=== PATIENT | female | born 1935 | race African-American/Black ===

== ENCOUNTER 2020-12-08 12:37 | Emergency (ER) | payer MEDICARE, SELFPAY ==
[2020-12-08] VITALS (9 sets, daily range): BP systolic 100–159; BP diastolic 46–82; PULSE 54–82; RESP 14–19; TEMP 36.4–37; O2SAT 99–100
--- NOTE | ~2020-12-08 | CT_ITS ---
EXAMINATION: CTA chest PE protocol EXAM DATE: 12/08/2020 17:03 INDICATION: Right-sided pain. TECHNIQUE: Spiral CTA of the chest (pulmonary arteries) was performed with 100 cc Omnipaque 350 intr avenous contrast injection. Images were acquired during the pulmonary arterial phase. Coronal maxi mum intensity projection 3D-reconstructions were created by the technologist on dedicated workstation . Axial, coronal and sagittal reformatted images were reviewed. The dose-length product (DLP) for t his examination was 206.35 mGy-cm. The exposure was tailored according to patient size (auto mA exp osure control), and iterative reconstruction (ASIR) was used as additional dose reduction technique. There is no prior study for comparison. FINDINGS: Pulmonary arteries are well opacified and without intraluminal filling defects. No thora cic aortic dissection. The lungs are clear. There are no pleural or pericardial effusions. Trach eobronchial tree is patent. There is no mediastinal, hilar or axillary lymphadenopathy. There is no pneumothorax. Heart normal in size. There is mild coronary arterial calcification, arterial sc lerosis. There are dense mitral annular calcifications. Upper abdomen is unremarkable. Patient has diffuse idiopathic skeletal hyperostosis (DISH). IMPRESSION: 1. No pulmonary emboli or acute cardiopulmonary findings. 2. Mild to moderate emphysema. Reviewed, dictated and finalized at location A.
--- NOTE | ~2020-12-08 | XR_ITS ---
EXAMINATION: XR chest 2V EXAM DATE: 12/08/2020 13:58 INDICATION: Epigastric chest pressure. TECHNIQUE: Frontal and lateral projections of the chest obtained and reviewed. There is no prior kevin dy for comparison. FINDINGS: There are dense mitral annular calcifications. Some chronic hyperinflation. There is aorti c arteriosclerosis. There are bony degenerative changes. Mild cardiomegaly. No confluent consolidatio n, pneumothorax or pleural effusion suspected. IMPRESSION: 1. Mild cardiomegaly. Reviewed, dictated and finalized at location A. IMPRESSION: 1. Mild cardiomegaly.
--- NOTE | 2020-12-08 12:40 | ECG_ITS ---
Measurements Intervals Palmer Rate: 63 P: 74 MA: 166 QRS: 8 QRSD: 105 T: 46 QT: 349 QTc: 357 Interpretive Statements SINUS RHYTHM NONSPECIFIC T-WAVE ABNORMALITY- INF/HIGH LAT LEADS BORDERLINE ECG Electronically Signed On 12-08-2020 15:22:59 CDT by Avery Valencia D.O.
[2020-12-08 12:59] LABS: Basophils Absolute Auto 0.1 K/mm3 (0.0-0.1); Basophils Percent Auto 0.6 % (0.2-1.2); Eosinophils Absolute Auto 0.4 K/mm3 (0-0.3); Eosinophils Percent Auto 4.6 % (0-4.4); Hemoglobin 12.2 g/dL (12.0-15.0); Immature Granulocyte Absolute 0.01 K/mm3 (0.00-0.031); Immature Granulocyte Percent A 0.1 % (0-0.5); Lymphocytes Absolute Auto 2.69 K/mm3 (0.9-3.2); Mean Corpuscular HGB Conc 31.3 g/dl (32-36); Mean Corpuscular Hemoglobin 27.3 pg (26-34); Mean Corpuscular Volume 87.2 fl (80-100); Mean Platelet Volume 11.1 fl (7.4-10.4); Monocytes Absolute Auto 0.7 K/mm3 (0.1-0.6); Monocytes Percent Auto 7.8 % (2.6-8.5); Neutrophils Absolute Auto 4.9 K/mm3 (1.3-6.7); Neutrophils Percent Auto 55.9 % (45.5-73.1); Platelet Count Result 220 k/mm3 (150-375); Red Blood Count 4.47 M/mm3 (4.2-5.4); Red Cell Distribution Width 14.9 % (11.5-14.5); White Blood Count 8.7 K/mm3 (4.5-10.0)
[2020-12-08 13:10] LABS: INR 1.1; Partial Thromboplastin Time 24.7 SECONDS (22.3-36.8); Prothrombin Time 13.7 Seconds (11.1-14.7)
[2020-12-08 13:11] LABS: Anion Gap 8 mmol/L (8-16); Blood Urea Nitrogen 23 mg/dL (7-17); Calcium 9.4 mg/dL (8.4-10.2); Carbon Dioxide 23 mmol/L (22-30); Chloride 110 mmol/L (98-107); Estimated Glomerular Filt Rate 60; Glucose 171 mg/dL (65-105); Potassium 3.2 mmol/L (3.4-5.0); Sodium 141 mmol/L (137-145)
[2020-12-08 13:43] LABS: Troponin I < 0.012 ng/mL (0.000-0.034)
--- NOTE | 2020-12-08 15:43 | ED.GENADULT ---
HPI - General Adult General Chief complaint: Chest Pain Stated complaint: Epigastric Pain Time Seen by Provider: 12/08/20 14:10 Source: patient History of Present Illness HPI narrative: Patient is a 85 y/o female complaining chest pain starting approximately 2 hours ago. She states that her pain is located under both her of breast and feels like a pressure. She rates her pain as 10/10 initially, but almost completely gone at this time. She was given Aspirin and Nitro by EMS. She had some sweating. She has no SOB or vomiting. Related Data Home Medications Medication Instructions Recorded Confirmed atorvastatin 12/08/20 clonidine HCl 12/08/20 losartan 50 mg PO DAILY 12/08/20 12/08/20 triamterene 12/08/20 verapamil 12/08/20 Allergies Allergy/AdvReac Type Severity Reaction Status Date / Time No Known Allergies Allergy Verified 12/08/20 14:12 Review of Systems Review of Systems: All systems reviewed & are unremarkable except as noted in HPI and below Constitutional: Constitutional: Reports as per HPI, Denies chills, Reports excessive sweating, Denies fever(s), Denies headache(s) and Denies weakness Eyes: Eyes: Denies blurry vision ENT: Denies headache(s) and Denies neck pain Cardiovascular: Cardiovascular: Reports chest pain and Denies dyspnea Respiratory: Respiratory: Denies cough and Denies dyspnea Gastrointestinal: Gastrointestinal: Denies abdominal pain, Denies diarrhea, Denies nausea and Denies vomiting Genitourinary: Genitourinary: Denies hematuria and Denies dysuria Musculoskeletal: Musculoskeletal: Denies back pain and Denies neck pain Neurologic: Denies headache(s) and Denies weakness Exam Const: General: no acute distress and well developed Orientation/consciousness: oriented to person, oriented to place, oriented to time and patient oriented x3 HENMT: Head: normocephalic Ears: external ears normal General nose exam: Normal external nose present Eyes: General: appearance normal, both eyes and all related structures Conjunctivae: conjunctivae normal Neck: Neck: normal visual inspection and full ROM Chest: Chest palpation & inspection: normal inspection of the chest and no tenderness Resp: Effort & Inspection: normal respiratory effort Auscultation: clear to auscultation bilaterally Cardio: Rate: regular rate Rhythm: regular rhythm GI: GI Palp: No abdominal tenderness and Yes Soft to palpation Skin: General skin exam: normal color and turgor normal Neuro: General: oriented to person, oriented to place, oriented to time and patient oriented x3 Cognition (Neuro): normal cognition Extrem: General: normal to inspection, full ROM and no pedal edema Psych: Appearance: grossly normal Mental Status: mental status grossly normal Affect: normal affect Course Reevaluation(s) Reevaluation #1: Rechecked. Patient feels well. She has no chest pain at this time. Date: 12/08/20 Time: 19:25 Vital Signs Vital signs: Vital Signs Temperature 36.4 C L 12/08/20 13:30 Pulse Rate 56 L 12/08/20 13:30 Respiratory Rate 18 12/08/20 13:30 Blood Pressure 117/58 L 12/08/20 13:30 Pulse Oximetry 100 12/08/20 13:30 Temperature 36.4 C L 12/08/20 13:30 Pulse Rate 59 L 12/08/20 17:15 Respiratory Rate 19 12/08/20 17:15 Blood Pressure 146/78 H 12/08/20 17:15 Pulse Oximetry 100 12/08/20 17:15 Medical Decision Making Vital Signs Vital Signs: Vital Signs Temperature 36.4 C L 12/08/20 13:30 Pulse Rate 56 L 12/08/20 13:30 Respiratory Rate 18 12/08/20 13:30 Blood Pressure 117/58 L 12/08/20 13:30 Pulse Oximetry 100 12/08/20 13:30 Temperature 36.4 C L 12/08/20 13:30 Pulse Rate 59 L 12/08/20 17:15 Respiratory Rate 19 12/08/20 17:15 Blood Pressure 146/78 H 12/08/20 17:15 Pulse Oximetry 100 12/08/20 17:15 Lab Data Result diagrams: 12/08/20 12:51 12/08/20 12:51 Labs: Lab Results 12/08/20 12/08/20 12/08/20
[2020-12-08 16:16] LABS: Troponin I < 0.012 ng/mL (0.000-0.034)
[2020-12-08 16:36] LABS: D Dimer 0.88 ug/mL (<0.48)
[2020-12-08] MEDS: POTASSIUM CHLORIDE 20 MEQ TABLET PO (18:03)
[2020-12-08 19:13] LABS: Troponin I < 0.012 ng/mL (0.000-0.034)
== END 2020-12-08 19:55 | disposition home or self-care (01) ==
PROVIDERS: Emergency Provider Emergency Medicine
DX: E87.6 Hypokalemia (principal); R07.9 Chest pain, unspecified
CPT/HCPCS: 36415; 71046; 71275; 80048; 84484; 85025; 85380; 85610; 85730; 93005; 99284; A9270; Q9967

== ENCOUNTER 2023-11-28 15:53 | Emergency (ER) | payer MEDICARE, SELFPAY ==
[2023-11-28 16:03] VITALS: BP 154/66; PULSE 74; RESP 16; TEMP 37.1; O2SAT 98
--- NOTE | 2023-11-28 19:02 | ED.GENADULT ---
HPI - General Adult General Chief complaint: Skin/Abscess/Foreign Body Stated complaint: Throat Irritation Time Seen by Provider: 11/28/23 16:43 Source: patient and RN notes reviewed Mode of arrival: ambulatory Limitations: no limitations History of Present Illness HPI narrative: Patient presents today complaining of irritated throat with the foreign body sensation. States she woke up yesterday with the symptoms. She is still able to eat and drink appropriately without problems. She has tried no [id number] treatment prior to arrival. Denies any additional symptoms to include congestion, rhinorrhea, fever, cough, vomiting. Related Data Allergies Allergy/AdvReac Type Severity Reaction Status Date / Time No Known Allergies Allergy Verified 11/28/23 16:28 Review of Systems Review of Systems: CONSTITUTIONAL: Denies body aches, fever, chills, or sweats. EYES: Denies visual changes, redness, or discharge. ENT: Denies rhinorrhea, congestion, or otalgia.+ sore throat, foreign body sensation CARDIOVASCULAR: Denies chest pain, palpitations, or edema. RESPIRATORY: Denies cough or dyspnea. GASTROINTESTINAL: Denies abdominal pain, nausea, vomiting, or diarrhea. GENITOURINARY: Denies dysuria or hematuria. SKIN: Denies rash, itching, or wounds. MUSCULOSKELETAL: Denies back pain, joint pain, or myalgia. NEUROLOGIC: Denies headache, numbness, tingling, or weakness. PSYCH: Denies depression or anxiety. [facility] Past Medical History Medical History HLD (hyperlipidemia) HTN (hypertension) Postmenopausal Surgical History Surgical History History of cholecystectomy History of mastectomy Family History Family History Mother Breast cancer Social History Social History Smoking status: Former smoker Alcohol intake: current Drinks per week: 1 Alcohol use details: wine Substance use: never Current Housing: Decline to Answer Concerned About Future Housing: Decline to Answer Difficulty Paying Gas/Electric Bills: Decline to Answer Difficulty Paying for Meds: Decline to Answer Currently Unemployed: Decline to Answer Education: Decline to Answer Difficulty w/ Childcare or Family Care: Decline to Answer Living arrangements: alone Occupation/Education: retired Gender identity (if verbalized by the patient): Female Comments At time of signature, I have reviewed and agree with nursing past medical, surgical, social and family history unless otherwise noted. Please see nursing chart for further information. There is no relevant family history pertinent to the presenting complaint Exam Narrative: GENERAL: Well-appearing, well-nourished, and in no acute distress. HEAD: Normocephalic, atraumatic. EYES: EOMI. No redness or drainage. Conjunctivae normal. ENT: Mucous membranes pink and moist. Nares clear. No rhinorrhea. Throat mildly erythematous and edematous without exudate. Uvula midline. NECK: Normal AROM. Supple. No lymphadenopathy. Thyroid normal and nontender. CHEST: No respiratory distress. Clear to auscultation. HEART: Regular rate and rhythm. No murmur appreciated. EXTREMITIES: Normal range of motion. No edema. SKIN: Warm, dry, no rash. Capillary refill normal. Normal skin turgor. NEURO: No focal deficits. Alert and oriented x3. Gait steady. PSYCH: Normal affect. No signs of depression or anxiety. Course Course Level of Care: Express Care Visit Vital Signs Vital signs: Vital Signs Temperature 98.7 F 11/28/23 16:03 Pulse Rate 74 11/28/23 16:03 Respiratory Rate 16 11/28/23 16:03 Blood Pressure 154/66 H 11/28/23 16:03 Pulse Oximetry 98 11/28/23 16:03 Oxygen Delivery Room Air 11/28/23 16:03 Temperature 98.7 F 11/28/23 16:03 P
== END 2023-11-28 17:06 | disposition home or self-care (01) ==
PROVIDERS: Emergency Provider Nurse Practitioner; PCP Emergency Medicine
DX: R07.0 Pain in throat (principal); E78.5 Hyperlipidemia, unspecified; I10 Essential (primary) hypertension; Z87.891 Personal history of nicotine dependence
CPT/HCPCS: 87081; 87880; 99213; G0463

== ENCOUNTER 2023-12-15 10:12 | Emergency (ER) | payer MEDICARE, SELFPAY ==
--- NOTE | 2023-12-15 10:20 | ED.GENADULT ---
HPI - General Adult General Chief complaint: Unspecified Stated complaint: High B/P/ Unable To Swallow Time Seen by Provider: 12/15/23 10:41 Source: patient and family Mode of arrival: ambulatory History of Present Illness HPI narrative: patient arrives accompanied by her granddaughter. Patient states that she has a foreign body sensation in her throat. She was seen for this approximately 1 month ago. She has not followed up for her condition. She reports that she is able to swallow, but gets a sensation that pills get stuck. She reports that she did not take her blood pressure medication today because she did not want to feel this sensation. She denies any injury or trauma. She denies any choking. She is able to eat and drink, states biggest difficulty is swallowing pills Related Data Allergies Allergy/AdvReac Type Severity Reaction Status Date / Time No Known Allergies Allergy Verified 12/15/23 10:14 Review of Systems Constitutional: Constitutional: Reports as per HPI Eyes: Eyes: Reports as per HPI and Reports no additional eye complaints ENT: Reports as per HPI, Denies hoarseness, Denies neck pain and Denies tongue swelling Cardiovascular: Cardiovascular: Reports as per HPI and Reports no additional cardiovascular complaints Respiratory: Respiratory: Reports as per HPI and Reports no additional respiratory complaints Gastrointestinal: Gastrointestinal: Reports as per HPI and Denies abdominal pain PMFSH Past Medical History Medical History HLD (hyperlipidemia) HTN (hypertension) Postmenopausal Surgical History Surgical History History of cholecystectomy History of mastectomy Family History Family History Mother Breast cancer Social History Social History Smoking status: Former smoker Alcohol intake: current Drinks per week: 1 Alcohol use details: wine Substance use: never Current Housing: Decline to Answer Concerned About Future Housing: Decline to Answer Difficulty Paying Gas/Electric Bills: Decline to Answer Difficulty Paying for Meds: Decline to Answer Currently Unemployed: Decline to Answer Education: Decline to Answer Difficulty w/ Childcare or Family Care: Decline to Answer Living arrangements: alone Occupation/Education: retired Gender identity (if verbalized by the patient): Female Exam Const: General: cooperative, comfortable and no acute distress HENMT: Mouth: Yes Normal oral and palatal mucosa present, No drooling and No restricted motion Throat: posterior oropharynx normal Eyes: General: appearance normal, both eyes and all related structures Neck: Neck: normal visual inspection, full ROM, no lymphadenopathy, trachea midline, no anterior neck swelling, no lymphadenopathy noted, no midline deformity and nontender Resp: Effort & Inspection: normal respiratory effort and able to speak in complete sentences Cardio: Palpation: normal PMI Rate: regular rate Rhythm: regular rhythm Neuro: Cranial nerves: Yes CN's II-XII intact bilaterally Psych: Appearance: grossly normal Course Course Level of Care: Express Care Visit Vital Signs Vital signs: Vital Signs Temperature 98.4 F 12/15/23 10:34 Pulse Rate 90 12/15/23 10:34 Respiratory Rate 14 12/15/23 10:34 Blood Pressure 160/65 H 12/15/23 10:34 Pulse Oximetry 100 12/15/23 10:34 Oxygen Delivery Room Air 12/15/23 10:34 Temperature 98.4 F 12/15/23 10:34 Pulse Rate 90 12/15/23 10:34 Respiratory Rate 14 12/15/23 10:34 Blood Pressure 160/65 H 12/15/23 10:34 Pulse Oximetry 100 12/15/23 10:34 Oxygen Delivery Room Air 12/15/23 10:34 Medical Decision Making MDM Narrative Medical decision making narrative: patient with elevated blood
[2023-12-15 10:34] VITALS: BP 160/65; PULSE 90; RESP 14; TEMP 36.9; O2SAT 100
== END 2023-12-15 11:00 | disposition home or self-care (01) ==
PROVIDERS: Emergency Provider Nurse Practitioner Family; PCP Emergency Medicine
DX: K22.2 Esophageal obstruction (principal); I10 Essential (primary) hypertension; Z87.891 Personal history of nicotine dependence; E78.5 Hyperlipidemia, unspecified
CPT/HCPCS: 99211; G0463

== ENCOUNTER 2023-12-23 20:15 | Emergency (ER) | payer MEDICARE, SELFPAY ==
[2023-12-23 20:36] VITALS: BP 211/72; PULSE 86; RESP 18; TEMP 36.8; O2SAT 98
[2023-12-24 00:16] VITALS: BP 208/76; PULSE 76; RESP 18; O2SAT 100
--- NOTE | 2023-12-24 03:11 | PC.NURSE ---
no answer at triage
== END 2023-12-24 03:43 | disposition left against medical advice (07) ==
PROVIDERS: PCP Emergency Medicine
DX: R13.10 Dysphagia, unspecified (principal)
CPT/HCPCS: 99199

== ENCOUNTER 2024-01-20 00:07 | Day surgery (SDC) | payer MEDICARE, SELFPAY ==
[2024-01-09 13:27] VITALS: BMI 27.5
[2024-01-20 09:32] VITALS: BP 178/72; PULSE 78; RESP 20; TEMP 36; O2SAT 98; BMI 26.2
--- NOTE | 2024-01-20 09:42 | WPDANESEPPF ---
Anes - Initial Pre Proc Eval Procedure: Operation Date: 01/20/24 11:00 Proposed Procedures p Esophagogastroduodenoscopy - Darion Denny MD Date/Time: 01/20/24 09:42 Surgeon: Darion Denny MD Pre Op Diagnosis: Dysphagia, foreign body sensation, throat Patient Data Age: 88 Gender: F Height: 1.52 m Weight: 61 kg Last Vital Signs Temp 36.0 C L 01/20/24 09:32 Pulse 78 01/20/24 09:32 Resp 20 01/20/24 09:32 BP 178/72 H 01/20/24 09:32 Pulse Ox 98 01/20/24 09:32 O2 Del Method Room Air 01/20/24 09:32 Allergies Allergy/AdvReac Type Severity Reaction Status Date / Time No Known Allergies Allergy Verified 01/20/24 09:31 Home Medications Medication Instructions Recorded Confirmed Type cholecalciferol (vitamin D3) 50 50 mcg PO DAILY #90 caps 06/22/23 01/20/24 Rx mcg (2,000 unit) capsule triamcinolone acetonide 55 mcg 1 spray intranasal DAILY #16.9 mL 06/22/23 01/20/24 Rx nasal spray aerosol (Nasacort) atorvastatin 40 mg tablet 40 mg PO DAILY #100 tabs 06/29/23 01/20/24 Rx magnesium oxide 400 mg (241.3 mg 400 mg PO DAILY #100 tabs 06/29/23 01/20/24 Rx magnesium) tablet potassium chloride 10 mEq 10 meq PO DAILY #100 tabs 06/29/23 01/20/24 Rx tablet,extended release clonidine HCl 0.2 mg tablet 0.2 mg PO DAILY #90 tabs 07/01/23 01/20/24 Rx fluticasone propionate 50 1 spray intranasal BID #16 grams 07/27/23 01/20/24 Rx mcg/actuation nasal spray,suspension (Flonase Allergy Relief) alprazolam 0.5 mg tablet 0.5 mg PO BID PRN anxiety #30 tabs 11/10/23 01/20/24 Rx omeprazole 40 mg capsule,delayed 40 mg PO DAILY #90 caps 01/05/24 01/20/24 Rx release hydralazine 50 mg tablet 50 mg PO BID 01/09/24 01/20/24 History hydrochlorothiazide 25 mg tablet 25 mg PO DAILY #90 tabs 01/11/24 01/20/24 Rx Patient hx anesthesia problems: none Family hx anesthesia problems: none Results Review: All pre-operative results and documents have been reviewed as part of the pre-operative evaluation. [facility] Past Medical History Medical History HLD (hyperlipidemia) HTN (hypertension) Postmenopausal Surgical History Surgical History History of cholecystectomy Family History Family History Mother Breast cancer Social History Social History Smoking status: Former smoker Tobacco type: cigarettes Alcohol intake: current Drinks per week: 1 Alcohol use details: social Substance use: never Last use: 1993 Current Housing: Decline to Answer Concerned About Future Housing: Decline to Answer Difficulty Paying Gas/Electric Bills: Decline to Answer Difficulty Paying for Meds: Decline to Answer Currently Unemployed: Decline to Answer Education: Decline to Answer Difficulty w/ Childcare or Family Care: Decline to Answer Living arrangements: alone Occupation/Education: retired Gender identity (if verbalized by the patient): Female Spiritual care concerns: No Anes - Eval Final PreProcedure Day of Procedure 01/20/24 09:42 Patient weight: overweight Heart: regular rate and rhythm Lungs: clear to auscultation Airway: Mallampati scale class II Neurological: alert and oriented Last oral intake: >/= 8 hours ASA classification: III Emergent: no Anesthetic plan: proceed Anesthesia type and monitoring: general GIVS and standard monitoring Results Review: All pre-operative results and documents have been reviewed as part of the pre-operative evaluation. Informed Consent: The patient's anesthetic plan and its attendant risks and benefits were discussed with the patient/family/POA. Questions were solicited and answers provided to the satisfaction of the patient/family/POA.
--- NOTE | 2024-01-20 09:43 | PM.HPGS ---
History of Present Illness History of Present Illness Consent: Risks, benefits, and alternatives have been discussed and questions answered. Patient agrees to proceed with procedure. Chief complaint: Dysphagia, foreign body sensation, throat Narrative: Milena Mederos is a 88 year old female with sore throat, here for egd Review of Systems Review of Systems: All systems reviewed & are unremarkable except as noted in HPI and below PMFSH Past Medical History Medical History HLD (hyperlipidemia) HTN (hypertension) Postmenopausal Surgical History Surgical History History of cholecystectomy Family History Family History Mother Breast cancer Social History Social History Smoking status: Former smoker Tobacco type: cigarettes Alcohol intake: current Drinks per week: 1 Alcohol use details: social Substance use: never Last use: 1993 Current Housing: Decline to Answer Concerned About Future Housing: Decline to Answer Difficulty Paying Gas/Electric Bills: Decline to Answer Difficulty Paying for Meds: Decline to Answer Currently Unemployed: Decline to Answer Education: Decline to Answer Difficulty w/ Childcare or Family Care: Decline to Answer Living arrangements: alone Occupation/Education: retired Gender identity (if verbalized by the patient): Female Spiritual care concerns: No Meds Home Medications and Allergies Home Medications Medication Instructions Recorded Confirmed Type cholecalciferol (vitamin D3) 50 50 mcg PO DAILY #90 caps 06/22/23 01/20/24 Rx mcg (2,000 unit) capsule triamcinolone acetonide 55 mcg 1 spray intranasal DAILY #16.9 mL 06/22/23 01/20/24 Rx nasal spray aerosol (Nasacort) atorvastatin 40 mg tablet 40 mg PO DAILY #100 tabs 06/29/23 01/20/24 Rx magnesium oxide 400 mg (241.3 mg 400 mg PO DAILY #100 tabs 06/29/23 01/20/24 Rx magnesium) tablet potassium chloride 10 mEq 10 meq PO DAILY #100 tabs 06/29/23 01/20/24 Rx tablet,extended release clonidine HCl 0.2 mg tablet 0.2 mg PO DAILY #90 tabs 07/01/23 01/20/24 Rx fluticasone propionate 50 1 spray intranasal BID #16 grams 07/27/23 01/20/24 Rx mcg/actuation nasal spray,suspension (Flonase Allergy Relief) alprazolam 0.5 mg tablet 0.5 mg PO BID PRN anxiety #30 tabs 11/10/23 01/20/24 Rx omeprazole 40 mg capsule,delayed 40 mg PO DAILY #90 caps 01/05/24 01/20/24 Rx release hydralazine 50 mg tablet 50 mg PO BID 01/09/24 01/20/24 History hydrochlorothiazide 25 mg tablet 25 mg PO DAILY #90 tabs 01/11/24 01/20/24 Rx Allergies Allergy/AdvReac Type Severity Reaction Status Date / Time No Known Allergies Allergy Verified 01/20/24 09:31 Vital Signs Vital Signs - 24 hr 01/20/24 09:32 Temperature 96.8 F L Pulse Rate 78 Respiratory Rate 20 Blood Pressure 178/72 H Pulse Oximetry 98 Oxygen Delivery Room Air Exam Const: General: comfortable and no acute distress HENMT: Face/Nose/Sinus: Normal nares present Eyes: General: appearance normal, both eyes and all related structures Neck: Neck: no JVD Resp: Auscultation: clear to auscultation bilaterally Cardio: Rate: regular rate Rhythm: regular rhythm GI: Inspection: non-distended GI Palp: Yes Soft to palpation Skin: General skin exam: normal color Neuro: General: gait normal Speech: normal speech Extrem: General: normal to inspection Psych: Mental Status: mental status grossly normal Assessment and Plan Assessment and plan (1) Globus sensation: Code(s): R09.A2 - Foreign body sensation, throat Status: Acute Assessment and Plan: egd to assess if negative then may benefit to see ent
[2024-01-20] MEDS: LACTATED RINGERS 1,000 ML 150 ML IV CONT (09:49)
[2024-01-20 09:59] VITALS: BP 176/78; PULSE 75; RESP 21; O2SAT 95
[2024-01-20 10:09] VITALS: BP 181/83; PULSE 75; RESP 28; O2SAT 96
[2024-01-20 10:19] VITALS: BP 182/70; PULSE 67; RESP 20; O2SAT 96
== END 2024-01-20 10:41 | disposition home or self-care (01) ==
PROVIDERS: PCP Emergency Medicine; Referring Provider Nurse Practitioner; Visit Provider Internal Medicine Gastroenterology
PROC: 0DJ08ZZ Inspection of Upper Intestinal Tract, Via Natural or Artificial Opening Endoscopic (ICD-10-PCS; CPT 43235; principal; 2024-01-20 11:00)
DX: K29.50 Unspecified chronic gastritis without bleeding (principal); I10 Essential (primary) hypertension; E78.5 Hyperlipidemia, unspecified; N95.0 Postmenopausal bleeding; Z98.890 Other specified postprocedural states; Z90.49 Acquired absence of other specified parts of digestive tract; Z87.891 Personal history of nicotine dependence; Z80.3 Family history of malignant neoplasm of breast
CPT/HCPCS: 43239; 88305; J2704; J7120

== ENCOUNTER 2024-06-08 14:30 | Outpatient (CLI) | payer MEDICARE, SELFPAY ==
[2024-06-12 07:57] LABS: H pylori Ag Stool Detected
== END 2024-06-08 14:31 | disposition home or self-care (01) ==
LOC: ANHLAB 14:32
PROVIDERS: Visit Provider Internal Medicine Gastroenterology
DX: K29.70 Gastritis, unspecified, without bleeding (principal); B96.81 Helicobacter pylori [H. pylori] as the cause of diseases classified elsewhere
CPT/HCPCS: 87338

== ENCOUNTER 2024-09-27 16:38 | Outpatient (CLI) | payer MEDICARE, SELFPAY ==
--- OUTSIDE RECORDS SUMMARY | 2024-09-27 17:25 | XMS_ITS | Clinical Summary ---
Author Organization [facility] Address [address] [place] [id number] Care Team Providers Care Trader Fixed Income Name Role Phone Herlinda Peña GROUND HAND Primary Care Provider [phone] Social History Tobacco Use Types Packs/Day Years Used Date Smoking Tobacco: Never Assessed Comments Unknown Sex and Gender Information Value Date Recorded Sex Assigned at Not on file Legal Sex Female 9:56 AM CDT Gender Identity Not on file Sexual Orientation Not on file Plan of Treatment Health Maintenance Due Date Last Done Comments DTaP, Tdap and Td Vaccines (1 - Tdap) 12/05/1954 Zoster Vaccines (1 of 2) 12/05/1985 Annual Medicare Wellness Visit 12/05/2000 RSV Immunization or 60+ Years (1 - 1-dose 75+ series) 12/05/2010 COVID-19 Vaccine ( season) 2024 03/03/2022, 07/03/2021, 06/12/2021, Additional history exists PHQ-2 (Physician [facility]) 06/06/2024 Pneumococcal Vaccine: 50+ Years Completed 12/22/2021, 02/10/2017 Meningococcal B Vaccine Aged Out No l onger eligible based on patient's age to complete this topic Meningococcal Vaccine Aged Out No jefferson zafar eligible based on patient's age to complete this topic RSV Immunizations Under 20 Months Aged Out No longer eligible based on patient's age to complete this topic Insurance [employer] Member Subscriber Plan / Payer (Ef fective 2023-Present) Name:Milena Mederos Relation to Subscriber:Self Name:Milena Mederos Payer ID:[id number] (NAIC) Type:Not on file Address: [address] [address] Care Teams Trader Fixed Income Relationship Specialty Start Date End Date Herlinda Peña NP [address] [place] [address] PCP - General Nurse Practitioner Family 01/09/24
--- OUTSIDE RECORDS SUMMARY | 2024-09-27 17:25 | XMS_ITS | Clinical Summary ---
Author Organization [facility] Address [address] [place] [phone] Phone Care Team Providers Care Oncology Technician Name Role Phone Provider, None Primary Care Provider Unavailabl e Allergies No known active allergies Social History Tobacco Use Types Packs/Day Years Used Date Smoking Tobacco: Never Assessed Comments Unknown Sex and Gender Information Value Date Recorded Sex Assigned at Not on file Legal Sex Female 8:08 AM CDT Gender Identity Not on file Sexual Orientation Not on file Plan of Treatment Health Maintenance Due Date Last Done Comments DEXA Bone Density 1935 Hepatitis C Virus (HCV) Screening 1935 TdaP Immunization 1935 Zoster Immunization (1 of 2) 12/05/1985 Respiratory Syncytial Virus (RSV) Immunization (Adult) (1 - 1-dose 75+ series) 12/05/2010 Influenza Immunization (#1) 02/05/202404/06, 04/21/2021, 03/27/2020, Additional history exists SARS-COV-2 Immunization (2023- season) 2024 03/03/2022, 07/03/2021, 06/12/2021, Additional history exists Pneumococcal Immunization (50+ years) Completed 12/22/2021, 02/10/2017 Hepatitis B Immunization Aged Out No longer eligible based on patient's age to complete this topic Meningococcal Immunization (ACWY) Aged Out No longer eligible based on patient's age to complete this topic Rotavirus Immunization Aged Out No lo nger eligible based on patient's age to complete this topic [place] [address] Care Teams Oncology Technician Relationship Specialty Start Date End Date Provider, None [place] PCP - General 09/07/22
== END 2024-09-27 16:39 | disposition home or self-care (01) ==
LOC: ANHLAB 16:44
PROVIDERS: Visit Provider Internal Medicine Gastroenterology
DX: A04.8 Other specified bacterial intestinal infections (principal)
CPT/HCPCS: 87338

== ENCOUNTER 2024-10-21 06:13 | Inpatient (IN) | payer MEDICARE, SELFPAY ==
[2024-10-21] VITALS (28 sets, daily range): BP systolic 121–182; BP diastolic 52–99; PULSE 52–117; RESP 12–27; TEMP 36.4–37; O2SAT 70–100; BMI 26.4
--- NOTE | ~2024-10-21 | XR_ITS ---
EXAMINATION: XR sm bowel follow through DATE: 10/23/2024 12:25 INDICATION: Small bowel obstruction. Abdominal pain. TECHNIQUE: Sliver Lap Machine Tender radiograph(s) of the abdomen was/were obtained. Oral contrast was administered, and sequential radiographs of the abdomen were obtained until oral contrast was noted to be in the proxi mal colon. COMPARISON: CT dated 10/21/2024 FINDINGS: Sliver Lap Machine Tender radiograph demonstrates nasogastric tube tip in proximal side port in the body of the stomach. Cholecystectomy clips in right upper quadrant. Persistent mildly dilated gas-filled loops of small charlie wel in the left lower quadrant. Transit time from the stomach to proximal colon was approximately 3 h ours. Persistent mild dilation of a few loops of small bowel in the central to left lower quadrant of the abdomen. There is a normal mucosal fold pattern throughout the small bowel. IMPRESSION: 1. Persistent mild dilation of a few loops of small bowel in the mid to left lower quadrant of the ab domen with mildly delayed small bowel transit time of 3 hours consistent with persistent partial smal l bowel obstruction. Reviewed, dictated and finalized at location A. IMPRESSION: 1. Persistent mild dilation of a few loops of small bowel in the mid to left lo wer quadrant of the abdomen with mildly delayed small bowel transit time of 3 h ours consistent with persistent partial small bowel obstruction.
--- NOTE | ~2024-10-21 | XR_ITS ---
EXAMINATION: XR abdomen/kub 1V DATE: 10/23/2024 06:06 INDICATION: Small bowel obstruction TECHNIQUE: A supine view of the abdomen on 2 radiographs was obtained. COMPARISON: 10/22/2024 FINDINGS: Nasogastric tube tip in proximal side port in the body of the stomach. Cholecystectomy clips in right upper quadrant. Again seen are few mildly dilated gas-filled loops of small bowel in the central abd omen consistent with small bowel obstruction. Mild streaky bibasilar opacities represent atelectasis or pneumonia. Severe lumbar spondylosis. IMPRESSION: 1. Persistent small bowel obstruction. 2. Mild streaky bibasilar atelectasis versus pneumonia. Reviewed, dictated and finalized at location A.
--- NOTE | ~2024-10-21 | XR_ITS ---
Exam: Abdomen 1V HISTORY: sbo COMPARISON: 10/21/2024 TECHNIQUE: Supine images of the abdomen FINDINGS: Redemonstration of a nasogastric tube, projecting over the left upper quadrant, presumably within the stomach. The tube is curved upon itself, for which withdrawal of approximately 4 cm is suggested for optimal r adiographic placement. Redemonstration of multiple loops of prominent small bowel, to the left of midline within the mid to lower abdomen, without nicho dilatation. These loops measure 2.7 cm in greatest caliber. Moderate mural thickening is, however, noted. A paucity of bowel gas within the colon. Redemonstration of a focus of air within the distal colon, without air in the rectum. IMPRESSION: Findings consistent with patient's known small bowel obstruction. Small bowel follow-through with water soluble contrast may provide additional information (and may we ll be therapeutic), if the patient is clinically able. Reviewed, dictated and finalized at location A. IMPRESSION: Findings consistent with patient's known small bowel obstruction. Small bowel follow-through with water soluble contrast may provide additional i nformation (and may well be therapeutic), if the patient is clinically able.
--- NOTE | ~2024-10-21 | XR_ITS ---
Upright portable view of the abdomen Clinical history: NG tube placement Findings: NG tube placed in satisfactory position. Bowel gas pattern is nonspecific. No evidence for obstruction or free air. No abnormal mass lesion or calcification is seen. Osseous structures are int act. Impression: NG tube in satisfactory position. Nonspecific bowel gas pattern as imaged. Reviewed, dictated and finalized at [facility]. Impression: NG tube in satisfactory position. Nonspecific bowel gas pattern as imaged.
--- NOTE | ~2024-10-21 | CT_ITS ---
CT of the Abdomen and Pelvis: Indication: Abdominal pain Technique: 2.5 mm axial scans were obtained through the abdomen and pelvis following intravenous adm inistration of 100 cc of Omnipaque 350. Dose reduction technique was used on this scan by utilizing a utomated exposure control and iterative reconstruction technique. The dose-length product (DLP) was 3 25.89 mGy-cm. Findings: Scans through the lung bases are unremarkable. The liver, spleen, pancreas, and adrenal glands are within normal limits. Cholecystectomy clips are p resent. Bilateral renal cysts are present. There are severe, extensive atherosclerotic calcifications of the aorta and iliac vessels. No lymphadenopathy. There are multiple mildly distended small bowel loops at the proximal to mid small bowel with decompr essed distal small bowel and large bowel. There is small amount of ascites with diffuse mesenteric ed peter and engorgement of the vasa recta, especially in the lower abdomen/pelvis. Findings are compatibl e with small bowel obstruction. Images through the pelvis were performed. Urinary bladder unremarkable. Status post hysterectomy. No adnexal mass seen. Impression: Small bowel obstruction, as detailed above. Associated small amount of ascites and mesenteric edema. Reviewed, dictated and finalized at location . Impression: Small bowel obstruction, as detailed above. Associated small amount of ascites and mesenteric edema.
--- NOTE | ~2024-10-21 | XR_ITS ---
Supine and upright views of the abdomen Clinical history: Small bowel obstruction COMPARISON: 10/23/2024 Findings: NG tube in place. No free air seen. Oral contrast present in large bowel. A few minimally d istended small bowel loops are present, decreased in caliber from prior exam. No abnormal mass lesion or calcification is seen. Osseous structures are intact. Impression: Nonspecific bowel gas pattern overall. NG tube in place. Reviewed, dictated and finalized at location . Impression: Nonspecific bowel gas pattern overall. NG tube in place.
--- NOTE | ~2024-10-21 | XR_ITS ---
Portable chest x-ray Comparison: 12/08/2020 Clinical History: Leukocytosis Findings: NG tube in satisfactory position. Lungs are clear, without focal consolidation or pleural effusion. Possible COPD. Prominent mitral annular calcification present. Cardiomediastinal silhouett e is stable. Bones and soft tissues are unremarkable. Impression: Clear lungs. Possible COPD. NG tube in place. Reviewed, dictated and finalized at location M. Impression: Clear lungs. Possible COPD. NG tube in place.
--- NOTE | 2024-10-21 06:14 | ECG_ITS ---
Test Date: 2024-10-21 06:18:58 Measurements Intervals [place] Rate: 94 P: 0 OK: 0 QRS: 19 QRSD: 104 T: 256 QT: 407 QTc: 510 Interpretive Statements ATRIAL FIBRILLATION NONSPECIFIC ST AND T-WAVE ABNORMALITY ABNORMAL ECG No previous ECG available for comparison Electronically Signed On 10-21-2024 08:11:13 CDT by Travis Ac M.D.
[2024-10-21 06:27] LABS: Basophils Absolute Auto 0.1 K/mm3 (0.0-0.1); Basophils Percent Auto 0.4 % (0.2-1.2); Hematocrit 41.3 % (37.0-47.0); Immature Granulocyte Absolute 0.05 K/mm3 (0.00-0.031); Immature Granulocyte Percent A 0.3 % (0-0.5); Lymphocytes Percent Auto 5.5 % (18.3-44.2); Mean Corpuscular HGB Conc 31.5 g/dl (32-36); Mean Corpuscular Hemoglobin 28.8 pg (26-34); Mean Corpuscular Volume 91.6 fl (80-100); Mean Platelet Volume 11.4 fl (7.4-10.4); Monocytes Absolute Auto 0.8 K/mm3 (0.1-0.6); Monocytes Percent Auto 5.2 % (2.6-8.5); Neutrophils Absolute Auto 14.4 K/mm3 (1.3-6.7); Neutrophils Percent Auto 88.6 % (45.5-73.1); Platelet Count Result 257 k/mm3 (150-375); Red Blood Count 4.51 M/mm3 (4.2-5.4); Red Cell Distribution Width 14.5 % (11.5-14.5); White Blood Count 16.2 K/mm3 (4.5-10.0)
[2024-10-21 06:41] LABS: Alanine Aminotransferase 43 U/L (6-35); Albumin Level 4.3 g/dL (3.5-5.1); Alkaline Phosphatase 99 U/L (38-126); Anion Gap 9 mmol/L (4-12); Aspartate Amino Transferase 40 U/L (14-36); Bilirubin,Total 1.3 mg/dL (0.2-1.3); Blood Urea Nitrogen 21 mg/dL (7-17); Calcium 10.1 mg/dL (8.4-10.2); Carbon Dioxide 29 mmol/L (22-30); Chloride 103 mmol/L (98-107); Estimated CRCL calculation 41 ml/min; Estimated Glomerular Filt Rate > 60; Glucose 265 mg/dL (65-110); Lipase 96 U/L (23-300); Potassium 2.7 mmol/L (3.4-5.0); Sodium 141 mmol/L (137-145)
[2024-10-21] MEDS: MORPHINE SULFATE (*CRX) 4 MG/ML INJ IV PUSH (06:41)
[2024-10-21] MEDS: PANTOPRAZOLE SODIUM IV 40 MG VIAL IV PUSH (06:41)
[2024-10-21] MEDS: ONDANSETRON INJ 4 MG/2 ML VIAL IV PUSH (06:41)
--- OUTSIDE RECORDS SUMMARY | 2024-10-21 06:43 | XMS_ITS | Clinical Summary ---
Author Organization [facility] Address [address] [place] [address] Care Team Providers Care Battery Starter Name Role Phone Herlinda Peña BRIM BUSTER Primary Care Provider [phone] Social History Tobacco Use Types Packs/Day Years [...] 07/03/2021, 06/12/2021, Additional history exists PHQ-2 (Physician [place]) 06/06/2024 Pneumococcal Vaccine: 50+ Years Completed 12/22/2021, 02/10/2017 Meningococcal B Vaccine Aged Out No l onger eligible based on patient's age to complete this topic Meningococcal Vaccine Aged Out No jefferson zafar eligible based on patient's age to complete this topic RSV Immunizations Under 20 Months Aged Out No longer eligible based on patient's age to complete this topic Insurance HUMANA Care Teams Battery Starter Relationship Specialty Start Date End Date Herlinda Peña NP [address] [place] [address] PCP - General Nurse Practitioner Family 01/09/24
--- OUTSIDE RECORDS SUMMARY | 2024-10-21 06:44 | XMS_ITS | Data Portability ---
Author Organization [facility], [facility]) Address [address] [place] [address] Care Team Providers Care Websphere Commerce Developer Name Role Phone ANNA NELSON Primary Care Provider [phone] [employer] PAUL RUBI (RADI OLOGY - RECORD REQUEST FAX) OTHER Assessment Encounter Date Assessment Date Assessment LastModified by Organization Details LastModified Time 04/01/2023 04/01/2023 87 y/o female wi th history of prior nicotine use, hyperlipidemiaand hypertension. She is presenting with lower extremity edema and heaviness. She states her legs feel like heavy logs. She is able to ambulate long distances without pain to the lower extremities and denies pain at rest. Milena reports she was previously instructed she had 70% blockage in the right lower extremity and advised to have a procedure if it gets to be 80% blocked. This most likely represents arterial claudication which puts her at a high risk for skin breakdown and/or loss of limb. In addition, she also displays symptoms of chronic venous insufficiency with worsening unilateral edema to the right lower extremity. She has been wearing compression therapy which mildly improves her symptoms. My recommendation is lower extremity arterial and venous ultrasound for further evaluation. I will discuss with her the results of her lower extremity ultrasound with her at her follow-up visit. I spent a total of 45 minutes with the patient. The time was spent reviewing the chart ,discussing with patient and/or family and forming a treatment plan. Not available 04/01/2023 15:14:17 05/13/2023 05/13/2023 87 y/o female wi th history of prior nicotine use, hyperlipidemia and hypertension presenting for lower extremity arterial and venous ultrasound. She continues to complain of lower extremity edema and heaviness (legs feel like logs) after lying down for a couple of hours. She states after she ambulates a few steps the heaviness resolves. She denies pain at rest and with ambulation. I have reviewed with her the lower extremity arterial and venous ultrasounds with her today. The lower extremity arterial ultrasound demonstrated an elevated velocity to the right common femoral (211 cm/s). Monophasic waveforms were seen to the left profunda and dorsalis pedis arteries. The bilateral ANTOINE's are within normal limits (right 1.3 and left 1.02). The bilateral TBI's are abnormally low (right 0.7 and left 0.49). A severe amount of plaque was seen to the bilateral common femoral arteries. Her lower extremity venous ultrasound was negative for DVT bilaterally. Reflux was seen to the left GSV; although her edema is worse on the right. Significant reflux was seen to the deep venous system. My recommendation since she denies pain at rest and with ambulation is to wear light grade compression and elevation. She would like to forego any procedure at this time. We will follow up with her in 6 months. Not available 05/13/2023 14:27:46 12/02/2023 12/02/2023 87 year old fema le with history of asymptomatic peripheral arterial disease and chronic venous insufficiency presenting for follow up. She denies pain at rest and with ambulation to the lower extremities. She complains of lower extremity edema and heaviness. She states she has a high salt diet likely contributing to her lower extremity edema. I discussed with her vein closure procedures given her lower extremity edema. She again does not desire to undergo any procedures at this time. We discussed conservative measures including limiting salt intake, elevation, and compression for her lower extremity edema. I recommended following up in 6 months or sooner should symptoms worsen or develop a decline in skin integrity. Not available 12/02/2023 23:12:59 Plan of Treatment Reminders Order Date Submit Date Provider Last Modified By Organization Details Last Modified Time Details Appointments None record ed. Lab None record ed. Referral None record ed. Procedures None record ed. Surgeries None record ed. Imaging None record ed. Medication Orders None record ed. Patient TargetsNo targets recorded. Patient InstructionsNo instructions recorded. Reason for Referral None Reported. Results Created Date Observation Date Name Description Value Unit Range Abnormal Flag Note LastModifiedBy Organization Detail LastModifiedTime 05/17/2005/13/2023 US, doppl er, venou s No observ ation record ed. [email or web address] Not Available 2022 08:50:03 05/27/20 23 05/13/2023 US, doppl er, arter ial No observ ation record ed. [email or web address] Not Available 05/07 14:22:06 Result Notes None recorded. Problems Name Problem SNOMED Code Status Onset Date Resolution Date Notes Provider Name and Address Organization Details Recorded Time Hypertensiv e disorder 59895825 Active 2022 amari Amanda [place], [place] - [facility] 13:37:55 Intermitten t claudicatio n of bilateral lower limbs co-occurren t and due to atheroscler osis 6557875616661 9108 Active 2022 Va [place], [place] - [facility] 14:03:31 Edema of lower extremity 166400105 Active 2022 Va [place], [place] - [facility] 14:03:37 Problem Notes None recorded. Procedures Surgical History Date Name Laterality Status Provider Name and Address Organization Details Recorded Time 05/13/20 23 OALEArterialUS1 completed Va FITCH - [facility] and 05/16/2023 14:03:21 05/13/20 23 OALEVenousUSreflux completed Va FITCH - [facility] 05/16/2023 14:03:22 Imaging Results Imaging Date Name Status LastModified by Organiz ation Details LastModified Time 05/13/2023 US, doppler, venous completed [email or web address] Information not available 05/17/2023 08:50:03 05/13/2023 US, doppler, arterial completed [email or web address] Information not available 05/29/2023 14:22:06 Procedure Notes None recorded. Medical Equipment None Reported. Allergies No known drug allergies Medications Name Sig Start Date Stop Date Status Note LastModified by Organization Details LastModified Time atorvastatin 40 mg tablet Take 1 tablet every day by oral route. active Not Available Not Available No t Available azithromycin 250 mg tablet TAKE 2 TABLETS BY MOUTH ON DAY 1, AND THEN TAKE 1 TABLET BY MOUTH ONCE A DAY ON DAY 2 THROUGH DAY 5 active Not Available Not Available No t Available amlodipine 5 mg tablet active Not Available Not Available No t Available ciclopirox 8 % topical solution APPLY SOLUTION TOPICALLY ONCE DAILY active Not Available Not Available N ot Available alprazolam 0.5 mg tablet TAKE 1 TABLET BY MOUTH TWICE DAILY NEEDED FOR ANXIETY active Not Available Not Available No t Available clonidine HCl 0.2 mg tablet active Not Available Not Available Not Available amlodipine 10 mg tablet active Not Available Not Available Not Available hydrochlorot hiazide 12.5 mg capsule Take 1 capsule every day by oral route. active Not Available Not Available No t Available amoxicillin 250 mg capsule TAKE 1 CAPSULE BY MOUTH TWICE DAILY FOR 10 DAYS active Not Available Not Available No t Available hydralazine 50 mg tablet active Not Available Not Available Not Available fluticasone propionate 50 mcg/actuatio n nasal spray,suspen omar USE 1 SPRAY(S) IN EACH NOSTRIL TWICE DAILY active Not Available Not Available Not Available potassium chloride ER 10 mEq tablet,exten ded release(part /cryst) active Not Available Not Available Not Available hydrochlorot hiazide 12.5 mg tablet active Not Available Not Available No t Available Paxlovid 300 mg (150 mg x 2)-100 mg tablets in a dose pack TAKE 3 TABLETS TOGETHER (TWO 150 MG NIRMATRELVI R TABLETS AND ONE 100 MG RITONAVIR TABLET) BY MOUTH TWICE DAILY FOR 5 DAYS. active Not Available Not Available No t Available Vitals Date Recorded Body height Body mass index (BMI) Body weight Heart rate Systolic blood pressure Diastolic blood pressure Provider Name and Address Organization Details Last Updated DateTime 3 152.4 cm 26.2 kg/m2 98499.3 8 g 73 /min 127 mm[Hg] 60 mm[Hg] [employer] [facility] 3 13:49:09 Date Recorded Body height Heart rate Systolic blood pressure Diastolic blood pressure Provider Name and Address Organization Details Last Updated DateTime 05/13/2023 152.4 cm 67 /min 122 mm[Hg] 64 mm[Hg] [employer] [facility] 05/13/2023 12:12:04 Date Recorded Body height Provider Name an d Address Organization Details Last Updated DateTime 12/02/2023 152.4 cm Michelle Calabrese [facility] 12/02/2023 12:33:18 Social History Question Answer Notes LastModified by Organizat ion Details LastModified Time Tobacco Smoking Status Former Smoker amari Patel brendan, [facility] 04/01/2023 13:38:12 What Was The Date Of Your Most Recent Tobacco Screening? 12/02/2023 [email or web address] Information not available 12/02/2023 How Many Years Have You Smoked Tobacco? 15 [email or web address] Information not available 04/01/2023 Sex: Unknown Functional Status None recorded. Mental Status None recorded. Family History Nothing Reported. Medical History Condition Response Diabetes N Varicose Veins N Anxiety Disorder N Anticoagulation therapy N Coronary Artery Disease N Bleeding Disorder N Hyperlipidemia N Cancer N Stroke N COPD N Asthma N Pacemaker N Clotting Disorder N Anemia N Neurologic Disorder N Hepatitis N Genitourinary Disease N Gastrointestinal Disease N Ulcers N Heart Disease N Pulmonary Embolism N Deep Vein Thrombosis N Hypertension Y Kidney Disease N Gynecological HistoryNo gynecological history recorded. Obstetrics History GPAL:G 0 P 0 0 0 0 Past Encounters Encounter ID Performer Location Encounter Start Date Encounter Closed Date Diagnosis/Indication Diagnosis SNOMED-CT Code Diagnosis ICD10 Code Diagnosis Note [id number] Mamadou Albert MD [facility] [place] [facility] [address] [facility] [place] [address] [place] [address] 04/01/2023 13:12:24 04/01/2023 15:31:19 Intermittent claudication of bilateral lower limbs co-occurrent and due to atherosclerosis 8127949112 4638442 I70.213 Ex-smoker 3249199 Z87.89 1 Edema of l ower extremity 746869903 R60.0 [id number] Mamadou Albert MD [facility] [place] [facility] [address] [facility] [address] [place] [address] 05/13/2023 11:52:31 05/13/2023 14:39:48 Intermittent claudication of bilateral lower limbs co-occurrent and due to atherosclerosis 5162417188 3835559 I70.213 Edema of l ower extremity 359010896 R60.0 Ex-smoker 5437866 Z87.89 1 [id number] Mamaduo Albert MD [facility] [address] [place] [address] 05/13/2023 11:56:53 05/16/2023 14:58:59 Intermittent claudication of bilateral lower limbs co-occurrent and due to atherosclerosis 2670948796 5385475 I70.213 Edema of l ower extremity 221276487 R60.0 [id number] Mamadou Albert MD [facility] [place] [facility] [address] [facility] [place] [address] 12/02/2023 12:03:21 12/03/2023 12:36:00 Intermittent claudication of bilateral lower limbs co-occurrent and due to atherosclerosis 7291208579 7433202 I70.213 Edema of l ower extremity 237617472 R60.0 Health Concerns Section Related Observation LastModified by Organization Detai ls LastModified Time None Recorded Concern Status LastModified by Organization Details LastModified Time None Recorded Advance Directives Directive None Recorded Payers Encounter Date Sequence Insurance Name Policy Number Policy Gillis Covered Member ID Gillis Member ID Guarantor Name 04/01/2023 1 [employer] (MEDICARE REPLACEMENT/ ADVANTAGE - PPO) Milena Mederos [id number] Milena Mederos 05/13/2023 1 [employer] (MEDICARE REPLACEMENT/ ADVANTAGE - PPO) Milena Mederos [id number] Mliena Mederos 05/13/2023 1 [employer] (MEDICARE REPLACEMENT/ ADVANTAGE - PPO) Milena Mederos [id number] Milena Mederos 12/02/2023 1 [employer] (MEDICARE REPLACEMENT/ ADVANTAGE - PPO) Milena Mederos [id number] Milena Mederos Notes Date Note Type Note Provider Name and Address Organization Details Recorded Time 3 text/html OA Arterial Occlusive Disease: Lower ExtremityReported bypatient.Location:[facility]; The right lower extremity is worse. Quality:no pain Severity:moderate Duration:has noted for years Alleviating Factors:elevation Aggravating Factors:walking; standingNotes:She reports having lower extremity ultrasounds performed last year. She states she had 70% narrowing to her right lower extremity and a previous concrete finishing machine operator recommended a procedure once it gets 80% occluded.Varicose Vein or Venous insufficiencyReported bypatient.Location:[facility]; right is worse Quality:legs do not swell equally Associated Symptoms:swelling;heavines s; She reports her legs feel like heavy logs. Severity:no pain Onset:years Context:compression stockings (for how long?) 6 months Alleviating Factors:elevation Aggravating Factors:cannot identify functional status(normal) activities of daily living; (normal) physical disability: affecting ability to work; (normal) exercise habits: exercise inhibited by condition sleep(normal) sleep disturbances: insomnia: difficulty falling asleep: [place] [address] [employer], [address], [address], [employer] [facility] 04/01/2023 15:14:21 3 text/html 87 year old female presenting for lower extremity arterial and venous ultrasound. She complains of having heaviness to the bilateral lower extremities after laying in bed for a couple of hours. After she ambulates a few steps the heaviness resolves. Her primary concern is the lower extremity edema. She denies pain to the bilateral lower extremities at rest and [place] [address] [address] [facility], [address] [address], [place], [address], [employer] [facility] and 05/13/2023 14:28:21 4 text/html 87 year old female with history of peripheral arterial disease and chronic venous insufficiency presenting for follow up. She denies pain to the lower extremities but complains of lower extremity edema [place] [address] [address], [address] [address], [place], [address], [employer] [employer] [facility] and 12/02/2023 23:13:06 OBGyn Episode No OBEpisode recorded.
--- OUTSIDE RECORDS SUMMARY | 2024-10-21 06:44 | XMS_ITS | Data Portability ---
Author Organization [facility], Main Office Address [address] [place] [address] Assessment Encounter Date Assessment Date Assessment LastModified by Organization Details LastModified Time 09/15/2023 09/15/2023 pt to soak toe and RTC for total nail as needed. to apply antibiotic cream to the border, tib. Lt hallux. [email or web address] Not available 09/16/2023 10:52:33 Plan of Treatment Reminders Order Date Submit Date Provider Last Modified By Organization Details Last Modified Time Details Appointments None record ed. Lab None record ed. Referral None record ed. Procedures None record ed. Surgeries None record ed. Imaging None record ed. Medication Orders None record ed. Patient TargetsNo targets recorded. Patient InstructionsNo instructions recorded. Reason for Referral None Reported. Procedures Surgical History Date Name Laterality Status Provider Name and Address Organization Details Recorded Time 4 Incision & Drainage Procedure completed Prabhu Herrera DPM [address], [address], [facility] 09/16/2023 10:52:01 Imaging Results None recorded. Procedure Notes None recorded. Medical Equipment None Reported. Allergies No known drug allergies Vitals Date Recorded Body height Body mass index (BMI) Body weight Oxygen saturation Oxygen saturation in Arterial blood by Pulse oximetry Body temperature Heart rate Systolic blood pressure Diastolic blood pressure Provider Name and Address Organization Details Last Updated DateTime 4 152.4 cm 27.3 kg/m2 03774.9 3 g 98 % 98 % 97.9 [degF] 74 /min 157 mm[Hg] 84 mm[Hg] AMBER Pandey [facility] 4 16:39:58 Social History Question Answer Notes LastModified by Organizat ion Details LastModified Time Tobacco Smoking Status Former Smoker Amandeep Badillo, AMBER null, [place] - [employer] 09/15/2023 16:42:03 What Is Your Level Of Caffeine Consumption? Moderate [email or web address] Information not available 09/15/2023 What Was The Date Of Your Most Recent Tobacco Screening? 09/15/2023 [email or web address] Information not available 09/15/2023 Sex: Unknown Functional Status Question Answer Note LastModified by Organizat ion Details LastModified Time Do you use any illicit or recreational drugs? No [email or web address] Information not available 09/15/2023 What is your level of alcohol consumption? Occasional [email or web address] Information not available 09/15/2023 Mental Status None recorded. Family History Nothing Reported. Medical History No medical history recorded. Gynecological HistoryNo gynecological history recorded. Obstetrics History GPAL:G 0 P 0 0 0 0 Past Encounters Encounter ID Performer Location Encounter Start Date Encounter Closed Date Diagnosis/Indication Diagnosis SNOMED-CT Code Diagnosis ICD10 Code Diagnosis Note [id number] Prabhu Herrera DPM [facility] [place] [address] [facility], [address] [place] [address] 09/15/2023 15:56:32 01/11/2024 16:41:08 Health Concerns Section Related Observation LastModified by Organization Detai ls LastModified Time None Recorded Concern Status LastModified by Organization Details LastModified Time None Recorded Advance Directives Directive None Recorded Payers Encounter Date Sequence Insurance Name Policy Number Policy Gillis Covered Member ID Gillis Member ID Guarantor Name 09/15/2023 1 [employer] (MEDICARE REPLACEMENT/ ADVANTAGE - PPO) [id number] Milena Mederos [id number] Milena Mederos Notes Date Note Type Note Provider Name and Address Organization Details Recorded Time 09/15/2023 text/html Ingrown, thick, discolored nails. Worst is the Lt great toe which is red and swollen on the outside border. Prabhu Herrera DPM [address] [facility], [address], [place], [address], [employer] 09/16/2023 10:52:40 OBGyn Episode No OBEpisode recorded.
--- OUTSIDE RECORDS SUMMARY | 2024-10-21 06:44 | XMS_ITS | Clinical Summary ---
Author Organization [facility] Address [address] [place] [address] Phone Care Team Providers Care Fruit Or Nut Picker Name Role Phone Provider, None Primary Care [...] complete this topic Insurance MEDICARE C [employer] Care Teams Fruit Or Nut Picker Relationship Specialty Start Date End Date Provider, None [place] PCP - General 09/07/22
--- NOTE | 2024-10-21 06:54 | ED.ABDPAIN ---
HPI - Abdominal Pain General Chief Complaint: Abdominal Pain <Karen Lucio MD - Last Filed: 10/21/24 07:03> Stated Complaint: n/v abd pain <Karen Lucio MD - Last Filed: 10/21/24 07:03> Time Seen by Provider: 10/21/24 06:22 <Karen Lucio MD - Last Filed: 10/21/24 07:03> History of Present Illness HPI narrative: Patient presenting here with nausea, vomiting, epigastric abdominal pain, has ongoing for 3 days, is followed by GI, and was diagnosed with stomach ulcer/gastritis, H pylori, had taken 1 round of antibiotics without effect and had just been started on a 2nd round of antibiotics. <Karen Lucio MD - Last Filed: 10/21/24 07:03> Related Data Allergies/Adverse Reactions: Allergies Allergy/AdvReac Type Severity Reaction Status Date / Time No Known Allergies Allergy Verified 10/21/24 06:15 <Karen Lucio MD - Last Filed: 10/21/24 07:03> Review of Systems Review of Systems: All systems reviewed & are unremarkable except as noted in HPI and below <Karen Lucio MD - Last Filed: 10/21/24 07:03> PMFSH Past Medical History Medical History: Medical History (Updated 10/21/24 @ 07:33 by Annette Heller MD) Helicobacter positive gastritis Postmenopausal HTN (hypertension) HLD (hyperlipidemia) <Karen Lucio MD - Last Filed: 10/21/24 07:03> Surgical History Surgical History: Surgical History History of cholecystectomy <Karen Lucio MD - Last Filed: 10/21/24 07:03> Family History Family History: Family History Mother Breast cancer <Karen Lucio MD - Last Filed: 10/21/24 07:03> Social History Social History: Social History Smoking status: Former smoker Tobacco type: cigarettes Alcohol intake: current Drinks per week: 1 Alcohol use details: social Substance use: never Last use: 1993 Current Housing: Decline to Answer Concerned About Future Housing: Decline to Answer Difficulty Paying Gas/Electric Bills: Decline to Answer Difficulty Paying for Meds: Decline to Answer Currently Unemployed: Decline to Answer Education: Decline to Answer Difficulty w/ Childcare or Family Care: Decline to Answer Living arrangements: alone Occupation/Education: retired Gender identity (if verbalized by the patient): Female Spiritual care concerns: No <Karen Lucio MD - Last Filed: 10/21/24 07:03> Exam Narrative: EXAMINATION OF ORGAN SYSTEMS/BODY AREAS: Constitutional: Vital signs per nursing GENERAL:[No acute distress, non-toxic appearing.] HEAD: Normal with no signs of head trauma. EYES: EOMI, conjunctiva normal ENT: Hearing grossly intact LUNGS: Nonlabored breathing. HEART: [Regular rate and rhythm] ABD: [Soft], non peritonitic, some tenderness to epigastric abdomen EXT: Normal range of motion SKIN: [No rashes or lesions.] NEURO: [Alert and oriented x 3. No gross focal sensory or strength deficits.] PSYCH: Normal affect <Karen Lucio MD - Last Filed: 10/21/24 07:03> Course Course Emergency Course: Patient signed out to me pending CT scan. Her potassium was notably low. IV repletion has been ordered. P.o. repletion also ordered initially but cancelled after findings of CT scan as below. Magnesium lab is ordered to evaluate for concommittent hypomagnesemia. She has hyperglycemia without anion gap acidosis. Sodium remains WNL even with this correction. LFTs slightly elevated but normal lipase and history of marilyn per review of EMR. CT scan concerning for small bowel obstruction. Lactic acid was ordered. For her new onset atrial fibrillation, although rate controlled, TSH is ordered. Patient confirms that the marilyn is her only abdominal surgery. Upon my bedside assessment, her abdomen remained main soft and nontender. Not peritoneal. She denies being nauseated right now. Her last oral intake was dinner. She is not on anticoagulation. Discussed findings with her grandchild and patient and next steps in management. Discussed with Dr Miner who requests a large-bore (18 [place] if possible) NGT be inserted; will be on consult but requests admission to medicine given other issues. Patient notes that her nausea vomiting and pain her all well controlled at this time. We did discuss code status with family beds diet and she confirms in the event of cardiopulmonary arrest she would not want resuscitation in the form of chest compressions and or intubation. Discussed patient with Dr. Tong, change control coordinator hospitalist who is aware she is still pending the following to result: UA, magnesium, lactic, and TSH. Will be med/surg with telemetry, the latter for electrolyte abnormalities. <Annette Heller MD - Last Filed: 10/21/24 08:05> Vital Signs Vital signs: Vital Signs Temperature 97.7 F 10/21/24 06:10 Pulse Rate 88 10/21/24 06:10 Respiratory Rate 20 10/21/24 06:10 Blood Pressure 182/88 H 10/21/24 06:10 Pulse Oximetry 100 10/21/24 06:10 Oxygen Delivery Room Air 10/21/24 06:10 Temperature 97.7 F 10/21/24 06:10 Pulse Rate 96 10/21/24 08:00 Respiratory Rate 27 H 10/21/24 08:00 Blood Pressure 139/80 10/21/24 08:00 Pulse Oximetry 98 10/21/24 08:00 Oxygen Delivery Room Air 10/21/24 06:10 <Karen Lucio MD - Last Filed: 10/21/24 07:03> Vital Signs Temperature 97.7 F 10/21/24 06:10 Pulse Rate 88 10/21/24 06:10 Respiratory Rate 20 10/21/24 06:10 Blood Pressure 182/88 H 10/21/24 06:10 Pulse Oximetry 100 10/21/24 06:10 Oxygen Delivery Room Air 10/21/24 06:10 Temperature 97.7 F 10/21/24 06:10 Pulse Rate 96 10/21/24 08:00 Respiratory Rate 27 H 10/21/24 08:00 Blood Pressure 139/80 10/21/24 08:00 Pulse Oximetry 98 10/21/24 08:00 Oxygen Delivery Room Air 10/21/24 06:10 <Annette Heller MD - Last Filed: 10/21/24 08:05> MDM - Abdominal Pain MDM Narrative Medical decision making narrative: Electronic medical record was reviewed. Recently seen by Dr Sanchez GI Patient presented to the ED with complaint of [abdominal pain and vomiting]. Vitals [were within acceptable limits]. Physical exam revealed [tenderness to palpation in epigastric abdomen but abdomen overall is soft without guarding]. Based on the patient's history and physical exam, my differential includes but is not limited to [gastritis, gastroenteritis, cholecystitis, pancreatitis, perforated ulcer]. EKG on my independent interpretation shows atrial fibrillation rate 94, QRS 104, QTC 459, normal axis, no significant ST elevations or depressions no signs of acute ischemia; however discussed with patient's family and patient and they are not aware of any prior diagnosis of atrial fibrillation so I do feel that this also needs to be addressed. [IV access was established by nursing staff. Patient was given zofran, Protonix, morphine, fluids]. I did also obtain CT. She does have leukocytosis. Potassium is low at 2.7 and will be repeated. Slightly elevated LFTs. Patient will be signed out to oncoming ER physician. <Karen Lucio MD - Last Filed: 10/21/24 07:03> Lab Data Result diagrams: 10/21/24 06:18 10/21/24 06:18 <Karen Lucio MD - Last Filed: 10/21/24 07:03> Labs: Lab Results 10/21/24 10/21/24 Range/Units 06:18 07:44 WBC 16.2 H (4.5-10.0) K/mm3 RBC 4.51 (4.2-5.4) M/mm3 Hgb 13.0 (12.0-15.0) g/dL Hct 41.3 (37.0-47.0) % MCV 91.6 (80-100) fl MCH 28.8 (26-34) pg MCHC 31.5 L (32-36) g/dl RDW 14.5 (11.5-14.5) % Plt Count 257 (150-375) k/mm3 MPV 11.4 H (7.4-10.4) fl Immature Gran % (Auto) 0.3 (0-0.5) % Neut % (Auto) 88.6 H (45.5-73.1) % Lymph % (Auto) 5.5 L (18.3-44.2) % [place] % (Auto) 5.2 (2.6-8.5) % Eos % (Auto) 0.0 (0-4.4) % Baso % (Auto) 0.4 (0.2-1.2) % Lymph # (Auto) 0.90 (0.9-3.2) K/mm3 [place] # (Auto) 0.8 H (0.1-0.6) K/mm3 Eos # (Auto) 0.0 (0-0.3) K/mm3 Baso # (Auto) 0.1 (0.0-0.1) K/mm3 Abs Immat Gran (auto) 0.05 H (0.00-0.031) K/mm3 Absolute Neuts (auto) 14.4 H (1.3-6.7) K/mm3 Absolute Nucleated RBC 0.000 (0.0-0.012) K/mm3 Nucleated RBC % 0.0 (0.0-0.2) % Sodium 141 (137-145) mmol/L Potassium 2.7 L* (3.4-5.0) mmol/L Chloride 103 (98-107) mmol/L Carbon Dioxide 29 (22-30) mmol/L Anion Gap 9 (4-12) mmol/L BUN 21 H (7-17) mg/dL Creatinine 0.73 (0.7-1.0) mg/dL Estim Creat Clear Calc 41 ml/min Estimated GFR > 60 (59 - ) Glucose 265 H (65-110) mg/dL Calcium 10.1 (8.4-10.2) mg/dL Magnesium 2.0 (1.6-2.3) mg/dL Total Bilirubin 1.3 (0.2-1.3) mg/dL AST 40 H (14-36) U/L ALT 43 H (6-35) U/L Alkaline Phosphatase 99 (38-126) U/L Total Protein 7.0 (6.3-8.2) g/dL Albumin 4.3 (3.5-5.1) g/dL Lipase 96 (23-300) U/L TSH Pending Urine Color Pending Urine Appearance Pending Urine pH Pending Ur Specific [place] Pending Urine Protein Pending Urine Glucose (UA) Pending Urine Ketones Pending Ur Blood (Man) Pending Urine Nitrate Pending Urine Bilirubin Pending Urine Urobilinogen Pending Leukocyte Esterase Rfl Pending <Karen Lucio MD - Last Filed: 10/21/24 07:03> Lab Results 10/21/24 10/21/24 Range/Units 06:18 07:44 WBC 16.2 H (4.5-10.0) K/mm3 RBC 4.51 (4.2-5.4) M/mm3 Hgb 13.0 (12.0-15.0) g/dL Hct 41.3 (37.0-47.0) % MCV 91.6 (80-100) fl MCH 28.8 (26-34) pg MCHC 31.5 L (32-36) g/dl RDW 14.5 (11.5-14.5) % Plt Count 257 (150-375) k/mm3 MPV 11.4 H (7.4-10.4) fl Immature Gran % (Auto) 0.3 (0-0.5) % Neut % (Auto) 88.6 H (45.5-73.1) % Lymph % (Auto) 5.5 L (18.3-44.2) % [place] % (Auto) 5.2 (2.6-8.5) % Eos % (Auto) 0.0 (0-4.4) % Baso % (Auto) 0.4 (0.2-1.2) % Lymph # (Auto) 0.90 (0.9-3.2) K/mm3 [place] # (Auto) 0.8 H (0.1-0.6) K/mm3 Eos # (Auto) 0.0 (0-0.3) K/mm3 Baso # (Auto) 0.1 (0.0-0.1) K/mm3 Abs Immat Gran (auto) 0.05 H (0.00-0.031) K/mm3 Absolute Neuts (auto) 14.4 H (1.3-6.7) K/mm3 Absolute Nucleated RBC 0.000 (0.0-0.012) K/mm3 Nucleated RBC % 0.0 (0.0-0.2) % Sodium 141 (137-145) mmol/L Potassium 2.7 L* (3.4-5.0) mmol/L Chloride 103 (98-107) mmol/L Carbon Dioxide 29 (22-30) mmol/L Anion Gap 9 (4-12) mmol/L BUN 21 H (7-17) mg/dL Creatinine 0.73 (0.7-1.0) mg/dL Estim Creat Clear Calc 41 ml/min Estimated GFR > 60 (59 - ) Glucose 265 H (65-110) mg/dL Calcium 10.1 (8.4-10.2) mg/dL Magnesium 2.0 (1.6-2.3) mg/dL Total Bilirubin 1.3 (0.2-1.3) mg/dL AST 40 H (14-36) U/L ALT 43 H (6-35) U/L Alkaline Phosphatase 99 (38-126) U/L Total Protein 7.0 (6.3-8.2) g/dL Albumin 4.3 (3.5-5.1) g/dL Lipase 96 (23-300) U/L TSH Pending Urine Color Pending Urine Appearance Pending Urine pH Pending Ur Specific [place] Pending Urine Protein Pending Urine Glucose (UA) Pending Urine Ketones Pending Ur Blood (Man) Pending Urine Nitrate Pending Urine Bilirubin Pending Urine Urobilinogen Pending Leukocyte Esterase Rfl Pending <Annette Heller MD - Last Filed: 10/21/24 08:05> Imaging Data Radiologist's impression: ITS Impressions Abdomen/Pelvis CT 10/21/24 07:26 Impression: Small bowel obstruction, as detailed above. Associated small amount of ascites and mesenteric edema. <Karen Lucio MD - Last Filed: 10/21/24 07:03> ITS Impressions Abdomen/Pelvis CT 10/21/24 07:26 Impression: Small bowel obstruction, as detailed above. Associated small amount of ascites and mesenteric edema. <Annette Heller MD - Last Filed: 10/21/24 08:05> Discharge Plan Discharge Clinical Impression: Abdominal pain, epigastric, Nausea and vomiting, Acute hypokalemia, Atrial fibrillation, Leukocytosis, Hyperglycemia, Elevated ALT measurement, Elevated AST (SGOT), Small bowel obstruction <Karen Lucio MD - Last Filed: 10/21/24 07:03> Patient Disposition: Still a Patient <Karen Lucio MD - Last Filed: 10/21/24 07:03> Condition: Stable <Karen Lucio MD - Last Filed: 10/21/24 07:03> Patient Language: Hebrew <Karen Lucio MD - Last Filed: 10/21/24 07:03> Prescriptions: No Action cholecalciferol (vitamin D3) 50 mcg (2,000 unit) capsule 50 mcg PO DAILY Qty: 90 2RF triamcinolone acetonide [Nasacort] 55 mcg aerosol,spray 1 spray intranasal DAILY Qty: 16.9 2RF Rx Instructions: administer into each nostril fluticasone propionate [Flonase Allergy Relief] 50 mcg/actuation spray,suspension 1 spray intranasal BID Qty: 16 0RF Rx Instructions: administer into each nostril potassium chloride 10 mEq tablet extended release 10 meq PO DAILY Qty: 100 2RF magnesium oxide 400 mg (241.3 mg magnesium) tablet 400 mg PO DAILY Qty: 100 2RF atorvastatin 40 mg tablet 40 mg PO DAILY Qty: 100 2RF hydrochlorothiazide 25 mg tablet 25 mg PO DAILY Qty: 90 3RF clonidine HCl 0.2 mg tablet 0.2 mg PO DAILY Qty: 90 2RF alprazolam 0.5 mg tablet 0.5 mg PO BID PRN (Reason: anxiety) Qty: 30 2RF hydralazine 50 mg tablet 50 mg PO BID Qty: 180 0RF Rx Instructions: Last refill, needs appt. tetracycline 500 mg tablet 500 mg PO TID 14 Days Qty: 42 0RF bismuth subsalicylate 262 mg/15 mL suspension 524 mg PO QID 14 Days Qty: 1680 0RF metronidazole 500 mg tablet 500 mg PO Q8H 14 Days Qty: 42 0RF omeprazole 20 mg tablet,delayed release (DR/EC) 20 mg PO BID Qty: 60 3RF <Karen Lucio MD - Last Filed: 10/21/24 07:03> Follow-up/Referrals: PHYSICIAN,LABEL REWINDER [Primary Care Provider] - <Karen Lucio MD - Last Filed: 10/21/24 07:03>
[2024-10-21 07:54] LABS: Add Urine Microscopic? NO; Appearance Urine Clear (Clear); Bilirubin Urine Negative (Negative); Blood Urine Negative (Negative); Color Urine Yellow (Yellow); Glucose Urine UA 2+ mg/dL (Negative); Ketones Urine 1+ mg/dL (Negative); Leukocyte Esterase Ur Negative LEU/UL (Negative); Nitrate Urine Negative (Negative); Protein Urine Negative (Negative); Specific Grav Ur 1.023 (1.001-1.035); Urobilinogen Urine 0.2 mg/dL (<2.0); pH Urine 8.5 (5.0-9.0)
[2024-10-21] MEDS: POTASSIUM CHLORIDE INJ 40 MEQ in SODIUM CHLORIDE 0.9% IV 500 ML 130 MEQ IVPB (08:14)
[2024-10-21] MEDS: LACTATED RINGERS 1,000 ML 999 ML IV CONT (08:15)
[2024-10-21 08:22] LABS: Lactic Acid Reflex 3.3 mmol/L (0.7-2.0)
[2024-10-21] MEDS: BENZOCAINE/TETRACAINE SPRAY (*SP) 56 ML AEROSOL 1 SPRAY (08:49)
--- NOTE | 2024-10-21 09:00 | ADMGEN ---
This patient, Milena Mederos, was admitted to 2 Medical Room 242-. Patient/family oriented to hospital policies and general routines including ID bracelet, bed and alarms, visiting hours, pain management, procedures, bathroom and other care routines, personal items, smoking policy, room service/diet, and visiting hours. Information on how to activate the Rapid Response Team has been discussed. Patient/Family are encouraged to report perceived risks to care and to ask questions if they do not understand what they are told or what they should do.
[2024-10-21 10:06] LABS: Reflex Lactic Acid Yes or No Add Lactic
--- NOTE | 2024-10-21 10:41 | PM.IMHP ---
H&P: HPI History of Present Illness Date/Time: 10/21/24 10:41 Chief Complaint: Abd pain Narrative: 88 yo female past medical history of hyperlipidemia, hypertension, CHF presented to ER on account of abdominal pain. Patient is a poor historian she stated that she used having abdominal pain at above 11:00 p.m. last night upper abdominal region, associated with vomiting. Denies any chest pain, no shortness of breath, no dysuria, no diarrhea no focal symptoms. ER evaluation notable for blood pressure 182/88, labs WBC 16.2, potassium 2.7, lactic acid 3.3, UA are unremarkable. EKG showed atrial fibrillation with rate of 94. CT abdomen showed a small-bowel obstruction associated with ascites and mesenteric edema. Surgery was consulted patient had NG tube placed prior to admission. Review of Systems Review of Systems: Other systems are reviewed and negative except as noted in the history above. [facility] Past Medical History Medical History (Updated 10/21/24 @ 07:33 by Annette Heller MD) Helicobacter positive gastritis Postmenopausal HTN (hypertension) HLD (hyperlipidemia) Surgical History Surgical History History of cholecystectomy Family History Family History Mother Breast cancer Social History Social History Smoking status: Former smoker Tobacco type: cigarettes Alcohol intake: current Drinks per week: 1 Alcohol use details: social Substance use: never Last use: 1993 Current Housing: Decline to Answer Concerned About Future Housing: Decline to Answer Difficulty Paying Gas/Electric Bills: Decline to Answer Difficulty Paying for Meds: Decline to Answer Currently Unemployed: Decline to Answer Education: Decline to Answer Difficulty w/ Childcare or Family Care: Decline to Answer Living arrangements: alone Occupation/Education: retired Gender identity (if verbalized by the patient): Female Spiritual care concerns: No Meds Home Medications and Allergies Home Medications ?Medication ?Instructions ?Recorded ?Confirmed ?Type atorvastatin 40 mg tablet 40 mg PO DAILY #100 tabs 06/29/23 10/21/24 Rx hydrochlorothiazide 25 mg tablet 25 mg PO DAILY #90 tabs 01/11/24 10/21/24 Rx hydralazine 50 mg tablet 50 mg PO BID #180 tabs 10/09/24 05/18/25 Rx Allergies Allergy/AdvReac Type Severity Reaction Status Date / Time No Known Allergies Allergy Verified 10/21/24 06:15 Vital Signs Vital Signs - 24 hr 10/21/24 06:10 10/21/24 06:31 10/21/24 06:47 Temperature 97.7 F Pulse Rate 88 100 92 Respiratory Rate 20 16 21 H Blood Pressure 182/88 H 130/83 121/99 H Pulse Oximetry 100 99 Oxygen Delivery Room Air 10/21/24 07:04 10/21/24 07:05 10/21/24 07:15 Temperature Pulse Rate 85 87 89 Respiratory Rate 12 21 H 13 Blood Pressure 161/65 H Pulse Oximetry 70 L 94 100 Oxygen Delivery 10/21/24 07:16 10/21/24 07:30 10/21/24 07:31 Temperature Pulse Rate 80 101 H 97 Respiratory Rate 15 15 18 Blood Pressure 145/58 H 144/59 H Pulse Oximetry 99 100 100 Oxygen Delivery 10/21/24 07:45 10/21/24 07:59 10/21/24 08:00 Temperature Pulse Rate 117 H 97 96 Respiratory Rate 23 H 18 27 H Blood Pressure 139/80 139/80 Pulse Oximetry 99 98 98 Oxygen Delivery 10/21/24 08:00 10/21/24 08:01 10/21/24 08:15 Temperature Pulse Rate 96 96 91 Respiratory Rate 22 H 13 13 Blood Pressure 148/71 H Pulse Oximetry 97 97 100 Oxygen Delivery 10/21/24 08:16 10/21/24 08:31 10/21/24 08:32 Temperature Pulse Rate 89 86 91 Respiratory Rate 17 24 H 17 Blood Pressure 162/76 H 171/85 H Pulse Oximetry 99 100 100 Oxygen Delivery 10/21/24 08:45 10/21/24 08:47 10/21/24 08:51 Temperature Pulse Rate 83 87 81 Respiratory Rate 20 17 18 Blood Pressure 165/70 H 165/70 H Pulse Oximetry 99 98 98 Oxygen Delivery Exam Narrative: General: alert and comfortable Eyes: EOMI, PERRLA ENNT External ears normal, Neck is supple, no masses, Respiratory systems: Clear to auscultation Cardiovascular irregular rhythm , no murmur, rub, or gallop; no thrill or palpable murmurs on palpation. Gastrointestinal: soft, non-tender, and non-distended abdomen with no masses; BS present Skin: no rash, lesions, ulcerations, subcutaneous nodules or induration Musculoskeletal: no abnormality and no tenderness, normal ROM Neurologic: Alert and oriented x3, non focal Mental Status Exam: normal affect H&P: Results Labs Labs: Short CBC 10/21/24 Range/Units 06:18 WBC 16.2 H (4.5-10.0) K/mm3 Hgb 13.0 (12.0-15.0) g/dL Hct 41.3 (37.0-47.0) % Plt Count 257 (150-375) k/mm3 BMP 10/21/24 06:18 Sodium 141 Potassium 2.7 L* Chloride 103 Carbon Dioxide 29 BUN 21 H Creatinine 0.73 Glucose 265 H Calcium 10.1 Liver Function 10/21/24 Range/Units 06:18 Total Bilirubin 1.3 (0.2-1.3) mg/dL AST 40 H (14-36) U/L ALT 43 H (6-35) U/L Alkaline Phosphatase 99 (38-126) U/L Albumin 4.3 (3.5-5.1) g/dL Urine 10/21/24 Range/Units 07:44 Urine Color Yellow (Yellow) Urine Appearance Clear (Clear) Urine pH 8.5 (5.0-9.0) Ur Specific [place] 1.023 (1.001-1.035) Urine Protein Negative (Negative) mg/dL Urine Glucose (UA) 2+ H (Negative) mg/dL Assessment and Plan Assessment and plan (1) Atrial fibrillation: Code(s): I48.91 - Unspecified atrial fibrillation Status: Acute (2) Small bowel obstruction: Code(s): K56.609 - Unspecified intestinal obstruction, unspecified as to partial versus complete obstruction Status: Acute Plan SBO presented with Abd pain and vomiting CTAP showed SBO with mesenteric edema NPO, NG tube in place Gen surgery following New onset Afib EKG showed afib no history of Aifb ECHO ordered Cardiology consulted patient has not yet made up her mind about anticoagulation HTN on PRN hydralazine as patient is NPO HLD continue Statin CHF titrate home meds with clinical course ECHO as above DVT prophylaxis on Sq Lovenox, pending patient's decision about full anticoagulation for stroke prevention Hospitalist [facility] Advance Care Plan I have confirmed that the patient's Advanced Care Plan is present, code status is documented, or surrogate decision maker is listed in patient medical record.: Yes Medication Reconciliation I have utilized all available resources to obtain, update and review the patients current medications (includes all prescriptions, OTC, herbals, cannabis, and nutritional supplements).: Yes
--- NOTE | 2024-10-21 13:48 | PM.CNGS ---
Assessment and Plan Assessment and plan (1) Small bowel obstruction: Code(s): K56.609 - Unspecified intestinal obstruction, unspecified as to partial versus complete obstruction Status: Acute Assessment and Plan: Explained to patient and her daughter exactly what a small-bowel obstruction in tails. Explained that it is often due to an adhesion causing a twist or abrupt angulation of the small intestine such that none of the bowel content can progress beyond this area. Her abdominal pain is gone even before treatment when she arrived in the emergency room. I agree with the present treatment of bowel rest, IV fluid resuscitation, potassium supplementation, and nasogastric suction. I explained that usually small-bowel obstructions due resolve without surgery. Unfortunately, sometimes surgery is necessary to correct the obstruction. Plan to follow serial labs and x-rays, serial exam. Hopefully will resolve without operation. (2) Abdominal pain, epigastric: Code(s): R10.13 - Epigastric pain Status: Acute Assessment and Plan: Progressively more severe last night and early this morning. Stopped when she got to the emergency room (3) Nausea and vomiting: Code(s): R11.2 - Nausea with vomiting, unspecified Status: Acute Assessment and Plan: No further episodes since came to the emergency room. (4) Acute hypokalemia: Code(s): E87.6 - Hypokalemia Status: Acute Assessment and Plan: Being supplemented (5) H/O total hysterectomy: Code(s): Z90.710 - Acquired absence of both cervix and uterus Status: Chronic Assessment and Plan: Could be a source of adhesions for small-bowel obstruction. (6) Atrial fibrillation: Code(s): I48.91 - Unspecified atrial fibrillation Status: Acute Assessment and Plan: New onset, patient considering anticoagulation. Rate has been in the 90s. (7) Hyperglycemia: Code(s): R73.9 - Hyperglycemia, unspecified Status: Acute Assessment and Plan: Patient not known to be diabetic. Hospitalist to evaluate further. History of Present Illness Consult details Consult date: 10/21/24 Reason for consult: abdominal pain Requesting physician: Annette Heller MD Narrative: Patient is an 88-year-old woman who had some corn bread and Ailyn greens about 5:00 p.m. yesterday evening. She then went up to her room but 30 minutes later experienced any severe pain across the upper abdomen. This was followed by vomiting. Patient briefly felt better but these pains kept recurring. Vomiting kept occurring as well. She tried some baking soda which was not effective. The pains just kept getting worse. Patient came to the emergency room early this morning. Evaluation there included a CT scan of the abdomen pelvis which showed a small-bowel obstruction. Patient has had a previous hysterectomy. 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 She has also had a laparoscopic cholecystectomy and mastectomy. She has never had pain or symptoms such as this. She has never had a bowel obstruction previously. Her last bowel movement was last night when she was having vomiting and pain. Her potassium was noted to be very low at 2.7 and is being supplemented. Her blood sugar was high at 265 [place] [id number]. She is seen now in consultation. She was interviewed and examined with her daughter, Kaylin, present. The patient is not having any abdominal pain at present and tells me that the pain stopped when she came to the emergency room. She was also noted in the emergency room to have new onset of atrial fibrillation but at a controlled rate in the 90s. Review of Systems Review of Systems: All systems reviewed & are unremarkable except as noted in HPI and below (As per HPI) [facility] Past Medical History Medical History (Updated 10/21/24 @ 07:33 by Annette Heller MD) Helicobacter positive gastritis Postmenopausal HTN (hypertension) HLD (hyperlipidemia) Surgical History Surgical History (Updated 10/21/24 @ 14:12 by Genaro Miner MD) History of cholecystectomy Family History Family History Mother Breast cancer Social History Social History Smoking packs per day: 0.5 Smoking cigarettes per day: 10.0 Years smoked: 40 Smoking pack-years: 20.00 Smoking status: Former smoker Tobacco type: cigarettes Second hand tobacco smoke exposure: No Alcohol intake: never Drinks per week: 1 Alcohol use details: social Substance use: never Last use: 1994 Do You Feel Safe in your Home?: Yes Lack of Transportation: No Lack of Food: Never True Current Housing: I Have Housing Concerned About Future Housing: No Difficulty Paying Gas/Electric Bills: No Difficulty Paying for Meds: No Currently Unemployed: No Education: High School Diploma/GED Difficulty w/ Childcare or Family Care: No Living arrangements: alone Occupation/Education: retired Gender identity (if verbalized by the patient): Female Spiritual care concerns: No Meds Home Medications and Allergies Home Medications ?Medication ?Instructions ?Recorded ?Confirmed ?Type atorvastatin 40 mg tablet 40 mg PO DAILY #100 tabs 06/29/23 10/21/24 Rx hydrochlorothiazide 25 mg tablet 25 mg PO DAILY #90 tabs 01/11/24 10/21/24 Rx hydralazine 50 mg tablet 50 mg PO BID #180 tabs 03/14/24 10/21/24 Rx Allergies Allergy/AdvReac Type Severity Reaction Status Date / Time No Known Allergies Allergy Verified 10/21/24 06:15 Vital Signs Vital Signs - 24 hr 10/21/24 06:10 10/21/24 06:31 10/21/24 06:47 Temperature 36.5 C Pulse Rate 88 100 92 Respiratory Rate 20 16 21 H Blood Pressure 182/88 H 130/83 121/99 H Pulse Oximetry 100 99 Oxygen Delivery Room Air 10/21/24 07:04 10/21/24 07:05 10/21/24 07:15 Temperature Pulse Rate 85 87 89 Respiratory Rate 12 21 H 13 Blood Pressure 161/65 H Pulse Oximetry 70 L 94 100 Oxygen Delivery 10/21/24 07:16 10/21/24 07:30 10/21/24 07:31 Temperature Pulse Rate 80 101 H 97 Respiratory Rate 15 15 18 Blood Pressure 145/58 H 144/59 H Pulse Oximetry 99 100 100 Oxygen Delivery 10/21/24 07:45 10/21/24 07:59 10/21/24 08:00 Temperature Pulse Rate 117 H 97 96 Respiratory Rate 23 H 18 27 H Blood Pressure 139/80 139/80 Pulse Oximetry 99 98 98 Oxygen Delivery 10/21/24 08:00 10/21/24 08:01 10/21/24 08:15 Temperature Pulse Rate 96 96 91 Respiratory Rate 22 H 13 13 Blood Pressure 148/71 H Pulse Oximetry 97 97 100 Oxygen Delivery 10/21/24 08:16 10/21/24 08:30 10/21/24 08:31 Temperature Pulse Rate 89 59 L 86 Respiratory Rate 17 24 H Blood Pressure 162/76 H 167/59 H Pulse Oximetry 99 100 100 Oxygen Delivery 10/21/24 08:32 10/21/24 08:45 10/21/24 08:47 Temperature Pulse Rate 91 83 87 Respiratory Rate 17 20 17 Blood Pressure 171/85 H 165/70 H Pulse Oximetry 100 99 98 Oxygen Delivery 10/21/24 08:51 10/21/24 09:00 Temperature Pulse Rate 81 Respiratory Rate 18 Blood Pressure 165/70 H Pulse Oximetry 98 98 Oxygen Delivery Room Air Exam Const: General: cooperative, comfortable, no acute distress, alert and awake Nutritional Appearance: well nourished HENMT: Head: normocephalic and atraumatic Ears: hearing grossly impaired Face/Nose/Sinus: Normal external nose present, Normal nares present and No nasal discharge present Mouth: Yes Normal oral and palatal mucosa present, Yes tongue normal and Yes dry mucous membranes Eyes: Conjunctivae: conjunctivae normal Pupils: Equal, round and reactive pupils present EOM: EOMs intact bilaterally Neck: Neck: normal visual inspection, no lymphadenopathy and nontender Resp: Effort & Inspection: normal respiratory effort Auscultation: clear to auscultation bilaterally Cardio: Rate: tachycardic Rhythm: abnormal rhythm irregularly irregular Heart sounds: no gallops, no murmurs and no rubs GI: Inspection: no abdominal wall ecchymosis, distended, scar (Lower abdominal midline scar) and no visible herniation GI Palp: Yes abdominal tenderness (Mild tenderness lower abdomen), Yes Soft to palpation, No Tenderness to palpation present (GI), No Hepatomegaly present, No Splenomegaly present, No Hernia present and No Palpable mass present Skin: Lesions: no lesions Rashes: no rashes Neuro: General: no focal motor deficits and CN's II-XI intact bilaterally Cranial nerves: Yes Equal, round and reactive pupils present, Yes Bilaterally intact EOM present, Yes facial symmetry and Yes Midline tongue present Speech: normal speech Motor exam (neuro): 5/5 motor strength present throughout and Motor abnormalities not present Extrem: General: no clubbing, cyanosis or edema and edema Psych: Affect: normal affect Thought process: Normal thought process present Insight: Good insight present (Psych) Results Labs 10/21/24 06:18 10/21/24 06:18 Labs: Abnormal lab results 10/21/24 10/21/24 10/21/24 Range/Units 06:18 07:44 07:59 WBC 16.2 H (4.5-10.0) K/mm3 MCHC 31.5 L (32-36) g/dl MPV 11.4 H (7.4-10.4) fl Neut % (Auto) 88.6 H (45.5-73.1) % Lymph % (Auto) 5.5 L (18.3-44.2) % [place] # (Auto) 0.8 H (0.1-0.6) K/mm3 Abs Immat Gran (auto) 0.05 H (0.00-0.031) K/mm3 Absolute Neuts (auto) 14.4 H (1.3-6.7) K/mm3 Potassium 2.7 L* (3.4-5.0) mmol/L BUN 21 H (7-17) mg/dL Glucose 265 H (65-110) mg/dL Lactic Acid 3.3 H (0.7-2.0) mmol/L AST 40 H (14-36) U/L ALT 43 H (6-35) U/L Urine Glucose (UA) 2+ H (Negative) mg/dL Urine Ketones 1+ H (Negative) mg/dL Diabetes panel 10/21/24 Range/Units 06:18 Sodium 141 (137-145) mmol/L Potassium 2.7 L* (3.4-5.0) mmol/L Chloride 103 (98-107) mmol/L Carbon Dioxide 29 (22-30) mmol/L BUN 21 H (7-17) mg/dL Creatinine 0.73 (0.7-1.0) mg/dL Glucose 265 H (65-110) mg/dL Calcium 10.1 (8.4-10.2) mg/dL AST 40 H (14-36) U/L ALT 43 H (6-35) U/L Alkaline Phosphatase 99 (38-126) U/L Total Protein 7.0 (6.3-8.2) g/dL Albumin 4.3 (3.5-5.1) g/dL Thyroid panel 10/21/24 Range/Units 06:18 TSH 2.530 (0.465-4.680) uIU/mL Calcium panel 10/21/24 Range/Units 06:18 Calcium 10.1 (8.4-10.2) mg/dL Albumin 4.3 (3.5-5.1) g/dL Pituitary panel 10/21/24 Range/Units 06:18 Sodium 141 (137-145) mmol/L Potassium 2.7 L* (3.4-5.0) mmol/L Chloride 103 (98-107) mmol/L Carbon Dioxide 29 (22-30) mmol/L BUN 21 H (7-17) mg/dL Creatinine 0.73 (0.7-1.0) mg/dL Glucose 265 H (65-110) mg/dL Calcium 10.1 (8.4-10.2) mg/dL TSH 2.530 (0.465-4.680) uIU/mL Adrenal panel 10/21/24 Range/Units 06:18 Sodium 141 (137-145) mmol/L Potassium 2.7 L* (3.4-5.0) mmol/L Chloride 103 (98-107) mmol/L Carbon Dioxide 29 (22-30) mmol/L BUN 21 H (7-17) mg/dL Creatinine 0.73 (0.7-1.0) mg/dL Glucose 265 H (65-110) mg/dL Calcium 10.1 (8.4-10.2) mg/dL Total Bilirubin 1.3 (0.2-1.3) mg/dL AST 40 H (14-36) U/L ALT 43 H (6-35) U/L Alkaline Phosphatase 99 (38-126) U/L Total Protein 7.0 (6.3-8.2) g/dL Albumin 4.3 (3.5-5.1) g/dL All other labs normal. Imaging Abdominal x-ray: report reviewed and image reviewed (Nasogastric tube in good position, nonspecific bowel gas pattern) Abdomen CT scan report/results: report reviewed and image reviewed (Small-bowel obstruction with decompressed loops of small intestine in the pelvis) CT scan - pelvis: report reviewed and image reviewed
--- NOTE | 2024-10-21 13:52 | P.CONCA_ITS ---
Assessment and Plan Assessment and plan (1) Atrial fibrillation: Code(s): I48.91 - Unspecified atrial fibrillation Status: Acute Assessment and Plan: Newly recognized ordered diagnosed atrial fibrillation. She has a chads Vasc score of 6. This may be related to her small bowel obstruction, marked hypokalemia which is newly recognized. Regardless her heart rate is controlled. 2D echocardiogram with Doppler will be ordered and reviewed. Will check a TSH. Recommend full anticoagulation with Eliquis 2.5 mg p.o. b.i.d.. I did talk about the risks, benefits alternatives and she will likely pursue anticoagulation but wishes to have a conversation with her daughter and granddaughter 1st. Regardless at this point given her small bowel obstruction, will hold off on anticoagulation in case surgery is needed. Continue telemetry but at this point no need for rate-controlling medication. (2) Peripheral vascular disease: Code(s): I73.9 - Peripheral vascular disease, unspecified Status: Acute (3) HLD (hyperlipidemia): Code(s): E78.5 - Hyperlipidemia, unspecified Status: Acute Assessment and Plan: On atorvastatin at home (4) HTN (hypertension): Code(s): I10 - Essential (primary) hypertension Status: Acute Assessment and Plan: On hydralazine and hydrochlorothiazide as an outpatient. Can use IV p.r.n. meds as needed. BP at present is reasonable (5) Small bowel obstruction: Code(s): K56.609 - Unspecified intestinal obstruction, unspecified as to partial versus complete obstruction Status: Acute Assessment and Plan: NG in place and followed by General surgery (6) Acute hypokalemia: Code(s): E87.6 - Hypokalemia Status: Acute Assessment and Plan: As received IV replacement. Given the severity of hypokalemia though will repeat a potassium now. History of Present Illness History of Present Illness Consult date/time: 10/21/24 13:52 Requesting physician: Pal Tong MD Consult reason: atrial fibrillation Reason For Visit: small bowel obstruction, hypoK; new onset rate con Narrative: Reason for consultation: Atrial fibrillation Date of service 10/21/2024 Requesting provider: Dr. Tong History: Patient is an 88-year-old female who has a history of high blood pressure, high cholesterol and she states has been told she has heart failure. She came to the hospital due to nausea, vomiting, epigastric/abdominal pain, has ongoing for 3 days, is followed by GI. She also has gastritis and H pylori infection. She was found to have a small-bowel obstruction. NG is placed. Incidentally found to have atrial fibrillation with controlled ventricular response and Cardiology is consulted for further evaluation. She denies any chest pain, shortness of breath, syncope, presyncope, paroxysmal nocturnal dyspnea, orthopnea, unusual edema or palpitations. She does state that whenever she checks her pulse it will seem erratic. Review of Systems 2 Review of Systems: All systems reviewed & are unremarkable except as noted in HPI and below Constitutional: Constitutional: Denies body ache(s) Eyes: Eyes: Denies blurry vision ENT: Reports Normal hearing present Cardiovascular: Cardiovascular: Denies chest pain Respiratory: Respiratory: Denies chest congestion Gastrointestinal: Gastrointestinal: Reports abdominal pain, Reports nausea and Reports vomiting Genitourinary: Genitourinary: Denies hematuria Musculoskeletal: Musculoskeletal: Denies back pain Integumentary/Breasts: Skin/Breast: Denies pruritus Neurologic: Denies Abnormal speech present Psychiatric: Psychiatric: Denies behavioral changes Endocrine: Endocrine: Denies excessive sweating Hematologic/Lymphatic: Hematologic/Lymphatic: Denies easy bleeding Allergic/Immunologic: Allergic/Immunologic: Denies GI upset with certain foods PMFSH Past Medical History Medical History (Updated 10/21/24 @ 07:33 by Annette Heller MD) Helicobacter positive gastritis Postmenopausal HTN (hypertension) HLD (hyperlipidemia) Surgical History Surgical History History of cholecystectomy Family History Family History Mother Breast cancer Social History Social History Smoking packs per day: 0.5 Smoking cigarettes per day: 10.0 Years smoked: 40 Smoking pack-years: 20.00 Smoking status: Former smoker Tobacco type: cigarettes Second hand tobacco smoke exposure: No Alcohol intake: never Drinks per week: 1 Alcohol use details: social Substance use: never Last use: 1994 Do You Feel Safe in your Home?: Yes Lack of Transportation: No Lack of Food: Never True Current Housing: I Have Housing Concerned About Future Housing: No Difficulty Paying Gas/Electric Bills: No Difficulty Paying for Meds: No Currently Unemployed: No Education: High School Diploma/GED Difficulty w/ Childcare or Family Care: No Living arrangements: alone Occupation/Education: retired Gender identity (if verbalized by the patient): Female Spiritual care concerns: No Meds Home Medications and Allergies Home Medications ?Medication ?Instructions ?Recorded ?Confirmed ?Type atorvastatin 40 mg tablet 40 mg PO DAILY #100 tabs 06/29/23 10/21/24 Rx hydrochlorothiazide 25 mg tablet 25 mg PO DAILY #90 tabs 01/11/24 10/21/24 Rx hydralazine 50 mg tablet 50 mg PO BID #180 tabs 03/14/24 10/21/24 Rx Allergies Allergy/AdvReac Type Severity Reaction Status Date / Time No Known Allergies Allergy Verified 10/21/24 06:15 Vital Signs Vital Signs - 24 hr 10/21/24 06:10 10/21/24 06:31 10/21/24 06:47 Temperature 36.5 C Pulse Rate 88 100 92 Respiratory Rate 20 16 21 H Blood Pressure 182/88 H 130/83 121/99 H Pulse Oximetry 100 99 Oxygen Delivery Room Air 10/21/24 07:04 10/21/24 07:05 10/21/24 07:15 Temperature Pulse Rate 85 87 89 Respiratory Rate 12 21 H 13 Blood Pressure 161/65 H Pulse Oximetry 70 L 94 100 Oxygen Delivery 10/21/24 07:16 10/21/24 07:30 10/21/24 07:31 Temperature Pulse Rate 80 101 H 97 Respiratory Rate 15 15 18 Blood Pressure 145/58 H 144/59 H Pulse Oximetry 99 100 100 Oxygen Delivery 10/21/24 07:45 10/21/24 07:59 10/21/24 08:00 Temperature Pulse Rate 117 H 97 96 Respiratory Rate 23 H 18 27 H Blood Pressure 139/80 139/80 Pulse Oximetry 99 98 98 Oxygen Delivery 10/21/24 08:00 10/21/24 08:01 10/21/24 08:15 Temperature Pulse Rate 96 96 91 Respiratory Rate 22 H 13 13 Blood Pressure 148/71 H Pulse Oximetry 97 97 100 Oxygen Delivery 10/21/24 08:16 10/21/24 08:30 10/21/24 08:31 Temperature Pulse Rate 89 59 L 86 Respiratory Rate 17 24 H Blood Pressure 162/76 H 167/59 H Pulse Oximetry 99 100 100 Oxygen Delivery 10/21/24 08:32 10/21/24 08:45 10/21/24 08:47 Temperature Pulse Rate 91 83 87 Respiratory Rate 17 20 17 Blood Pressure 171/85 H 165/70 H Pulse Oximetry 100 99 98 Oxygen Delivery 10/21/24 08:51 10/21/24 09:00 Temperature Pulse Rate 81 Respiratory Rate 18 Blood Pressure 165/70 H Pulse Oximetry 98 98 Oxygen Delivery Room Air Exam 2 Narrative: Alert oriented appears stated age Const: General: comfortable and no acute distress HENMT: Face/Nose/Sinus: Normal nares present Mouth: Yes moist mucous membranes Eyes: General: appearance normal, both eyes and all related structures S clera: sclerae normal Neck: Neck: supple and no JVD Chest: Other: No reproducible chest wall pain to palpation Resp: Effort & Inspection: normal respiratory effort Auscultation: clear to auscultation bilaterally Cardio: Rate: regular rate Rhythm: abnormal rhythm irregularly irregular GI: Inspection: non-distended Auscultation: abnormal bowel sounds Skin: General skin exam: normal color Neuro: Speech: normal speech Sensory Exam: normal sensation Extrem: General: edema Other: Very mild lower extremity edema bilaterally Psych: Mental Status: mental status grossly normal Affect: normal affect Results Labs and Meds 10/21/24 06:18 10/21/24 06:18 Lab results: Cardiac Enzymes 10/21/24 Range/Units 06:18 AST 40 H (14-36) U/L CBC 10/21/24 Range/Units 06:18 WBC 16.2 H (4.5-10.0) K/mm3 RBC 4.51 (4.2-5.4) M/mm3 Hgb 13.0 (12.0-15.0) g/dL Hct 41.3 (37.0-47.0) % Plt Count 257 (150-375) k/mm3 Lymph # (Auto) 0.90 (0.9-3.2) K/mm3 [place] # (Auto) 0.8 H (0.1-0.6) K/mm3 Eos # (Auto) 0.0 (0-0.3) K/mm3 Baso # (Auto) 0.1 (0.0-0.1) K/mm3 Comprehensive Metabolic Panel 05/18/25 Range/Units 06:18 Sodium 141 (137-145) mmol/L Potassium 2.7 L* (3.4-5.0) mmol/L Chloride 103 (98-107) mmol/L Carbon Dioxide 29 (22-30) mmol/L BUN 21 H (7-17) mg/dL Creatinine 0.73 (0.7-1.0) mg/dL Glucose 265 H (65-110) mg/dL Calcium 10.1 (8.4-10.2) mg/dL AST 40 H (14-36) U/L ALT 43 H (6-35) U/L Alkaline Phosphatase 99 (38-126) U/L Total Protein 7.0 (6.3-8.2) g/dL Albumin 4.3 (3.5-5.1) g/dL Patient Weight 10/21/24 23:59 Weight 61.5 kg EKG is personally reviewed and independently interpreted showing atrial fibrillation with controlled response rate
[2024-10-21 15:21] LABS: Potassium 3.1 mmol/L (3.4-5.0)
[2024-10-21] MEDS: KCL 40 MEQ/D5/0.9% SOD CHL 1,000 ML 100 ML IV CONT (16:37)
[2024-10-21] MEDS: MORPHINE SULFATE (*CRX) 2 MG/ML INJ IV PUSH (21:18)
[2024-10-22] VITALS (14 sets, daily range): BP systolic 156–186; BP diastolic 53–87; PULSE 65–84; RESP 16–18; TEMP 36.6–37.1; O2SAT 94–100
[2024-10-22] MEDS: KCL 40 MEQ/D5/0.9% SOD CHL 1,000 ML 100 ML IV CONT ×3 (04:33→23:12)
[2024-10-22 05:17] LABS: Basophils Absolute Auto 0.1 K/mm3 (0.0-0.1); Basophils Percent Auto 0.6 % (0.2-1.2); Eosinophils Percent Auto 0.4 % (0-4.4); Hematocrit 34.2 % (37.0-47.0); Hemoglobin 10.4 g/dL (12.0-15.0); Immature Granulocyte Absolute 0.03 K/mm3 (0.00-0.031); Immature Granulocyte Percent A 0.3 % (0-0.5); Lymphocytes Absolute Auto 2.18 K/mm3 (0.9-3.2); Lymphocytes Percent Auto 21.6 % (18.3-44.2); Mean Corpuscular HGB Conc 30.4 g/dl (32-36); Mean Corpuscular Hemoglobin 28.7 pg (26-34); Mean Corpuscular Volume 94.5 fl (80-100); Mean Platelet Volume 11.4 fl (7.4-10.4); Neutrophils Absolute Auto 6.8 K/mm3 (1.3-6.7); Neutrophils Percent Auto 67.1 % (45.5-73.1); Platelet Count Result 199 k/mm3 (150-375); Red Blood Count 3.62 M/mm3 (4.2-5.4); Red Cell Distribution Width 14.9 % (11.5-14.5); White Blood Count 10.1 K/mm3 (4.5-10.0)
[2024-10-22 05:37] LABS: Alanine Aminotransferase 23 U/L (6-35); Albumin Level 2.9 g/dL (3.5-5.1); Alkaline Phosphatase 58 U/L (38-126); Anion Gap 5 mmol/L (4-12); Aspartate Amino Transferase 33 U/L (14-36); Blood Urea Nitrogen 13 mg/dL (7-17); Calcium 8.7 mg/dL (8.4-10.2); Carbon Dioxide 26 mmol/L (22-30); Chloride 112 mmol/L (98-107); Estimated CRCL calculation 43 ml/min; Estimated Glomerular Filt Rate > 60; Glucose 143 mg/dL (65-110); Magnesium 1.9 mg/dL (1.6-2.3); Potassium 3.6 mmol/L (3.4-5.0); Sodium 143 mmol/L (137-145)
--- NOTE | 2024-10-22 07:30 | PM.PNGS ---
Progress Note: A&P Assessment and Plan (1) Small bowel obstruction: Code(s): K56.609 - Unspecified intestinal obstruction, unspecified as to partial versus complete obstruction Status: Acute Assessment and Plan: Improving, continue present treatment Subjective Subjective Date/Time Seen: 10/22/24 07:30 Patient reports: still having pain, pain is less, no flatus, no bowel movement and afebrile Review of Systems Review of Systems: All systems reviewed & are unremarkable except as noted in HPI and below (HPI) Exam Const: General: comfortable and no acute distress Orientation/consciousness: patient oriented x3 GI: Inspection: non-distended GI Palp: Yes Soft to palpation, No Tenderness to palpation present (GI) and No Guarding due to palpation present (GI) Auscultation: absent bowel sounds Neuro: General: patient oriented x3 and no focal motor deficits Extrem: General: no calf tenderness and no edema Psych: Affect: normal affect Insight: Good insight present (Psych) Judgement: Good judgement present (Psych) Objective Data Vital Signs Vital Signs: Vital Signs - 24 hr 10/21/24 07:31 10/21/24 07:45 10/21/24 07:59 Temperature Pulse Rate 97 117 H 97 Respiratory Rate 18 23 H 18 Blood Pressure 144/59 H 139/80 Pulse Oximetry 100 99 98 Oxygen Delivery Fraction of Inspired Oxygen 10/21/24 08:00 10/21/24 08:00 10/21/24 08:01 Temperature Pulse Rate 96 96 96 Respiratory Rate 27 H 22 H 13 Blood Pressure 139/80 148/71 H Pulse Oximetry 98 97 97 Oxygen Delivery Fraction of Inspired Oxygen 10/21/24 08:15 10/21/24 08:16 10/21/24 08:30 Temperature Pulse Rate 91 89 59 L Respiratory Rate 13 17 Blood Pressure 162/76 H 167/59 H Pulse Oximetry 100 99 100 Oxygen Delivery Fraction of Inspired Oxygen 10/21/24 08:31 10/21/24 08:32 10/21/24 08:45 Temperature Pulse Rate 86 91 83 Respiratory Rate 24 H 17 20 Blood Pressure 171/85 H Pulse Oximetry 100 100 99 Oxygen Delivery Fraction of Inspired Oxygen 10/21/24 08:47 10/21/24 08:51 10/21/24 09:00 Temperature Pulse Rate 87 81 Respiratory Rate 17 18 Blood Pressure 165/70 H 165/70 H Pulse Oximetry 98 98 98 Oxygen Delivery Room Air Fraction of Inspired Oxygen 10/21/24 12:00 10/21/24 14:00 10/21/24 16:00 Temperature 36.4 C Pulse Rate 83 52 L 89 Respiratory Rate Blood Pressure 135/52 L Pulse Oximetry 97 Oxygen Delivery Fraction of Inspired Oxygen 10/21/24 20:00 10/21/24 20:00 10/21/24 20:12 Temperature 37.0 C Pulse Rate 75 75 Respiratory Rate 18 Blood Pressure 155/82 H Pulse Oximetry 95 Oxygen Delivery Room Air Fraction of Inspired Oxygen 10/21/24 20:33 10/22/24 00:00 10/22/24 04:00 Temperature Pulse Rate 80 74 75 Respiratory Rate 20 Blood Pressure Pulse Oximetry 94 Oxygen Delivery Room Air Fraction of Inspired Oxygen 21 10/22/24 04:53 Temperature 36.6 C Pulse Rate 73 Respiratory Rate 18 Blood Pressure 166/78 H Pulse Oximetry 94 Oxygen Delivery Fraction of Inspired Oxygen Intake/Output Intake/Output: Intake & Output 10/19/24 10/20/24 10/21/24 10/22/24 23:59 23:59 23:59 23:59 Intake Total 0 1000 Output Total 450 Balance 0 550 Meds/Results Medications: Active Medications Generic Name Dose Route Start Last Admin Trade Name Freq PRN Reason Stop Dose Admin Hydralazine HCl 10 mg 10/21/24 10:52 Hydralazine Hcl 20 Mg/Ml Vial IV PUSH Q4H PRN Blood Pressure - High Potassium Chloride/Dextrose/Sod Cl 1,000 mls @ 100 mls/hr 10/21/24 17:00 10/22/24 04:33 Kcl 40 Meq/D5ns IV CONT 100 mls/hr .Q10H LESLEY Administration Morphine Sulfate 2 mg 10/21/24 08:01 10/21/24 21:18 Morphine Sulfate (*Crx) 2 Mg/Ml Inj IV PUSH 2 mg Q2H PRN Administration Pain Rated 7-10 Ondansetron HCl 4 mg 10/21/24 08:01 Ondansetron Inj 4 Mg/2 Ml Vial IV PUSH Q4H PRN Nausea Radiology Results: ITS Impressions Abdomen/Pelvis CT 10/21/24 07:26 Impression: Small bowel obstruction, as detailed above. Associated small amount of ascites and mesenteric edema. Chest X-Ray 10/21/24 11:05 Impression: Clear lungs. Possible COPD. NG tube in place. Labs Labs: Laboratory Results - last 24 hr 10/21/24 10/21/24 10/21/24 06:18 07:44 07:59 WBC RBC Hgb Hct MCV MCH MCHC RDW Plt Count MPV Immature Gran % (Auto) Neut % (Auto) Lymph % (Auto) [place] % (Auto) Eos % (Auto) Baso % (Auto) Lymph # (Auto) [place] # (Auto) Eos # (Auto) Baso # (Auto) Abs Immat Gran (auto) Absolute Neuts (auto) Absolute Nucleated RBC Nucleated RBC % Sodium Potassium Chloride Carbon Dioxide Anion Gap BUN Creatinine Estim Creat Clear Calc Estimated GFR Glucose Lactic Acid 3.3 H Calcium Magnesium 2.0 Total Bilirubin AST ALT Alkaline Phosphatase Total Protein Albumin TSH 2.530 Urine Color Yellow Urine Appearance Clear Urine pH 8.5 Ur Specific [place] 1.023 Urine Protein Negative Urine Glucose (UA) 2+ H Urine Ketones 1+ H Ur Blood (Man) Negative Urine Nitrate Negative Urine Bilirubin Negative Urine Urobilinogen 0.2 Leukocyte Esterase Rfl Negative 10/21/24 10/21/24 10/22/24 10:24 15:08 04:15 WBC 10.1 H RBC 3.62 L Hgb 10.4 L Hct 34.2 L MCV 94.5 MCH 28.7 MCHC 30.4 L RDW 14.9 H Plt Count 199 MPV 11.4 H Immature Gran % (Auto) 0.3 Neut % (Auto) 67.1 Lymph % (Auto) 21.6 [place] % (Auto) 10.0 H Eos % (Auto) 0.4 Baso % (Auto) 0.6 Lymph # (Auto) 2.18 [place] # (Auto) 1.0 H Eos # (Auto) 0.0 Baso # (Auto) 0.1 Abs Immat Gran (auto) 0.03 Absolute Neuts (auto) 6.8 H Absolute Nucleated RBC 0.000 Nucleated RBC % 0.0 Sodium 143 Potassium 3.1 L 3.6 Chloride 112 H Carbon Dioxide 26 Anion Gap 5 BUN 13 D Creatinine 0.63 L Estim Creat Clear Calc 43 Estimated GFR > 60 Glucose 143 H Lactic Acid 2.0 Calcium 8.7 Magnesium 1.9 Total Bilirubin 1.0 AST 33 ALT 23 Alkaline Phosphatase 58 Total Protein 5.0 L Albumin 2.9 L TSH Urine Color Urine Appearance Urine pH Ur Specific [place] Urine Protein Urine Glucose (UA) Urine Ketones Ur Blood (Man) Urine Nitrate Urine Bilirubin Urine Urobilinogen Leukocyte Esterase Rfl Imaging Attestation: I personally reviewed and interpreted this imaging study as follows: (Plain abdominal films from this morning) My impression: NG tube in good position, ileus versus small-bowel obstruction, nonspecific Radiologist's impression: Reading is pending
[2024-10-22] MEDS: ENOXAPARIN 40 MG/0.4 ML SYRINGE SUB-Q (08:19)
[2024-10-22] MEDS: PHENOL/SOD PHENO SPRAY CHERRY (*BKC) 1 SPRAY MUCOUS MEM (09:32)
--- NOTE | 2024-10-22 10:24 | PM.IMPN ---
Progress Note: A&P Assessment and Plan (1) Atrial fibrillation: Code(s): I48.91 - Unspecified atrial fibrillation Status: Acute (2) Small bowel obstruction: Code(s): K56.609 - Unspecified intestinal obstruction, unspecified as to partial versus complete obstruction Status: Acute Plan SBO presented with Abd pain and vomiting CTAP showed SBO with mesenteric edema NPO, NG tube in place XRAy this morning showed patient still obstructed Gen surgery following New onset Afib EKG showed afib no history of Afiib TSH wnl, ECHO pending will start on Eliquis 2.5mg bid once SBO resolved No full AC now as patient may need surgery HTN on PRN hydralazine as patient is NPO HLD continue Statin CHF titrate home meds with clinical course ECHO as above DVT prophylaxis on Sq Lovenox Subjective Date/time seen: 10/22/24 10:24 Interval history: Comfortable at bedside and still on NG tube Xray this morning showed still obstructed Review of Systems Review of Systems: Other systems are reviewed and negative except as noted in the history above. Exam Narrative: General: alert and comfortable Eyes: EOMI, PERRLA ENNT External ears normal, Neck is supple, no masses, Respiratory systems: Clear to auscultation Cardiovascular irregular rhythm , no murmur, rub, or gallop; no thrill or palpable murmurs on palpation. Gastrointestinal: soft, non-tender, and non-distended abdomen with no masses; BS present Skin: no rash, lesions, ulcerations, subcutaneous nodules or induration Musculoskeletal: no abnormality and no tenderness, normal ROM Neurologic: Alert and oriented x3, non focal Mental Status Exam: normal affect Objective Data Vital Signs Vital Signs: Vital Signs - 24 hr 10/21/24 12:00 10/21/24 14:00 10/21/24 16:00 Temperature 97.6 F Pulse Rate 83 52 L 89 Respiratory Rate Blood Pressure 135/52 L Pulse Oximetry 97 Oxygen Delivery Fraction of Inspired Oxygen 10/21/24 20:00 10/21/24 20:00 10/21/24 20:12 Temperature 98.6 F Pulse Rate 75 75 Respiratory Rate 18 Blood Pressure 155/82 H Pulse Oximetry 95 Oxygen Delivery Room Air Fraction of Inspired Oxygen 10/21/24 20:33 10/22/24 00:00 10/22/24 04:00 Temperature Pulse Rate 80 74 75 Respiratory Rate 20 Blood Pressure Pulse Oximetry 94 Oxygen Delivery Room Air Fraction of Inspired Oxygen 21 10/22/24 04:53 10/22/24 07:58 10/22/24 08:00 Temperature 97.8 F Pulse Rate 73 82 Respiratory Rate 18 Blood Pressure 166/78 H Pulse Oximetry 94 94 Oxygen Delivery Room Air Fraction of Inspired Oxygen 10/22/24 08:20 Temperature Pulse Rate Respiratory Rate Blood Pressure 156/65 H Pulse Oximetry Oxygen Delivery Fraction of Inspired Oxygen Intake/Output Intake/Output: Intake & Output 10/19/24 10/20/24 10/21/24 10/22/24 23:59 23:59 23:59 23:59 Intake Total 0 1000 Output Total 450 Balance 0 550 Meds/Results Medications: Active Medications Generic Name Dose Route Start Last Admin Trade Name Freq PRN Reason Stop Dose Admin Enoxaparin Sodium 40 mg 10/22/24 09:00 10/22/24 08:19 Enoxaparin 40 Mg/0.4 Ml Syringe SUB-Q 40 mg DAILY LESLEY Administration Hydralazine HCl 10 mg 10/21/24 10:52 Hydralazine Hcl 20 Mg/Ml Vial IV PUSH Q4H PRN Blood Pressure - High Potassium Chloride/Dextrose/Sod Cl 1,000 mls @ 100 mls/hr 10/21/24 17:00 10/22/24 04:33 Kcl 40 Meq/D5ns IV CONT 100 mls/hr .Q10H LESLEY Administration Morphine Sulfate 2 mg 10/21/24 08:01 10/21/24 21:18 Morphine Sulfate (*Crx) 2 Mg/Ml Inj IV PUSH 2 mg Q2H PRN Administration Pain Rated 7-10 Ondansetron HCl 4 mg 10/21/24 08:01 Ondansetron Inj 4 Mg/2 Ml Vial IV PUSH Q4H PRN Nausea Phenol 1 spray 10/22/24 08:24 10/22/24 09:32 Phenol/Sod Pheno [place] (*Bkc) MUCOUS MEM 1 spray PRN PRN Administration Sore Throat Radiology Results: ITS Impressions Abdomen/Pelvis CT 10/21/24 07:26 Impression: Small bowel obstruction, as detailed above. Associated small amount of ascites and mesenteric edema. Chest X-Ray 10/21/24 11:05 Impression: Clear lungs. Possible COPD. NG tube in place. Abdomen X-Ray 10/22/24 08:56 IMPRESSION: Findings consistent with patient's known small bowel obstruction. Small bowel follow-through with water soluble contrast may provide additional information (and may well be therapeutic), if the patient is clinically able. Labs Labs: Laboratory Results - last 24 hr 10/21/24 10/21/24 10/22/24 10:24 15:08 04:15 WBC 10.1 H RBC 3.62 L Hgb 10.4 L Hct 34.2 L MCV 94.5 MCH 28.7 MCHC 30.4 L RDW 14.9 H Plt Count 199 MPV 11.4 H Immature Gran % (Auto) 0.3 Neut % (Auto) 67.1 Lymph % (Auto) 21.6 [place] % (Auto) 10.0 H Eos % (Auto) 0.4 Baso % (Auto) 0.6 Lymph # (Auto) 2.18 [place] # (Auto) 1.0 H Eos # (Auto) 0.0 Baso # (Auto) 0.1 Abs Immat Gran (auto) 0.03 Absolute Neuts (auto) 6.8 H Absolute Nucleated RBC 0.000 Nucleated RBC % 0.0 Sodium 143 Potassium 3.1 L 3.6 Chloride 112 H Carbon Dioxide 26 Anion Gap 5 BUN 13 D Creatinine 0.63 L Estim Creat Clear Calc 43 Estimated GFR > 60 Glucose 143 H Lactic Acid 2.0 Calcium 8.7 Magnesium 1.9 Total Bilirubin 1.0 AST 33 ALT 23 Alkaline Phosphatase 58 Total Protein 5.0 L Albumin 2.9 L
[2024-10-22] MEDS: MORPHINE SULFATE (*CRX) 2 MG/ML INJ IV PUSH ×4 (14:39→23:12)
[2024-10-22] MEDS: hydrALAZINE HCL 20 MG/ML VIAL 10 MG IV PUSH ×2 (16:01→20:26)
[2024-10-22] MEDS: PANTOPRAZOLE SODIUM IV 40 MG VIAL IV PUSH (19:34)
[2024-10-23] VITALS (10 sets, daily range): BP systolic 150–171; BP diastolic 47–71; PULSE 68–94; RESP 18; TEMP 36.5–37.1; O2SAT 96–100
[2024-10-23 05:21] LABS: Basophils Absolute Auto 0.1 K/mm3 (0.0-0.1); Basophils Percent Auto 0.5 % (0.2-1.2); Eosinophils Absolute Auto 0.1 K/mm3 (0-0.3); Eosinophils Percent Auto 0.6 % (0-4.4); Hematocrit 35.2 % (37.0-47.0); Hemoglobin 10.7 g/dL (12.0-15.0); Immature Granulocyte Absolute 0.03 K/mm3 (0.00-0.031); Immature Granulocyte Percent A 0.3 % (0-0.5); Lymphocytes Absolute Auto 2.23 K/mm3 (0.9-3.2); Lymphocytes Percent Auto 20.5 % (18.3-44.2); Mean Corpuscular HGB Conc 30.4 g/dl (32-36); Mean Corpuscular Hemoglobin 28.9 pg (26-34); Mean Corpuscular Volume 95.1 fl (80-100); Mean Platelet Volume 11.9 fl (7.4-10.4); Monocytes Absolute Auto 1.1 K/mm3 (0.1-0.6); Monocytes Percent Auto 10.4 % (2.6-8.5); Neutrophils Absolute Auto 7.4 K/mm3 (1.3-6.7); Neutrophils Percent Auto 67.7 % (45.5-73.1); Platelet Count Result 189 k/mm3 (150-375); Red Cell Distribution Width 15.1 % (11.5-14.5); White Blood Count 10.9 K/mm3 (4.5-10.0)
[2024-10-23 05:36] LABS: Alanine Aminotransferase 21 U/L (6-35); Albumin Level 2.9 g/dL (3.5-5.1); Alkaline Phosphatase 67 U/L (38-126); Anion Gap 5 mmol/L (4-12); Aspartate Amino Transferase 23 U/L (14-36); Bilirubin,Total 0.9 mg/dL (0.2-1.3); Blood Urea Nitrogen 6 mg/dL (7-17); Calcium 8.6 mg/dL (8.4-10.2); Carbon Dioxide 24 mmol/L (22-30); Chloride 117 mmol/L (98-107); Estimated CRCL calculation 48 ml/min; Estimated Glomerular Filt Rate > 60; Glucose 126 mg/dL (65-110); Magnesium 1.6 mg/dL (1.6-2.3); Potassium 3.9 mmol/L (3.4-5.0); Sodium 146 mmol/L (137-145)
--- NOTE | 2024-10-23 07:55 | PM.IMPN ---
Progress Note: A&P Assessment and Plan (1) Atrial fibrillation: Code(s): I48.91 - Unspecified atrial fibrillation Status: Acute (2) Small bowel obstruction: Code(s): K56.609 - Unspecified intestinal obstruction, unspecified as to partial versus complete obstruction Status: Acute Plan SBO Presented with Abd pain and vomiting CTAP showed SBO with mesenteric edema NPO, NG tube in place XRAy this morning showed patient still obstructed Gen surgery following, per their note 10/23: Large volume per NG yesterday, 950 cc. Patient improving, abdominal pain completely gone this morning. However, films still show small-bowel obstruction and she has not passed any gas or had a bowel movement. Will proceed with water-soluble small bowel series per nasogastric tube today. Continue nasogastric suction and IV fluids for now. -Small bowel series results: 1. Persistent mild dilation of a few loops of small bowel in the mid to left lower quadrant of the abdomen with mildly delayed small bowel transit time of 3 hours consistent with persistent partial small bowel obstruction New onset Afib EKG showed afib No history of Afiib Tele today NSR TSH wnl, ECHO pending - ordered 10/23 Will start on Eliquis 2.5mg bid once SBO resolved -No full AC now as patient may need surgery HTN on PRN hydralazine as patient is NPO HLD continue Statin CHF Titrate home meds with clinical course ECHO as above DVT prophylaxis on Sq Lovenox Subjective Date/time seen: 10/23/24 1330 Interval history: Comfortable at bedside and still on NG tube Xray this morning showed still obstructed Small bowel follow through performed today with gen surg Review of Systems Review of Systems: Other systems are reviewed and negative except as noted in the history above. Exam Narrative: General: alert and comfortable Eyes: EOMI, PERRLA ENNT External ears normal, Neck is supple, no masses, Respiratory systems: Clear to auscultation Cardiovascular irregular rhythm , no murmur, rub, or gallop; no thrill or palpable murmurs on palpation. Gastrointestinal: soft, non-tender, and non-distended abdomen with no masses; BS present Skin: no rash, lesions, ulcerations, subcutaneous nodules or induration Musculoskeletal: no abnormality and no tenderness, normal ROM Neurologic: Alert and oriented x3, non focal Mental Status Exam: normal affect Objective Data Vital Signs Vital Signs: Vital Signs - 24 hr 10/22/24 07:58 10/22/24 08:00 10/22/24 08:20 Temperature Pulse Rate 82 Respiratory Rate Blood Pressure 156/65 H Pulse Oximetry 94 Oxygen Delivery Room Air 10/22/24 12:00 10/22/24 13:39 10/22/24 15:59 Temperature 98.4 F Pulse Rate 71 65 Respiratory Rate 16 Blood Pressure 173/53 H 186/74 H Pulse Oximetry 100 Oxygen Delivery 10/22/24 16:00 10/22/24 16:28 10/22/24 19:57 Temperature 98.7 F Pulse Rate 78 78 Respiratory Rate 18 Blood Pressure 160/87 H 177/85 H Pulse Oximetry 94 Oxygen Delivery 10/22/24 20:00 10/22/24 20:00 10/22/24 23:32 Temperature Pulse Rate 84 Respiratory Rate Blood Pressure Pulse Oximetry 94 Oxygen Delivery Room Air [employer]opap 10/23/24 00:00 10/23/24 04:00 10/23/24 05:09 Temperature 98.8 F Pulse Rate 85 85 79 Respiratory Rate 18 Blood Pressure 159/65 H Pulse Oximetry 96 Oxygen Delivery Intake/Output Intake/Output: Intake & Output 10/20/24 10/21/24 10/22/24 10/23/24 23:59 23:59 23:59 23:59 Intake Total 0 2848.3 0 Output Total 1550 400 Balance 0 1298.3 -400 Meds/Results Medications: Active Medications Generic Name Dose Route Start Last Admin Trade Name Freq PRN Reason Stop Dose Admin Enoxaparin Sodium 40 mg 10/22/24 09:00 10/22/24 08:19 Enoxaparin 40 Mg/0.4 Ml Syringe SUB-Q 40 mg DAILY LESLEY Administration Hydralazine HCl 10 mg 10/21/24 10:52 10/22/24 20:26 Hydralazine Hcl 20 Mg/Ml Vial IV PUSH 10 mg Q4H PRN Administration Blood Pressure - High Potassium Chloride/Dextrose/Sod Cl 1,000 mls @ 100 mls/hr 10/21/24 17:00 10/22/24 23:12 Kcl 40 Meq/D5ns IV CONT 100 mls/hr .Q10H LESLEY Administration Morphine Sulfate 2 mg 10/21/24 08:01 10/22/24 23:12 Morphine Sulfate (*Crx) 2 Mg/Ml Inj IV PUSH 2 mg Q2H PRN Administration Pain Rated 7-10 Ondansetron HCl 4 mg 10/21/24 08:01 Ondansetron Inj 4 Mg/2 Ml Vial IV PUSH Q4H PRN Nausea Pantoprazole Sodium 40 mg 10/23/24 09:00 Pantoprazole Sodium Iv 40 Mg Vial IV PUSH QAM LESLEY Phenol 1 spray 10/22/24 08:24 10/22/24 09:32 Phenol/Sod Pheno [place] Nelson (*Bkc) MUCOUS MEM 1 spray PRN PRN Administration Sore Throat Radiology Results: ITS Impressions Abdomen/Pelvis CT 10/21/24 07:26 Impression: Small bowel obstruction, as detailed above. Associated small amount of ascites and mesenteric edema. Chest X-Ray 10/21/24 11:05 Impression: Clear lungs. Possible COPD. NG tube in place. Abdomen X-Ray 10/23/24 07:25 IMPRESSION: 1. Persistent small bowel obstruction. 2. Mild streaky bibasilar atelectasis versus pneumonia. Labs Labs: Laboratory Results - last 24 hr 10/23/24 04:32 WBC 10.9 H RBC 3.70 L Hgb 10.7 L Hct 35.2 L MCV 95.1 MCH 28.9 MCHC 30.4 L RDW 15.1 H Plt Count 189 MPV 11.9 H Immature Gran % (Auto) 0.3 Neut % (Auto) 67.7 Lymph % (Auto) 20.5 [place] % (Auto) 10.4 H Eos % (Auto) 0.6 Baso % (Auto) 0.5 Lymph # (Auto) 2.23 [place] # (Auto) 1.1 H Eos # (Auto) 0.1 Baso # (Auto) 0.1 Abs Immat Gran (auto) 0.03 Absolute Neuts (auto) 7.4 H Absolute Nucleated RBC 0.000 Nucleated RBC % 0.0 Sodium 146 H Potassium 3.9 Chloride 117 H Carbon Dioxide 24 Anion Gap 5 BUN 6 L D Creatinine 0.56 L Estim Creat Clear Calc 48 Estimated GFR > 60 Glucose 126 H Calcium 8.6 Magnesium 1.6 Total Bilirubin 0.9 AST 23 ALT 21 Alkaline Phosphatase 67 Total Protein 5.0 L Albumin 2.9 L Quality VTE Prophylaxis VTE prophylaxis: pharmacologic ordered
[2024-10-23] MEDS: PANTOPRAZOLE SODIUM IV 40 MG VIAL IV PUSH (07:59)
[2024-10-23] MEDS: ENOXAPARIN 40 MG/0.4 ML SYRINGE SUB-Q (07:59)
--- NOTE | 2024-10-23 08:39 | PM.PNGS ---
Progress Note: A&P Assessment and Plan (1) Small bowel obstruction: Code(s): K56.609 - Unspecified intestinal obstruction, unspecified as to partial versus complete obstruction Status: Acute Assessment and Plan: Large volume per NG yesterday, 950 cc. Patient improving, abdominal pain completely gone this morning. However, films still show small-bowel obstruction and she has not passed any gas or had a bowel movement. Will proceed with water-soluble small bowel series per nasogastric tube today. Continue nasogastric suction and IV fluids for now. Subjective Subjective Date/Time Seen: 10/23/24 08:39 Patient reports: pain is less (Abdominal pain is gone), no flatus, no bowel movement and afebrile Review of Systems Review of Systems: All systems reviewed & are unremarkable except as noted in HPI and below (HPI) Exam Const: General: comfortable, alert and awake GI: Inspection: normal to inspection and non-distended GI Palp: Yes Soft to palpation, No Tenderness to palpation present (GI) and No Guarding due to palpation present (GI) Objective Data Vital Signs Vital Signs: Vital Signs - 24 hr 10/22/24 12:00 10/22/24 13:39 10/22/24 15:59 Temperature 36.9 C Pulse Rate 71 65 Respiratory Rate 16 Blood Pressure 173/53 H 186/74 H Pulse Oximetry 100 Oxygen Delivery 10/22/24 16:00 10/22/24 16:28 10/22/24 19:57 Temperature 37.1 C Pulse Rate 78 78 Respiratory Rate 18 Blood Pressure 160/87 H 177/85 H Pulse Oximetry 94 Oxygen Delivery 10/22/24 20:00 10/22/24 20:00 10/22/24 23:32 Temperature Pulse Rate 84 Respiratory Rate Blood Pressure Pulse Oximetry 94 Oxygen Delivery Room Air Autopap 10/23/24 00:00 10/23/24 04:00 10/23/24 05:09 Temperature 37.1 C Pulse Rate 85 85 79 Respiratory Rate 18 Blood Pressure 159/65 H Pulse Oximetry 96 Oxygen Delivery Intake/Output Intake/Output: Intake & Output 10/20/24 10/21/24 10/22/24 10/23/24 23:59 23:59 23:59 23:59 Intake Total 0 2848.3 0 Output Total 1550 400 Balance 0 1298.3 -400 Meds/Results Medications: Active Medications Generic Name Dose Route Start Last Admin Trade Name Freq PRN Reason Stop Dose Admin Enoxaparin Sodium 40 mg 10/22/24 09:00 10/23/24 07:59 Enoxaparin 40 Mg/0.4 Ml Syringe SUB-Q 40 mg DAILY LESLEY Administration Hydralazine HCl 10 mg 10/21/24 10:52 10/22/24 20:26 Hydralazine Hcl 20 Mg/Ml Vial IV PUSH 10 mg Q4H PRN Administration Blood Pressure - High Potassium Chloride/Dextrose/Sod Cl 1,000 mls @ 100 mls/hr 10/21/24 17:00 10/22/24 23:12 Kcl 40 Meq/D5ns IV CONT 100 mls/hr .Q10H LESLEY Administration Morphine Sulfate 2 mg 10/21/24 08:01 10/22/24 23:12 Morphine Sulfate (*Crx) 2 Mg/Ml Inj IV PUSH 2 mg Q2H PRN Administration Pain Rated 7-10 Ondansetron HCl 4 mg 10/21/24 08:01 Ondansetron Inj 4 Mg/2 Ml Vial IV PUSH Q4H PRN Nausea Pantoprazole Sodium 40 mg 10/23/24 09:00 10/23/24 07:59 Pantoprazole Sodium Iv 40 Mg Vial IV PUSH 40 mg QAM LESLEY Administration Perflutren Lipid Microsphere 0 ml 10/23/24 07:59 Perflutren Lipid Microspheres 1.5 Ml Vial Diluted To 10 Ml Total Volume IV PUSH 10/26/24 07:59 ONCE PRN adequate visualization Protocol Phenol 1 spray 10/22/24 08:24 10/22/24 09:32 Phenol/Sod Pheno [place] Nelson (*Bkc) MUCOUS MEM 1 spray PRN PRN Administration Sore Throat Radiology Results: ITS Impressions Abdomen/Pelvis CT 10/21/24 07:26 Impression: Small bowel obstruction, as detailed above. Associated small amount of ascites and mesenteric edema. Chest X-Ray 10/21/24 11:05 Impression: Clear lungs. Possible COPD. NG tube in place. Abdomen X-Ray 10/23/24 07:25 IMPRESSION: 1. Persistent small bowel obstruction. 2. Mild streaky bibasilar atelectasis versus pneumonia. Labs Labs: Laboratory Results - last 24 hr 10/23/24 04:32 WBC 10.9 H RBC 3.70 L Hgb 10.7 L Hct 35.2 L MCV 95.1 MCH 28.9 MCHC 30.4 L RDW 15.1 H Plt Count 189 MPV 11.9 H Immature Gran % (Auto) 0.3 Neut % (Auto) 67.7 Lymph % (Auto) 20.5 [place] % (Auto) 10.4 H Eos % (Auto) 0.6 Baso % (Auto) 0.5 Lymph # (Auto) 2.23 [place] # (Auto) 1.1 H Eos # (Auto) 0.1 Baso # (Auto) 0.1 Abs Immat Gran (auto) 0.03 Absolute Neuts (auto) 7.4 H Absolute Nucleated RBC 0.000 Nucleated RBC % 0.0 Sodium 146 H Potassium 3.9 Chloride 117 H Carbon Dioxide 24 Anion Gap 5 BUN 6 L D Creatinine 0.56 L Estim Creat Clear Calc 48 Estimated GFR > 60 Glucose 126 H Calcium 8.6 Magnesium 1.6 Total Bilirubin 0.9 AST 23 ALT 21 Alkaline Phosphatase 67 Total Protein 5.0 L Albumin 2.9 L Imaging Attestation: I personally reviewed and interpreted this imaging study as follows: (Abdominal film from this morning) My impression: Persistently dilated small bowel loops in the center of the abdomen consistent with ongoing SBO Radiologist's impression: Abdomen X-Ray 10/23/24 07:25
--- NOTE | 2024-10-23 09:12 | P.PNGS_ITS ---
Progress Note: A&P Assessment and Plan (1) Small bowel obstruction: Code(s): K56.609 - Unspecified intestinal obstruction, unspecified as to partial versus complete obstruction Status: Acute Assessment and Plan: Large volume per NG yesterday, 950 cc. Patient improving, abdominal pain completely gone this morning. However, films still show small-bowel obstruction and she has not passed any gas or had a bowel movement. Will proceed with water-soluble small bowel series per nasogastric tube today. Continue nasogastric suction and IV fluids for now. Plan I have discussed the patient's case and plan of care with Dr. Miner. Subjective Subjective Date/Time Seen: 10/23/24 09:12 Patient reports: still having pain, no flatus, no bowel movement and afebrile Interval history: Patient seen with no family at the bedside. She is still having upper abdominal pain at times and has been receiving morphine up until last night. No flatus or BM. KUB this morning still showed small bowel obstruction. Exam Const: General: comfortable and no acute distress GI: Inspection: non-distended and scar (Midline scar) GI Palp: Yes Soft to palpation, Yes Tenderness to palpation present (GI) (Diffusely tender), Yes Guarding due to palpation present (GI) (In the left lower quadrant) and No Rebound tenderness present Objective Data Vital Signs Vital Signs: Vital Signs - 24 hr 10/22/24 12:00 10/22/24 13:39 10/22/24 15:59 Temperature 98.4 F Pulse Rate 71 65 Respiratory Rate 16 Blood Pressure 173/53 H 186/74 H Pulse Oximetry 100 Oxygen Delivery 10/22/24 16:00 10/22/24 16:28 10/22/24 19:57 Temperature 98.7 F Pulse Rate 78 78 Respiratory Rate 18 Blood Pressure 160/87 H 177/85 H Pulse Oximetry 94 Oxygen Delivery 10/22/24 20:00 10/22/24 20:00 10/22/24 23:32 Temperature Pulse Rate 84 Respiratory Rate Blood Pressure Pulse Oximetry 94 Oxygen Delivery Room Air Autopap 10/23/24 00:00 10/23/24 04:00 10/23/24 05:09 Temperature 98.8 F Pulse Rate 85 85 79 Respiratory Rate 18 Blood Pressure 159/65 H Pulse Oximetry 96 Oxygen Delivery 10/23/24 08:00 Temperature Pulse Rate Respiratory Rate Blood Pressure Pulse Oximetry 96 Oxygen Delivery Autopap Intake/Output Intake/Output: Intake & Output 10/20/24 10/21/24 10/22/24 10/23/24 23:59 23:59 23:59 23:59 Intake Total 0 2848.3 0 Output Total 1550 400 Balance 0 1298.3 -400 Meds/Results Medications: Active Medications Generic Name Dose Route Start Last Admin Trade Name Freq PRN Reason Stop Dose Admin Enoxaparin Sodium 40 mg 10/22/24 09:00 10/23/24 07:59 Enoxaparin 40 Mg/0.4 Ml Syringe SUB-Q 40 mg DAILY LESLEY Administration Hydralazine HCl 10 mg 10/21/24 10:52 10/22/24 20:26 Hydralazine Hcl 20 Mg/Ml Vial IV PUSH 10 mg Q4H PRN Administration Blood Pressure - High Potassium Chloride/Dextrose/Sod Cl 1,000 mls @ 100 mls/hr 10/21/24 17:00 10/22/24 23:12 Kcl 40 Meq/D5ns IV CONT 100 mls/hr .Q10H LESLEY Administration Morphine Sulfate 2 mg 10/21/24 08:01 10/22/24 23:12 Morphine Sulfate (*Crx) 2 Mg/Ml Inj IV PUSH 2 mg Q2H PRN Administration Pain Rated 7-10 Ondansetron HCl 4 mg 10/21/24 08:01 Ondansetron Inj 4 Mg/2 Ml Vial IV PUSH Q4H PRN Nausea Pantoprazole Sodium 40 mg 10/23/24 09:00 10/23/24 07:59 Pantoprazole Sodium Iv 40 Mg Vial IV PUSH 40 mg QAM LESLEY Administration Perflutren Lipid Microsphere 0 ml 10/23/24 07:59 Perflutren Lipid Microspheres 1.5 Ml Vial Diluted To 10 Ml Total Volume IV PUSH 10/26/24 07:59 ONCE PRN adequate visualization Protocol Phenol 1 spray 10/22/24 08:24 10/22/24 09:32 Phenol/Sod Pheno [place] Nelson (*Bkc) MUCOUS MEM 1 spray PRN PRN Administration Sore Throat Radiology Results: ITS Impressions Abdomen/Pelvis CT 10/21/24 07:26 Impression: Small bowel obstruction, as detailed above. Associated small amount of ascites and mesenteric edema. Chest X-Ray 05/18/25 11:05 Impression: Clear lungs. Possible COPD. NG tube in place. Abdomen X-Ray 10/23/24 07:25 IMPRESSION: 1. Persistent small bowel obstruction. 2. Mild streaky bibasilar atelectasis versus pneumonia. Labs Labs: Laboratory Results - last 24 hr 10/23/24 04:32 WBC 10.9 H RBC 3.70 L Hgb 10.7 L Hct 35.2 L MCV 95.1 MCH 28.9 MCHC 30.4 L RDW 15.1 H Plt Count 189 MPV 11.9 H Immature Gran % (Auto) 0.3 Neut % (Auto) 67.7 Lymph % (Auto) 20.5 Chase % (Auto) 10.4 H Eos % (Auto) 0.6 Baso % (Auto) 0.5 Lymph # (Auto) 2.23 [place] # (Auto) 1.1 H Eos # (Auto) 0.1 Baso # (Auto) 0.1 Abs Immat Gran (auto) 0.03 Absolute Neuts (auto) 7.4 H Absolute Nucleated RBC 0.000 Nucleated RBC % 0.0 Sodium 146 H Potassium 3.9 Chloride 117 H Carbon Dioxide 24 Anion Gap 5 BUN 6 L D Creatinine 0.56 L Estim Creat Clear Calc 48 Estimated GFR > 60 Glucose 126 H Calcium 8.6 Magnesium 1.6 Total Bilirubin 0.9 AST 23 ALT 21 Alkaline Phosphatase 67 Total Protein 5.0 L Albumin 2.9 L
[2024-10-23] MEDS: MORPHINE SULFATE (*CRX) 2 MG/ML INJ IV PUSH ×4 (10:00→22:34)
[2024-10-23] MEDS: KCL 40 MEQ/D5/0.9% SOD CHL 1,000 ML 100 ML IV CONT ×2 (12:32→22:19)
[2024-10-23] MEDS: ONDANSETRON INJ 4 MG/2 ML VIAL IV PUSH (12:41)
[2024-10-23] MEDS: hydrALAZINE HCL 20 MG/ML VIAL 10 MG IV PUSH (14:29)
[2024-10-24] VITALS (11 sets, daily range): BP systolic 112–168; BP diastolic 48–64; PULSE 61–86; RESP 16–20; TEMP 36.8–36.9; O2SAT 92–98
--- NOTE | 2024-10-24 | ECHO_ITS ---
Patient Info Name: Milena Mederos Age: 88 years : 1935 Gender: Female Ht: 60 in Wt: 135 lbs BSA: 1.63 m2 HR: 82 bpm BP: 162 / 64 mmHg Heart Rhythm: Sinus Rhythm Technical Quality: Fair Exam Date: 10/24/2024 10:31 AM Patient Status: I Admit Date: 10/21/2024 Exam Type: CA echo doppler color flow Complete two-dimensional, color flow and Doppler transthoracic echocardiogram is performed. Staff Referring Physician: Genaro Miner MD Air Conditioning Unit Assembler: Mary Lou Hutson Attending Provider: Jillian La Summary 1. Complete two-dimensional, color flow and Doppler transthoracic echocardiogram is performed. 2. Left ventricular chamber dimension is normal. 3. Left ventricular systolic function is normal, estimated at 65-70. 4. There is mildly increased left ventricular wall thickness. 5. The left ventricular diastolic function is grade I diastolic dysfunction. 6. Left atrial chamber dimension is severely enlarged. 7. There is mild mitral valve regurgitation. 8. The mitral valve annulus is severely calcified. 9. There is mild tricuspid valve regurgitation. 10. Mild pulmonary hypertension, estimated pulmonary arterial systolic pressure is 41 mmHg. 11. There is mild pulmonic regurgitation. 12. The aortic root size at the sinus of Valsalva is mildly dilated. Left Ventricle Left ventricular chamber dimension is normal. Left ventricular systolic function is normal, estimated at 65-70. There is mildly increased left ventricular wall thickness. The left ventricular diastolic function is grade I diastolic dysfunction. Right Ventricle Right ventricular chamber dimension is normal. Right ventricular systolic function is normal. Left Atria Left atrial chamber dimension is severely enlarged. Right Atria Right atrial chamber dimension is normal. Atrial Septum Intact interatrial septum visualized by color flow imaging. Aortic Valve There is mild aortic valve sclerosis. There is no aortic valve stenosis. There is trace aortic valve regurgitation. Pulmonic Valve The pulmonic valve is normal. There is no pulmonic valve stenosis. There is mild pulmonic regurgitation. Mitral Valve There is no mitral valve stenosis. There is mild mitral valve regurgitation. The mitral valve annulus is severely calcified. Tricuspid Valve The tricuspid valve leaflets are normal. There is no significant tricuspid valve stenosis. There is mild tricuspid valve regurgitation. Mild pulmonary hypertension, estimated pulmonary arterial systolic pressure is 41 mmHg. Pericardium/Pleural The pericardium appears normal. There is no pericardial effusion. Inferior Vena Cava Normal inferior vena cava with >50% collapse upon inspiration consistent with normal right atrial pressure, 8 mmHg. Aorta The aortic root size at the sinus of Valsalva is mildly dilated. Left Ventricular Outflow Tract Name Value Normal LVOT 2D LVOT Diameter 2.0 cm LVOT Doppler LVOT Peak Velocity 133 cm/s LVOT Peak Gradient 7 mmHg LVOT Mean Gradient 4 mmHg LVOT VTI 27 cm LVOT VTI/AV VTI Ratio 1.0 LVOT Stroke Volume 86 ml LVOT CO 6.2 l/min LVOT CI 3.8 l/min/m2 Pulmonic Valve Name Value Normal RVOT Doppler RVOT Peak Velocity 69 cm/s RVOT Peak Gradient 2 mmHg PV Doppler PV Peak Velocity 106 cm/s PV Peak Gradient 4 mmHg Mitral Valve Name Value Normal MV Doppler MV Peak Gradient 11 mmHg MV Mean Gradient 3 mmHg MV Area (Cont Eq VTI) 2.0 cm2 Tricuspid Valve Name Value Normal TV Regurgitation Doppler TR Peak Velocity 286 cm/s TR Peak Gradient 33 mmHg Estimated PAP/RSVP RA Pressure 8 mmHg <=5 PA Systolic Pressure 41 mmHg <36 RV Systolic Pressure 41 mmHg <36 TV Annular TDI TV Lateral Arlen s' Velocity 23.5 cm/s >=9.5 Aortic Valve Name Value Normal AV Doppler AV Peak Velocity 150 cm/s AV Peak Gradient 9 mmHg AV Mean Gradient 4 mmHg AV VTI 27 cm AV Area (Cont Eq VTI) 3.2 cm2 >=3.0 AV Area (Cont Eq Akira) 2.8 cm2 AV DI (Akira) 0.88 AV Regurgitation 2D LVOT Area 3.2 cm2 Ventricles Name Value Normal LV Dimensions 2D/MM IVS Diastolic Thickness (2D) 0.9 cm 0.6-1.0 LVID Diastole (2D) 4.2 cm 3.8-5.2 LVIW Diastolic Thickness (2D) 1.1 cm 0.6-0.9 LVID Systole (2D) 2.6 cm 2.2-3.5 LVOT Diameter 2.0 cm LV Mass (2D Cubed) 146.40 g 67.00-162.00 LV Mass Index (2D Cubed) 90 g/m2 43-95 Relative Wall Thickness (2D) 0.53 <=0.42 LV Fractional Shortening/Ejection Fraction 2D/MM LV Fractional Shortening (2D) 38 % 27-45 LV EF (2D Teichholz) 69 % LV Diastolic Volume (4C MOD) 62 ml LV EF (4C MOD) 62 % LV Diastolic Volume (2C MOD) 62 ml LV EF (2C MOD) 63 % LV Diastolic Volume (BP MOD) 84 ml 46-106 LV Diastolic Volume Index (BP MOD) 52 ml/m2 29-61 LV Systolic Volume (BP MOD) 22 ml 14-42 LV Systolic Volume Index (BP MOD) 14 ml/m2 8-24 LV EF (BP MOD) 74 % 54-74 LV Diastolic Length (4C) 6.3 cm LV Systolic Length (4C) 4.9 cm LV Stroke Volume (4C MOD) 39 ml Atria Name Value Normal LA Dimensions LA Volume (4C A-L) 70 ml LA Volume (BP A-L) 95 ml RA Dimensions RA Systolic Major [place] Length (4C) 5.8 cm 2.2-2.8 RA Area (4C) 20.1 cm2 <=18.0 Report Signatures
[2024-10-24] MEDS: hydrALAZINE HCL 20 MG/ML VIAL 10 MG IV PUSH (04:59)
[2024-10-24 05:04] LABS: Hematocrit 33.6 % (37.0-47.0); Hemoglobin 10.5 g/dL (12.0-15.0); Mean Corpuscular HGB Conc 31.3 g/dl (32-36); Mean Corpuscular Hemoglobin 29.3 pg (26-34); Mean Corpuscular Volume 93.9 fl (80-100); Mean Platelet Volume 11.5 fl (7.4-10.4); Platelet Count Result 192 k/mm3 (150-375); Red Blood Count 3.58 M/mm3 (4.2-5.4); Red Cell Distribution Width 15.1 % (11.5-14.5); White Blood Count 10.5 K/mm3 (4.5-10.0)
[2024-10-24 05:23] LABS: Anion Gap 2 mmol/L (4-12); Blood Urea Nitrogen 7 mg/dL (7-17); Calcium 8.5 mg/dL (8.4-10.2); Carbon Dioxide 25 mmol/L (22-30); Chloride 122 mmol/L (98-107); Estimated CRCL calculation 41 ml/min; Estimated Glomerular Filt Rate > 60; Glucose 127 mg/dL (65-110); Potassium 4.2 mmol/L (3.4-5.0); Sodium 149 mmol/L (137-145)
--- NOTE | 2024-10-24 07:03 | PM.PNGS ---
Progress Note: A&P Assessment and Plan (1) Small bowel obstruction: Code(s): K56.609 - Unspecified intestinal obstruction, unspecified as to partial versus complete obstruction Status: Acute Assessment and Plan: Appears to have resolved by exam, imaging. Will discontinue nasogastric tube and start full liquids. Hold off on full anticoagulation until we see if she is going to tolerate oral intake. Continue prophylactic dose of Lovenox. Subjective Subjective Date/Time Seen: 10/24/24 07:03 Patient reports: feels better, pain is less (No abdominal pain), bowel movement and afebrile Interval history: Had several bowel movements after small bowel series yesterday. Had loose stool already this morning Review of Systems Review of Systems: All systems reviewed & are unremarkable except as noted in HPI and below (HPI) Exam Const: General: cooperative, comfortable, alert and awake GI: Inspection: normal to inspection, non-distended and scaphoid GI Palp: Yes Soft to palpation, Yes Tenderness to palpation present (GI) (Left mid abdomen remains tender) and No Guarding due to palpation present (GI) Auscultation: normal bowel sounds and normoactive bowel sounds Objective Data Vital Signs Vital Signs: Vital Signs - 24 hr 10/23/24 08:00 10/23/24 08:00 10/23/24 12:00 Temperature Pulse Rate 85 94 Respiratory Rate Blood Pressure Pulse Oximetry 96 Oxygen Delivery Autopap Fraction of Inspired Oxygen 10/23/24 14:00 10/23/24 15:47 10/23/24 16:00 Temperature 37.1 C Pulse Rate 68 85 Respiratory Rate 18 Blood Pressure 171/71 H 150/47 H Pulse Oximetry 96 Oxygen Delivery Fraction of Inspired Oxygen 10/23/24 19:43 10/23/24 20:00 10/23/24 20:00 Temperature 36.5 C Pulse Rate 79 87 79 Respiratory Rate 18 18 Blood Pressure 152/64 H Pulse Oximetry 100 100 Oxygen Delivery Autopap Fraction of Inspired Oxygen 10/24/24 00:00 10/24/24 04:00 10/24/24 04:54 Temperature 36.8 C Pulse Rate 78 80 78 Respiratory Rate 18 Blood Pressure 168/64 H Pulse Oximetry 96 Oxygen Delivery Fraction of Inspired Oxygen Intake/Output Intake/Output: Intake & Output 10/21/24 10/22/24 10/23/24 10/24/24 23:59 23:59 23:59 23:59 Intake Total 0 2848.3 2200.3 0 Output Total 1550 1601 600 Balance 0 1298.3 599.3 -600 Meds/Results Medications: Active Medications Generic Name Dose Route Start Last Admin Trade Name Freq PRN Reason Stop Dose Admin Enoxaparin Sodium 40 mg 10/22/24 09:00 10/23/24 07:59 Enoxaparin 40 Mg/0.4 Ml Syringe SUB-Q 40 mg DAILY LESLEY Administration Hydralazine HCl 10 mg 10/21/24 10:52 10/24/24 04:59 Hydralazine Hcl 20 Mg/Ml Vial IV PUSH 10 mg Q4H PRN Administration Blood Pressure - High Potassium Chloride/Dextrose/Sod Cl 1,000 mls @ 100 mls/hr 10/24/24 06:30 Kcl 40 Meq/D5 1/2ns IV CONT .Q10H LESLEY Morphine Sulfate 2 mg 10/21/24 08:01 10/23/24 22:34 Morphine Sulfate (*Crx) 2 Mg/Ml Inj IV PUSH 2 mg Q2H PRN Administration Pain Rated 7-10 Ondansetron HCl 4 mg 10/21/24 08:01 10/23/24 12:41 Ondansetron Inj 4 Mg/2 Ml Vial IV PUSH 4 mg Q4H PRN Administration Nausea Perflutren Lipid Microsphere 0 ml 10/23/24 07:59 Perflutren Lipid Microspheres 1.5 Ml Vial Diluted To 10 Ml Total Volume IV PUSH 10/26/24 07:59 ONCE PRN adequate visualization Protocol Phenol 1 spray 10/22/24 08:24 10/22/24 09:32 Phenol/Sod Pheno [place] Nelson (*Bkc) MUCOUS MEM 1 spray PRN PRN Administration Sore Throat Radiology Results: ITS Impressions Abdomen/Pelvis CT 10/21/24 07:26 Impression: Small bowel obstruction, as detailed above. Associated small amount of ascites and mesenteric edema. Chest X-Ray 10/21/24 11:05 Impression: Clear lungs. Possible COPD. NG tube in place. Small Bowel X-Ray 10/23/24 12:53 IMPRESSION: 1. Persistent mild dilation of a few loops of small bowel in the mid to left lower quadrant of the abdomen with mildly delayed small bowel transit time of 3 hours consistent with persistent partial small bowel obstruction. Abdomen X-Ray 10/24/24 06:34 Impression: Nonspecific bowel gas pattern overall. NG tube in place. Labs Labs: Laboratory Results - last 24 hr 10/24/24 04:30 WBC 10.5 H RBC 3.58 L Hgb 10.5 L Hct 33.6 L MCV 93.9 MCH 29.3 MCHC 31.3 L RDW 15.1 H Plt Count 192 MPV 11.5 H Sodium 149 H Potassium 4.2 Chloride 122 H Carbon Dioxide 25 Anion Gap 2 L BUN 7 Creatinine 0.66 L Estim Creat Clear Calc 41 Estimated GFR > 60 Glucose 127 H Calcium 8.5 Imaging Attestation: I personally reviewed and interpreted this imaging study as follows: (Small-bowel series from yesterday, plain film of the abdomen from this morning) My impression: Small-bowel series still showed dilated small bowel but contrast did pass into the colon. It took 3 hours. Plain film from this morning looks much better. The mid abdominal dilated small bowel loops are gone. All the contrast is in the colon. Radiologist's impression: Small Bowel X-Ray 10/23/24 12:53
[2024-10-24 07:39] LABS: Magnesium 1.7 mg/dL (1.6-2.3)
[2024-10-24] MEDS: KCL 40 MEQ/D5 1/2NS 1,000 ML 100 ML IV CONT ×2 (08:24→16:50)
[2024-10-24] MEDS: hydrALAZINE HCL 50 MG TABLET PO ×2 (08:24→16:49)
[2024-10-24] MEDS: ATORVASTATIN 40 MG TABLET PO (08:25)
[2024-10-24] MEDS: hydroCHLOROthiazide 25 MG TABLET PO (08:25)
[2024-10-24] MEDS: FAMOTIDINE 20 MG TABLET PO ×2 (08:25→21:00)
[2024-10-24] MEDS: ENOXAPARIN 40 MG/0.4 ML SYRINGE SUB-Q (08:25)
--- NOTE | 2024-10-24 10:07 | P.PNIM_ITS ---
Progress Note: A&P Assessment and Plan (1) Atrial fibrillation: Code(s): I48.91 - Unspecified atrial fibrillation Status: Acute Assessment and Plan: * EKG showed afib * No history of Afiib * Tele today NSR * TSH wnl * ECHO 10/24/24 showed: Summary 1. Complete two-dimensional, color flow and Doppler transthoracic echocardiogram is performed. 2. Left ventricular chamber dimension is normal. 3. Left ventricular systolic function is normal, estimated at 65-70. 4. There is mildly increased left ventricular wall thickness. 5. The left ventricular diastolic function is grade I diastolic dysfunction. 6. Left atrial chamber dimension is severely enlarged. 7. There is mild mitral valve regurgitation. 8. The mitral valve annulus is severely calcified. 9. There is mild tricuspid valve regurgitation. 10. Mild pulmonary hypertension, estimated pulmonary arterial systolic pressure is 41 mmHg. 11. There is mild pulmonic regurgitation. 12. The aortic root size at the sinus of Valsalva is mildly dilated. * Cardiology consult, appreciate recommendations. * Will start on Eliquis 2.5mg bid once SBO resolved * No full AC now as patient may need surgery (2) Small bowel obstruction: Code(s): K56.609 - Unspecified intestinal obstruction, unspecified as to partial versus complete obstruction Status: Acute Assessment and Plan: * X-ray this morning showed: Nonspecific bowel gas pattern overall. NG tube in place. * Surgery following. * NGT removed today. * Tolerating full liquid diet. Subjective Date/time seen: 10/24/24 10:07 Interval history: Patient sitting up in bed. Patient reports feeling better. Patient denies chest pain, palpitations, headache, dizziness, nausea, or vomiting. Review of Systems Review of Systems: All systems reviewed & are unremarkable except as noted in HPI and below Exam Const: General: comfortable and no acute distress Resp: Effort & Inspection: normal respiratory effort Auscultation: clear to auscultation bilaterally Cardio: Rate: regular rate Rhythm: regular rhythm Other: Telemetry- SR 92 with multiform PVC's GI: GI Palp: Yes Soft to palpation and Yes Tenderness to palpation present (GI) (left mid) Auscultation: normal bowel sounds Neuro: Speech: normal speech Extrem: General: pedal edema bilaterally (trace) Psych: Mental Status: mental status grossly normal Affect: normal affect Objective Data Vital Signs Vital Signs: Vital Signs - 24 hr 10/23/24 12:00 10/23/24 14:00 10/23/24 15:47 Temperature 98.8 F Pulse Rate 94 68 Respiratory Rate 18 Blood Pressure 171/71 H 150/47 H Pulse Oximetry 96 Oxygen Delivery Fraction of Inspired Oxygen 10/23/24 16:00 10/23/24 19:43 10/23/24 20:00 Temperature 97.7 F Pulse Rate 85 79 87 Respiratory Rate 18 18 Blood Pressure 152/64 H Pulse Oximetry 100 100 Oxygen Delivery Autopap Fraction of Inspired Oxygen 10/23/24 20:00 10/24/24 00:00 10/24/24 04:00 Temperature Pulse Rate 79 78 80 Respiratory Rate Blood Pressure Pulse Oximetry Oxygen Delivery Fraction of Inspired Oxygen 10/24/24 04:54 10/24/24 08:00 10/24/24 08:00 Temperature 98.2 F Pulse Rate 78 86 Respiratory Rate 18 Blood Pressure 168/64 H Pulse Oximetry 96 96 Oxygen Delivery Room Air Fraction of Inspired Oxygen Intake/Output Intake/Output: Intake & Output 10/21/24 10/22/24 10/23/24 10/24/24 23:59 23:59 23:59 23:59 Intake Total 0 2848.3 2200.3 1100 Output Total 1550 1601 600 Balance 0 1298.3 599.3 500 Meds/Results Medications: Active Medications Generic Name Dose Route Start Last Admin Trade Name Freq PRN Reason Stop Dose Admin Atorvastatin Calcium 40 mg 10/24/24 09:00 10/24/24 08:25 Atorvastatin 40 Mg Tablet PO 40 mg DAILY LESLEY Administration Enoxaparin Sodium 40 mg 10/22/24 09:00 10/24/24 08:25 Enoxaparin 40 Mg/0.4 Ml Syringe SUB-Q 40 mg DAILY LESLEY Administration Famotidine 20 mg 10/24/24 09:00 10/24/24 08:25 Famotidine 20 Mg Tablet PO 20 mg Q12HR LESLEY Administration Hydralazine HCl 50 mg 10/24/24 09:00 10/24/24 08:24 Hydralazine Hcl 50 Mg Tablet PO 50 mg BID LESLEY Administration Hydrochlorothiazide 25 mg 10/24/24 09:00 10/24/24 08:25 Hydrochlorothiazide 25 Mg Tablet PO 25 mg DAILY LESLEY Administration Potassium Chloride/Dextrose/Sod Cl 1,000 mls @ 100 mls/hr 10/24/24 06:30 10/24/24 08:24 Kcl 40 Meq/D5 1/2ns IV CONT 100 mls/hr .Q10H LESLEY Administration Morphine Sulfate 2 mg 10/21/24 08:01 10/23/24 22:34 Morphine Sulfate (*Crx) 2 Mg/Ml Inj IV PUSH 2 mg Q2H PRN Administration Pain Rated 7-10 Ondansetron HCl 4 mg 10/21/24 08:01 10/23/24 12:41 Ondansetron Inj 4 Mg/2 Ml Vial IV PUSH 4 mg Q4H PRN Administration Nausea Perflutren Lipid Microsphere 0 ml 10/23/24 07:59 Perflutren Lipid Microspheres 1.5 Ml Vial Diluted To 10 Ml Total Volume IV PUSH 10/26/24 07:59 ONCE PRN adequate visualization Protocol Phenol 1 spray 10/22/24 08:24 10/22/24 09:32 Phenol/Sod Pheno [place] Nelson (*Bkc) MUCOUS MEM 1 spray PRN PRN Administration Sore Throat Radiology Results: ITS Impressions Abdomen/Pelvis CT 10/21/24 07:26 Impression: Small bowel obstruction, as detailed above. Associated small amount of ascites and mesenteric edema. Chest X-Ray 10/21/24 11:05 Impression: Clear lungs. Possible COPD. NG tube in place. Small Bowel X-Ray 10/23/24 12:53 IMPRESSION: 1. Persistent mild dilation of a few loops of small bowel in the mid to left lower quadrant of the abdomen with mildly delayed small bowel transit time of 3 hours consistent with persistent partial small bowel obstruction. Abdomen X-Ray 10/24/24 06:34 Impression: Nonspecific bowel gas pattern overall. NG tube in place. Labs Labs: Laboratory Results - last 24 hr 10/24/24 04:30 WBC 10.5 H RBC 3.58 L Hgb 10.5 L Hct 33.6 L MCV 93.9 MCH 29.3 MCHC 31.3 L RDW 15.1 H Plt Count 192 MPV 11.5 H Sodium 149 H Potassium 4.2 Chloride 122 H Carbon Dioxide 25 Anion Gap 2 L BUN 7 Creatinine 0.66 L Estim Creat Clear Calc 41 Estimated GFR > 60 Glucose 127 H Calcium 8.5 Magnesium 1.7 Quality VTE Prophylaxis VTE prophylaxis: pharmacologic ordered
--- NOTE | 2024-10-24 11:54 | PM.PNCARD ---
Progress Note: A&P Assessment and Plan (1) Atrial fibrillation: Code(s): I48.91 - Unspecified atrial fibrillation Status: Acute Assessment and Plan: Newly recognized ordered diagnosed atrial fibrillation. She has a chads Vasc score of 6. This may be related to her small bowel obstruction, marked hypokalemia which is newly recognized. Regardless her heart rate is controlled. Echo pending. I had a discussion with her as well as the patient's daughter via telephone. I went through the risks, benefits and alternatives anticoagulation versus anti-platelet therapy versus nothing given her atrial fibrillation and chads Vasc score at least 5. She does not fall. She has no bleeding issues. Daughter was hesitant to pursue anticoagulation but in talking to the patient as well as discussing the risks, benefits alternatives as previously described including high risk of stroke versus low risk of bleeding with blood thinner but understand there is some risk of bleeding with the blood thinner including bleeding in the brain or bleeding to , the patient did agree and wishes to pursue anticoagulation. I did also state that anti-platelet therapy would reduce risk a little bit but would also have less bleeding risk but recommendation given her chads Vasc score would be to fully anticoagulate. She verbalized understanding. Dr. Bobby note reviewed today. Wishes to hold off on anticoagulation today because she is just now starting to eat some food. But when able, start Eliquis 2.5 mg p.o. b.i.d.. (2) Peripheral vascular disease: Code(s): I73.9 - Peripheral vascular disease, unspecified Status: Acute (3) HLD (hyperlipidemia): Code(s): E78.5 - Hyperlipidemia, unspecified Status: Acute Assessment and Plan: On atorvastatin at home (4) HTN (hypertension): Code(s): I10 - Essential (primary) hypertension Status: Acute Assessment and Plan: On hydralazine and hydrochlorothiazide as an outpatient. Can use IV p.r.n. meds as needed. BP has been a little high (5) Small bowel obstruction: Code(s): K56.609 - Unspecified intestinal obstruction, unspecified as to partial versus complete obstruction Status: Acute Assessment and Plan: NG out (6) Acute hypokalemia: Code(s): E87.6 - Hypokalemia Status: Acute Assessment and Plan: Resolved. Potassium 4.2 today Subjective Date/time seen: 10/24/24 11:54 Interval history: 88-year-old consult for atrial fibrillation Date of service 10/24/2024: No chest pain or shortness breath. Feeling okay. Review of Systems Review of Systems: All systems reviewed & are unremarkable except as noted in HPI and below Constitutional: Constitutional: Denies body ache(s) and Denies excessive sweating Eyes: Eyes: Denies blurry vision ENT: Reports Normal hearing present Cardiovascular: Cardiovascular: Denies chest pain Respiratory: Respiratory: Denies chest congestion Gastrointestinal: Gastrointestinal: Reports abdominal pain, Reports nausea and Reports vomiting Genitourinary: Genitourinary: Denies hematuria Musculoskeletal: Musculoskeletal: Denies back pain Integumentary/Breasts: Skin/Breast: Denies pruritus Neurologic: Reports Normal hearing present, Denies Abnormal speech present and Denies behavioral changes Psychiatric: Psychiatric: Denies behavioral changes Endocrine: Endocrine: Denies excessive sweating Hematologic/Lymphatic: Hematologic/Lymphatic: Denies easy bleeding Allergic/Immunologic: Allergic/Immunologic: Denies GI upset with certain foods Exam Narrative: Alert oriented appears stated age Const: General: comfortable and no acute distress HENMT: Face/Nose/Sinus: Normal nares present Mouth: Yes moist mucous membranes Eyes: General: appearance normal, both eyes and all related structures Sclera: sclerae normal Neck: Neck: supple and no JVD Chest: Other: No reproducible chest wall pain to palpation Resp: Effort & Inspection: normal respiratory effort Auscultation: clear to auscultation bilaterally Cardio: Rate: regular rate Rhythm: abnormal rhythm irregularly irregular GI: Inspection: non-distended Auscultation: abnormal bowel sounds Skin: General skin exam: normal color Neuro: Cranial nerves: Yes Normal hearing present Speech: normal speech and No Abnormal speech present Sensory Exam: normal sensation Extrem: General: edema Other: Very mild lower extremity edema bilaterally Psych: Mental Status: mental status grossly normal Affect: normal affect Objective Data Vital Signs Vital Signs: Vital Signs - 24 hr 10/23/24 12:00 10/23/24 14:00 10/23/24 15:47 Temperature 37.1 C Pulse Rate 94 68 Respiratory Rate 18 Blood Pressure 171/71 H 150/47 H Pulse Oximetry 96 Oxygen Delivery Fraction of Inspired Oxygen 10/23/24 16:00 10/23/24 19:43 10/23/24 20:00 Temperature 36.5 C Pulse Rate 85 79 87 Respiratory Rate 18 18 Blood Pressure 152/64 H Pulse Oximetry 100 100 Oxygen Delivery Autopap Fraction of Inspired Oxygen 10/23/24 20:00 10/24/24 00:00 10/24/24 04:00 Temperature Pulse Rate 79 78 80 Respiratory Rate Blood Pressure Pulse Oximetry Oxygen Delivery Fraction of Inspired Oxygen 10/24/24 04:54 10/24/24 08:00 10/24/24 08:00 Temperature 36.8 C Pulse Rate 78 86 Respiratory Rate 18 Blood Pressure 168/64 H Pulse Oximetry 96 96 Oxygen Delivery Room Air Fraction of Inspired Oxygen Intake/Output Intake/Output: Intake & Output 10/21/24 10/22/24 10/23/24 10/24/24 23:59 23:59 23:59 23:59 Intake Total 0 2848.3 2200.3 1100 Output Total 1550 1601 600 Balance 0 1298.3 599.3 500 Meds/Results Medications: Active Medications Generic Name Dose Route Start Last Admin Trade Name Freq PRN Reason Stop Dose Admin Atorvastatin Calcium 40 mg 10/24/24 09:00 10/24/24 08:25 Atorvastatin 40 Mg Tablet PO 40 mg DAILY LESLEY Administration Enoxaparin Sodium 40 mg 10/22/24 09:00 10/24/24 08:25 Enoxaparin 40 Mg/0.4 Ml Syringe SUB-Q 40 mg DAILY LESLEY Administration Famotidine 20 mg 10/24/24 09:00 10/24/24 08:25 Famotidine 20 Mg Tablet PO 20 mg Q12HR LESLEY Administration Hydralazine HCl 50 mg 10/24/24 09:00 10/24/24 08:24 Hydralazine Hcl 50 Mg Tablet PO 50 mg BID LESLEY Administration Hydrochlorothiazide 25 mg 10/24/24 09:00 10/24/24 08:25 Hydrochlorothiazide 25 Mg Tablet PO 25 mg DAILY LESLEY Administration Potassium Chloride/Dextrose/Sod Cl 1,000 mls @ 100 mls/hr 10/24/24 06:30 10/24/24 08:24 Kcl 40 Meq/D5 1/2ns IV CONT 100 mls/hr .Q10H LESLEY Administration Morphine Sulfate 2 mg 10/21/24 08:01 10/23/24 22:34 Morphine Sulfate (*Crx) 2 Mg/Ml Inj IV PUSH 2 mg Q2H PRN Administration Pain Rated 7-10 Ondansetron HCl 4 mg 10/21/24 08:01 10/23/24 12:41 Ondansetron Inj 4 Mg/2 Ml Vial IV PUSH 4 mg Q4H PRN Administration Nausea Perflutren Lipid Microsphere 0 ml 10/23/24 07:59 Perflutren Lipid Microspheres 1.5 Ml Vial Diluted To 10 Ml Total Volume IV PUSH 10/26/24 07:59 ONCE PRN adequate visualization Protocol Phenol 1 spray 10/22/24 08:24 10/22/24 09:32 Phenol/Sod Pheno [place] [facility] (*Bkc) MUCOUS MEM 1 spray PRN PRN Administration Sore Throat Radiology Results: ITS Impressions Abdomen/Pelvis CT 10/21/24 07:26 Impression: Small bowel obstruction, as detailed above. Associated small amount of ascites and mesenteric edema. Chest X-Ray 10/21/24 11:05 Impression: Clear lungs. Possible COPD. NG tube in place. Small Bowel X-Ray 10/23/24 12:53 IMPRESSION: 1. Persistent mild dilation of a few loops of small bowel in the mid to left lower quadrant of the abdomen with mildly delayed small bowel transit time of 3 hours consistent with persistent partial small bowel obstruction. Abdomen X-Ray 10/24/24 06:34 Impression: Nonspecific bowel gas pattern overall. NG tube in place. Labs Labs: Laboratory Results - last 24 hr 10/24/24 04:30 WBC 10.5 H RBC 3.58 L Hgb 10.5 L Hct 33.6 L MCV 93.9 MCH 29.3 MCHC 31.3 L RDW 15.1 H Plt Count 192 MPV 11.5 H Sodium 149 H Potassium 4.2 Chloride 122 H Carbon Dioxide 25 Anion Gap 2 L BUN 7 Creatinine 0.66 L Estim Creat Clear Calc 41 Estimated GFR > 60 Glucose 127 H Calcium 8.5 Magnesium 1.7
[2024-10-25] VITALS: PULSE 73
[2024-10-25] MEDS: MELATONIN 5 MG TABLET PO (00:16)
[2024-10-25] MEDS: KCL 40 MEQ/D5 1/2NS 1,000 ML 100 ML IV CONT (02:47)
[2024-10-25 04:00] VITALS: PULSE 57
[2024-10-25 05:08] VITALS: BP 130/54; PULSE 71; RESP 17; TEMP 36.5; O2SAT 97
[2024-10-25 05:17] LABS: Hematocrit 32.6 % (37.0-47.0); Mean Corpuscular HGB Conc 30.7 g/dl (32-36); Mean Corpuscular Volume 94.5 fl (80-100); Mean Platelet Volume 11.3 fl (7.4-10.4); Platelet Count Result 168 k/mm3 (150-375); Red Blood Count 3.45 M/mm3 (4.2-5.4); Red Cell Distribution Width 14.6 % (11.5-14.5); White Blood Count 9.4 K/mm3 (4.5-10.0)
[2024-10-25 05:28] LABS: Anion Gap 3 mmol/L (4-12); Blood Urea Nitrogen 6 mg/dL (7-17); Calcium 8.2 mg/dL (8.4-10.2); Carbon Dioxide 23 mmol/L (22-30); Chloride 113 mmol/L (98-107); Estimated CRCL calculation 43 ml/min; Estimated Glomerular Filt Rate > 60; Glucose 97 mg/dL (65-110); Sodium 139 mmol/L (137-145)
--- NOTE | 2024-10-25 07:59 | PM.PNGS ---
Progress Note: A&P Assessment and Plan (1) Small bowel obstruction: Code(s): K56.609 - Unspecified intestinal obstruction, unspecified as to partial versus complete obstruction Status: Acute Assessment and Plan: Resolved. Advance to regular diet. Saline lock IV. Okay to discharge from surgical standpoint. No need for surgical follow-up. Subjective Subjective Date/Time Seen: 10/25/24 07:59 Patient reports: no new complaints, feels better, pain is less (No abdominal pain, no nausea, tolerated food well), tolerating liquids well and afebrile Review of Systems Review of Systems: All systems reviewed & are unremarkable except as noted in HPI and below (HPI) Exam Const: General: comfortable GI: Inspection: normal to inspection and non-distended GI Palp: Yes Soft to palpation and No Tenderness to palpation present (GI) Objective Data Vital Signs Vital Signs: Vital Signs - 24 hr 10/24/24 08:00 10/24/24 08:00 10/24/24 12:00 Temperature Pulse Rate 86 84 Respiratory Rate Blood Pressure Pulse Oximetry 96 Oxygen Delivery Room Air Fraction of Inspired Oxygen 10/24/24 14:00 10/24/24 16:00 10/24/24 16:48 Temperature Pulse Rate 82 71 Respiratory Rate 16 Blood Pressure 112/48 L 132/51 L Pulse Oximetry 98 Oxygen Delivery Fraction of Inspired Oxygen 10/24/24 20:00 10/24/24 20:00 10/24/24 20:30 Temperature 36.9 C Pulse Rate 62 61 Respiratory Rate 17 Blood Pressure 153/60 H Pulse Oximetry 97 Oxygen Delivery Room Air Fraction of Inspired Oxygen 10/24/24 20:38 10/25/24 00:00 10/25/24 04:00 Temperature Pulse Rate 64 73 57 L Respiratory Rate 20 Blood Pressure Pulse Oximetry 92 Oxygen Delivery Room Air Fraction of Inspired Oxygen 10/25/24 05:08 Temperature 36.5 C Pulse Rate 71 Respiratory Rate 17 Blood Pressure 130/54 L Pulse Oximetry 97 Oxygen Delivery Fraction of Inspired Oxygen Intake/Output Intake/Output: Intake & Output 10/22/24 10/23/24 10/24/24 10/25/24 23:59 23:59 23:59 23:59 Intake Total 2848.3 2200.3 3083.3 1195 Output Total 1550 1601 600 Balance 1298.3 599.3 2483.3 1195 Meds/Results Medications: Active Medications Generic Name Dose Route Start Last Admin Trade Name Freq PRN Reason Stop Dose Admin Atorvastatin Calcium 40 mg 10/24/24 09:00 10/24/24 08:25 Atorvastatin 40 Mg Tablet PO 40 mg DAILY LESLEY Administration Enoxaparin Sodium 40 mg 10/22/24 09:00 10/24/24 08:25 Enoxaparin 40 Mg/0.4 Ml Syringe SUB-Q 40 mg DAILY LESLEY Administration Famotidine 20 mg 10/24/24 09:00 10/24/24 21:00 Famotidine 20 Mg Tablet PO 20 mg Q12HR LESLEY Administration Hydralazine HCl 50 mg 10/24/24 09:00 10/24/24 16:49 Hydralazine Hcl 50 Mg Tablet PO 50 mg BID LESLEY Administration Hydrochlorothiazide 25 mg 10/24/24 09:00 10/24/24 08:25 Hydrochlorothiazide 25 Mg Tablet PO 25 mg DAILY LESLEY Administration Potassium Chloride/Dextrose/Sod Cl 1,000 mls @ 100 mls/hr 10/24/24 06:30 10/25/24 02:47 Kcl 40 Meq/D5 1/2ns IV CONT 100 mls/hr .Q10H LESLEY Administration Morphine Sulfate 2 mg 10/21/24 08:01 10/23/24 22:34 Morphine Sulfate (*Crx) 2 Mg/Ml Inj IV PUSH 2 mg Q2H PRN Administration Pain Rated 7-10 Ondansetron HCl 4 mg 10/21/24 08:01 10/23/24 12:41 Ondansetron Inj 4 Mg/2 Ml Vial IV PUSH 4 mg Q4H PRN Administration Nausea Perflutren Lipid Microsphere 0 ml 10/23/24 07:59 Perflutren Lipid Microspheres 1.5 Ml Vial Diluted To 10 Ml Total Volume IV PUSH 10/26/24 07:59 ONCE PRN adequate visualization Protocol Phenol 1 spray 10/22/24 08:24 10/22/24 09:32 Phenol/Sod Pheno [place] Nelson (*Bkc) MUCOUS MEM 1 spray PRN PRN Administration Sore Throat Radiology Results: ITS Impressions Abdomen/Pelvis CT 10/21/24 07:26 Impression: Small bowel obstruction, as detailed above. Associated small amount of ascites and mesenteric edema. Chest X-Ray 10/21/24 11:05 Impression: Clear lungs. Possible COPD. NG tube in place. Small Bowel X-Ray 10/23/24 12:53 IMPRESSION: 1. Persistent mild dilation of a few loops of small bowel in the mid to left lower quadrant of the abdomen with mildly delayed small bowel transit time of 3 hours consistent with persistent partial small bowel obstruction. Abdomen X-Ray 10/24/24 06:34 Impression: Nonspecific bowel gas pattern overall. NG tube in place. Labs Labs: Laboratory Results - last 24 hr 10/25/24 04:36 WBC 9.4 RBC 3.45 L Hgb 10.0 L Hct 32.6 L MCV 94.5 MCH 29.0 MCHC 30.7 L RDW 14.6 H Plt Count 168 MPV 11.3 H Sodium 139 Potassium 4.0 Chloride 113 H Carbon Dioxide 23 Anion Gap 3 L BUN 6 L Creatinine 0.64 L Estim Creat Clear Calc 43 Estimated GFR > 60 Glucose 97 Calcium 8.2 L
[2024-10-25 08:09] VITALS: BP 151/70; PULSE 70; RESP 14; TEMP 36.2; O2SAT 97
[2024-10-25 08:11] VITALS: PULSE 70; PULSE 81; RESP 14; O2SAT 97
[2024-10-25] MEDS: hydrALAZINE HCL 50 MG TABLET PO ×2 (08:11→17:31)
[2024-10-25] MEDS: hydroCHLOROthiazide 25 MG TABLET PO (08:11)
[2024-10-25] MEDS: ATORVASTATIN 40 MG TABLET PO (08:11)
[2024-10-25] MEDS: FAMOTIDINE 20 MG TABLET PO (08:11)
[2024-10-25] MEDS: ENOXAPARIN 40 MG/0.4 ML SYRINGE SUB-Q (08:11)
[2024-10-25 09:23] LABS: Magnesium 1.5 mg/dL (1.6-2.3)
--- NOTE | 2024-10-25 10:26 | PM.PNCARD ---
Progress Note: A&P Assessment and Plan (1) HTN (hypertension): Code(s): I10 - Essential (primary) hypertension Status: Acute (2) Atrial fibrillation: Code(s): I48.91 - Unspecified atrial fibrillation Status: Acute (3) HLD (hyperlipidemia): Code(s): E78.5 - Hyperlipidemia, unspecified Status: Acute Plan 88-year-old woman with hypertension hyperlipidemia presented with nausea and vomiting found to have small-bowel obstruction and now also new onset paroxysmal atrial fibrillation Paroxysmal atrial fibrillation -she is now in sinus rhythm -start Eliquis 5 mg p.o. b.i.d. Hypertension -she is on hydralazine and hydrochlorothiazide Hyperlipidemia -atorvastatin 40 mg every evening No further inpatient cardiac workup warranted at this time. Please call Cardiology with additional questions. Subjective Date/time seen: 10/25/24 10:26 Interval history: She denies any chest pain, shortness of breath Review of Systems Cardiovascular: Cardiovascular: Reports as per HPI Respiratory: Respiratory: Reports as per HPI Exam Const: General: comfortable HENMT: Mouth: Yes moist mucous membranes Eyes: EOM: EOMs intact bilaterally Neck: Neck: no JVD Resp: Effort & Inspection: normal respiratory effort Auscultation: clear to auscultation bilaterally Cardio: Rate: regular rate Rhythm: regular rhythm Extrem: General: no pedal edema Objective Data Vital Signs Vital Signs: Vital Signs - 24 hr 10/24/24 12:00 10/24/24 14:00 10/24/24 16:00 Temperature Pulse Rate 84 82 71 Respiratory Rate 16 Blood Pressure 112/48 L Pulse Oximetry 98 Oxygen Delivery Fraction of Inspired Oxygen 10/24/24 16:48 10/24/24 20:00 10/24/24 20:00 Temperature Pulse Rate 62 Respiratory Rate Blood Pressure 132/51 L Pulse Oximetry Oxygen Delivery Room Air Fraction of Inspired Oxygen 10/24/24 20:30 10/24/24 20:38 10/25/24 00:00 Temperature 36.9 C Pulse Rate 61 64 73 Respiratory Rate 17 20 Blood Pressure 153/60 H Pulse Oximetry 97 92 Oxygen Delivery Room Air Fraction of Inspired Oxygen 10/25/24 04:00 10/25/24 05:08 10/25/24 08:09 Temperature 36.5 C 36.2 C L Pulse Rate 57 L 71 70 Respiratory Rate 17 14 Blood Pressure 130/54 L 151/70 H Pulse Oximetry 97 97 Oxygen Delivery Fraction of Inspired Oxygen 10/25/24 08:11 10/25/24 08:11 Temperature Pulse Rate 70 81 Respiratory Rate 14 Blood Pressure Pulse Oximetry 97 Oxygen Delivery Room Air Fraction of Inspired Oxygen 21 Intake/Output Intake/Output: Intake & Output 10/22/24 10/23/24 10/24/24 10/25/24 23:59 23:59 23:59 23:59 Intake Total 2848.3 2200.3 3083.3 1435 Output Total 1550 1601 600 150 Balance 1298.3 599.3 2483.3 1285 Meds/Results Medications: Active Medications Generic Name Dose Route Start Last Admin Trade Name Freq PRN Reason Stop Dose Admin Atorvastatin Calcium 40 mg 10/24/24 09:00 10/25/24 08:11 Atorvastatin 40 Mg Tablet PO 40 mg DAILY LESLEY Administration Enoxaparin Sodium 40 mg 10/22/24 09:00 10/25/24 08:11 Enoxaparin 40 Mg/0.4 Ml Syringe SUB-Q 40 mg DAILY LESLEY Administration Famotidine 20 mg 10/24/24 09:00 10/25/24 08:11 Famotidine 20 Mg Tablet PO 20 mg Q12HR LESLEY Administration Hydralazine HCl 50 mg 10/24/24 09:00 10/25/24 08:11 Hydralazine Hcl 50 Mg Tablet PO 50 mg BID LESLEY Administration Hydrochlorothiazide 25 mg 10/24/24 09:00 10/25/24 08:11 Hydrochlorothiazide 25 Mg Tablet PO 25 mg DAILY LESLEY Administration Magnesium Sulfate 2 gm in 50 mls @ 25 mls/hr 10/25/24 09:43 Magnesium Sulf 2 Gm/Water 50ml IVPB 10/25/24 11:42 ONCE ONE Morphine Sulfate 2 mg 10/21/24 08:01 10/23/24 22:34 Morphine Sulfate (*Crx) 2 Mg/Ml Inj IV PUSH 2 mg Q2H PRN Administration Pain Rated 7-10 Ondansetron HCl 4 mg 10/21/24 08:01 10/23/24 12:41 Ondansetron Inj 4 Mg/2 Ml Vial IV PUSH 4 mg Q4H PRN Administration Nausea Perflutren Lipid Microsphere 0 ml 10/23/24 07:59 Perflutren Lipid Microspheres 1.5 Ml Vial Diluted To 10 Ml Total Volume IV PUSH 10/26/24 07:59 ONCE PRN adequate visualization Protocol Phenol 1 spray 10/22/24 08:24 10/22/24 09:32 Phenol/Sod Pheno [place] Nelson (*Bkc) MUCOUS MEM 1 spray PRN PRN Administration Sore Throat Radiology Results: ITS Impressions Abdomen/Pelvis CT 10/21/24 07:26 Impression: Small bowel obstruction, as detailed above. Associated small amount of ascites and mesenteric edema. Chest X-Ray 10/21/24 11:05 Impression: Clear lungs. Possible COPD. NG tube in place. Small Bowel X-Ray 10/23/24 12:53 IMPRESSION: 1. Persistent mild dilation of a few loops of small bowel in the mid to left lower quadrant of the abdomen with mildly delayed small bowel transit time of 3 hours consistent with persistent partial small bowel obstruction. Abdomen X-Ray 10/24/24 06:34 Impression: Nonspecific bowel gas pattern overall. NG tube in place. Labs Labs: Laboratory Results - last 24 hr 10/25/24 04:36 WBC 9.4 RBC 3.45 L Hgb 10.0 L Hct 32.6 L MCV 94.5 MCH 29.0 MCHC 30.7 L RDW 14.6 H Plt Count 168 MPV 11.3 H Sodium 139 Potassium 4.0 Chloride 113 H Carbon Dioxide 23 Anion Gap 3 L BUN 6 L Creatinine 0.64 L Estim Creat Clear Calc 43 Estimated GFR > 60 Glucose 97 Calcium 8.2 L Magnesium 1.5 L
[2024-10-25] MEDS: MAGNESIUM SULF 2 GM/WATER 50ML 2 GM/50 ML BAG IVPB (10:54)
--- NOTE | 2024-10-25 11:18 | PM.IMPN ---
Subjective Date/time seen: 10/25/24 11:18 Review of Systems Review of Systems: All systems reviewed & are unremarkable except as noted in HPI and below Objective Data Vital Signs Vital Signs: Vital Signs - 24 hr 10/24/24 12:00 10/24/24 14:00 10/24/24 16:00 Temperature Pulse Rate 84 82 71 Respiratory Rate 16 Blood Pressure 112/48 L Pulse Oximetry 98 Oxygen Delivery Fraction of Inspired Oxygen 10/24/24 16:48 10/24/24 20:00 10/24/24 20:00 Temperature Pulse Rate 62 Respiratory Rate Blood Pressure 132/51 L Pulse Oximetry Oxygen Delivery Room Air Fraction of Inspired Oxygen 10/24/24 20:30 10/24/24 20:38 10/25/24 00:00 Temperature 98.4 F Pulse Rate 61 64 73 Respiratory Rate 17 20 Blood Pressure 153/60 H Pulse Oximetry 97 92 Oxygen Delivery Room Air Fraction of Inspired Oxygen 21 10/25/24 04:00 10/25/24 05:08 10/25/24 08:09 Temperature 97.7 F 97.1 F L Pulse Rate 57 L 71 70 Respiratory Rate 17 14 Blood Pressure 130/54 L 151/70 H Pulse Oximetry 97 97 Oxygen Delivery Fraction of Inspired Oxygen 10/25/24 08:11 10/25/24 08:11 Temperature Pulse Rate 70 81 Respiratory Rate 14 Blood Pressure Pulse Oximetry 97 Oxygen Delivery Room Air Fraction of Inspired Oxygen 21 Intake/Output Intake/Output: Intake & Output 10/22/24 10/23/24 10/24/24 10/25/24 23:59 23:59 23:59 23:59 Intake Total 2848.3 2200.3 3083.3 1435 Output Total 1550 1601 600 150 Balance 1298.3 599.3 2483.3 1285 Meds/Results Medications: Active Medications Generic Name Dose Route Start Last Admin Trade Name Freq PRN Reason Stop Dose Admin Atorvastatin Calcium 40 mg 10/24/24 09:00 10/25/24 08:11 Atorvastatin 40 Mg Tablet PO 40 mg DAILY LESLEY Administration Enoxaparin Sodium 40 mg 10/22/24 09:00 10/25/24 08:11 Enoxaparin 40 Mg/0.4 Ml Syringe SUB-Q 40 mg DAILY LESLEY Administration Famotidine 20 mg 10/24/24 09:00 10/25/24 08:11 Famotidine 20 Mg Tablet PO 20 mg Q12HR LESLEY Administration Hydralazine HCl 50 mg 10/24/24 09:00 10/25/24 08:11 Hydralazine Hcl 50 Mg Tablet PO 50 mg BID LESLEY Administration Hydrochlorothiazide 25 mg 10/24/24 09:00 10/25/24 08:11 Hydrochlorothiazide 25 Mg Tablet PO 25 mg DAILY LESLEY Administration Magnesium Sulfate 2 gm in 50 mls @ 25 mls/hr 10/25/24 09:43 10/25/24 10:54 Magnesium Sulf 2 Gm/Water 50ml IVPB 10/25/24 11:42 25 mls/hr ONCE ONE Administration Morphine Sulfate 2 mg 10/21/24 08:01 10/23/24 22:34 Morphine Sulfate (*Crx) 2 Mg/Ml Inj IV PUSH 2 mg Q2H PRN Administration Pain Rated 7-10 Ondansetron HCl 4 mg 10/21/24 08:01 10/23/24 12:41 Ondansetron Inj 4 Mg/2 Ml Vial IV PUSH 4 mg Q4H PRN Administration Nausea Perflutren Lipid Microsphere 0 ml 10/23/24 07:59 Perflutren Lipid Microspheres 1.5 Ml Vial Diluted To 10 Ml Total Volume IV PUSH 10/26/24 07:59 ONCE PRN adequate visualization Protocol Phenol 1 spray 10/22/24 08:24 10/22/24 09:32 Phenol/Sod Pheno [place] Nelson (*Bkc) MUCOUS MEM 1 spray PRN PRN Administration Sore Throat Radiology Results: ITS Impressions Abdomen/Pelvis CT 10/21/24 07:26 Impression: Small bowel obstruction, as detailed above. Associated small amount of ascites and mesenteric edema. Chest X-Ray 10/21/24 11:05 Impression: Clear lungs. Possible COPD. NG tube in place. Small Bowel X-Ray 10/23/24 12:53 IMPRESSION: 1. Persistent mild dilation of a few loops of small bowel in the mid to left lower quadrant of the abdomen with mildly delayed small bowel transit time of 3 hours consistent with persistent partial small bowel obstruction. Abdomen X-Ray 10/24/24 06:34 Impression: Nonspecific bowel gas pattern overall. NG tube in place. Labs Labs: Laboratory Results - last 24 hr 10/25/24 04:36 WBC 9.4 RBC 3.45 L Hgb 10.0 L Hct 32.6 L MCV 94.5 MCH 29.0 MCHC 30.7 L RDW 14.6 H Plt Count 168 MPV 11.3 H Sodium 139 Potassium 4.0 Chloride 113 H Carbon Dioxide 23 Anion Gap 3 L BUN 6 L Creatinine 0.64 L Estim Creat Clear Calc 43 Estimated GFR > 60 Glucose 97 Calcium 8.2 L Magnesium 1.5 L
--- NOTE | 2024-10-25 11:21 | P.DS_ITS ---
DS: Admitting Diagnosis Discharge Date 10/25/2024 Admitting Diagnosis Abdominal pain DS: Discharge Diagnosis Discharge Diagnosis (1) Atrial fibrillation: Code(s): I48.91 - Unspecified atrial fibrillation Status: Acute (2) Small bowel obstruction: Code(s): K56.609 - Unspecified intestinal obstruction, unspecified as to partial versus complete obstruction Status: Acute (3) HTN (hypertension): Code(s): I10 - Essential (primary) hypertension Status: Acute (4) HLD (hyperlipidemia): Code(s): E78.5 - Hyperlipidemia, unspecified Status: Acute (5) Hypomagnesemia: Code(s): E83.42 - Hypomagnesemia Status: Acute DS: Summary Hospital Course Hospital Course: ER work up: notable for blood pressure 182/88, labs WBC 16.2, potassium 2.7, lactic acid 3.3, UA are unremarkable. EKG showed atrial fibrillation with rate of 94. CT abdomen showed a small-bowel obstruction associated with ascites and mesenteric edema. Surgery consulted. NG tube placed. Chest X-ray: clear lungs. Possible COPD, NG tube in place. ECG showed Atrial fibrillation 94 with QTc 510. Echocardiogram 10/21/24: Summary 1. Complete two-dimensional, color flow and Doppler transthoracic echocardiogram is performed. 2. Left ventricular chamber dimension is normal. 3. Left ventricular systolic function is normal, estimated at 65-70. 4. There is mildly increased left ventricular wall thickness. 5. The left ventricular diastolic function is grade I diastolic dysfunction. 6. Left atrial chamber dimension is severely enlarged. 7. There is mild mitral valve regurgitation. 8. The mitral valve annulus is severely calcified. 9. There is mild tricuspid valve regurgitation. 10. Mild pulmonary hypertension, estimated pulmonary arterial systolic pressure is 41 mmHg. 11. There is mild pulmonic regurgitation. 12. The aortic root size at the sinus of Valsalva is mildly dilated. Small Bowel X-Ray 10/23/24 12:53 IMPRESSION: 1. Persistent mild dilation of a few loops of small bowel in the mid to left lower quadrant of the abdomen with mildly delayed small bowel transit time of 3 hours consistent with persistent partial small bowel obstruction. Abdomen X-Ray 10/24/24 06:34 Impression: Nonspecific bowel gas pattern overall. NG tube in place. NG tube removed 10/24. Patient tolerated food well and had 3 bowel movements. Potassium and magnesium replaced. Cardiology consulted for atrial fibrillation. Patient to start Apixaban 5 mg PO BID. Status at Discharge Functional status at discharge: independent ambulation Overall status at discharge: patient is progressing back to baseline Time Spent with Patient Time attestation: Total time spent providing and/or coordinating discharge services: Time spent: Greater than 30 minutes Exam Const: General: comfortable and no acute distress Resp: Effort & Inspection: normal respiratory effort Auscultation: clear to auscultation bilaterally Cardio: Rate: regular rate Rhythm: regular rhythm Other: Telemetry- SR 73. GI: GI Palp: Yes Soft to palpation Auscultation: normal bowel sounds Extrem: General: pedal edema bilaterally (trace edema) Psych: Mental Status: mental status grossly normal Affect: normal affect DS: Data Data Completed and Pending Labs on day of discharge: Labs from last 24 hours 10/25/24 04:36 WBC 9.4 RBC 3.45 L Hgb 10.0 L Hct 32.6 L MCV 94.5 MCH 29.0 MCHC 30.7 L RDW 14.6 H Plt Count 168 MPV 11.3 H Sodium 139 Potassium 4.0 Chloride 113 H Carbon Dioxide 23 Anion Gap 3 L BUN 6 L Creatinine 0.64 L Estim Creat Clear Calc 43 Estimated GFR > 60 Glucose 97 Calcium 8.2 L Magnesium 1.5 L Discharge Plan Discharge Attending physician on discharge: Jaimie Law Consulting providers: Anita Espinosa; Genaro Miner; Travis Ac Discharging Clinician: Vika Baez Anticipated Discharge Date/Time: 10/25/24 14:00 Patient Disposition: Home Activity: may shower and as tolerated Diet: regular Discharge Instructions: * Take medications as prescribed. * Report to provider if you develop palpitations or shortness of breath. * Report to provider if you develop abdominal pain, abdominal distension, inability to have a bowel movement, fever >101, nausea, and vomiting. * Report any bleeding, increased bruising, dark stools, or blood in stool to provider. * Take Metronidazole and Omeprazole as directed by ordering provider. Thank you for entrusting [facility] with your Healthcare! Patient Instructions: Antibiotic Form, Apixaban (By mouth), A-fib (Atrial Fibrillation) (DC), Hypomagnesemia (DC), Bowel Obstruction (DC) Patient Language: Kuwaiti Stand Alone Forms: General Discharge Information Follow-up/Referrals: Herlinda Peña [Other] - 1 Week Travis Ac MD [Physician] - 4 Weeks Discharge Medications: New Eliquis 5 mg tablet 5 mg PO BID Qty: 60 0RF Continued metronidazole 500 mg tablet 500 mg PO omeprazole 20 mg capsule,delayed release(DR/EC) atorvastatin 40 mg tablet 40 mg PO DAILY Qty: 100 2RF hydrochlorothiazide 25 mg tablet 25 mg PO DAILY Qty: 90 3RF hydralazine 50 mg tablet 50 mg PO BID Qty: 180 0RF Rx Instructions: Last refill, needs appt. Date of admission: 10/21/24 08:55 Primary Care Provider: Herlinda Peña Admitting Provider: Pal Tong Attending physician on admission: Jillian La Condition: Stable Hospitalist MIPS Heart Failure (Exclusion) Patient has history of Heart Transplant or Left Ventricular Assistive Device?: No IF YES, STOP HERE Heart Failure (Qualifier) Patient has current or prior documentation of LVEF less than or equal to 40%, or mod/servere depressed LVSF?: No IF NO, STOP HERE
[2024-10-25 13:21] LABS: Magnesium 2.3 mg/dL (1.6-2.3)
[2024-10-25 14:00] VITALS: BP 135/46; PULSE 93; RESP 18; TEMP 36.7; O2SAT 98
== END 2024-10-25 19:14 | disposition home or self-care (01) | DRG 390 ==
LOC: ANHED 07:21 → ANH2MED 08:41
PROVIDERS: Emergency Medicine; Internal Medicine Cardiovascular Disease; Surgery; Admitting Provider Internal Medicine; Emergency Provider Student in an Organized Health Care Education/Training Program; Visit Provider Nurse Practitioner Family
DX: K56.609 Unspecified intestinal obstruction, unspecified as to partial versus complete obstruction (principal); E78.5 Hyperlipidemia, unspecified; E83.42 Hypomagnesemia; E87.6 Hypokalemia; I48.0 Paroxysmal atrial fibrillation; I73.9 Peripheral vascular disease, unspecified; R73.9 Hyperglycemia, unspecified; Z90.49 Acquired absence of other specified parts of digestive tract; Z87.891 Personal history of nicotine dependence; I11.0 Hypertensive heart disease with heart failure; I50.9 Heart failure, unspecified; Z90.710 Acquired absence of both cervix and uterus
CPT/HCPCS: 36415; 71045; 74018; 74177; 74250; 80048; 80053; 81003; 83605; 83690; 83735; 84132; 84443; 85025; 85027; 93005; 93306; 96361; 96365; 96375; 96376; 99285; A9270; G0378; J0360; J1650; J2270; J2405; J2470; J3475; J3480; J7040; J7120; Q9967

== ENCOUNTER 2025-01-24 16:49 | Outpatient (NON) | payer MEDICARE, SELFPAY ==
--- OUTSIDE RECORDS SUMMARY | 2025-01-24 16:54 | XMS_ITS | Clinical Summary ---
Author Organization [address] Address [address] [facility] [address] [place] [address] Care Team Providers Care Health Associate Name Role Phone Herlinda Peña NP Primary Care Provider Allergies No known active allergies Medications hydrALAZINE (APRESOLINE) 50 mg tablet Take 1 tablet (50 mg total) by mouth 2 (two) times a day 04/13/2023 Active atorvastatin (LIPITOR) 40 mg tablet Take 1 tablet (40 mg total) by mouth every morning 09/10/2021 Active omeprazole (PriLOSEC) 20 mg capsule Take 1 capsule (20 mg total) by mouth daily 10/15/2024 Active Eliquis 5 mg tablet Take 1 tablet (5 mg total) by mouth 2 (two) times a day 11/30/2024 Active hydroCHLOROthia zide (HYDRODIURIL) 25 mg tablet Take 1 tablet (25 mg total) by mouth daily 12/19/2024 Active Active Problems No known active problems Encounters Date Type Department Care Team Description 01/03/2025 11:15 AM CDT Office Visit [facility] [address] [facility] [address] [place] [phone] Julito Taveras MD Atrial fibrillation, unspecified type (HCC) 01/03/2025 Orders Only [facility] [address] [facility] [address] [place] [phone] Michael Michelle MD 10/30/2024 Orders Only [facility] Cardiology [address] [facility] [address] [place] [phone] Julito Taveras MD 10/25/2024 Orders Only [facility] Cardiology [address] [place] [phone] Travis Ac MD from Last 3 Months Medical History Medical History Date Comments Atrial fibrillation (HCC) Social History Tobacco Use Types Packs/Day Years Used Date Smoking Tobacco: Former Cigarettes Smokeless Tobacco: Never Tobacco Cessation:Counseling Given: Not Answered Comments Unknown Sex and Gender Information Value Date Recorded Sex Assigned at Not on file Legal Sex Female 11:16 AM CDT Gender Identity Not on file Sexual Orientation Not on file Obstetrics History Last Filed Vital Signs Vital Sign Reading Time Taken Comments Blood Pressure 134/74 01/03/2025 11:13 AM CDT Pulse 67 01/03/2025 11:13 AM CDT Temperature - - Respiratory Rate - - Oxygen Saturation 98% 01/03/2025 11:13 AM CDT Inhaled Oxygen Concentration - - Weight 53.5 kg (118 lb) 01/03/2025 11:13 AM CDT Height 152.4 cm (5') 01/03/2025 11:13 AM CDT Body Mass Index 23.05 01/03/2025 11:13 AM CDT Plan of Treatment Health Maintenance Due Date Last Done Comments Depression Screening 1935 Fall Risk Assessment 1935 DTaP/Tdap/Td Vaccine (1 - Tdap) 12/05/1946 Hepatitis B Screening 12/05/1953 Zoster Vaccine (1 of 2) 12/05/1985 Well Visit 65+ 12/05/2000 Covid-19 Vaccine (6 2023-2 5 season) 2024 03/03/2022, 07/03/2021, 06/12/2021, Additional history exists Influenza Vaccine (#1) 2025 , 04/21/2021, 03/27/2020, Additional history exists Osteoporosis Screening-Bone Density Scan 05/15/2026 05/15/2024 Pneumococcal vaccine 65+ Completed 12/22/2021, 12/2016 Procedures Procedure Name Priority Date/Time Associated Diagnosis Comments LIPID PANEL Routine 11/08/2024 1:21 PM CDT CARDIOLOGY DOCUMENT SCAN Routine 10/25/2024 1:38 PM CDT CARDIOLOGY DOCUMENT SCAN Routine 10/24/2024 2:49 PM CDT from Last 3 Months Results * Lipid panel (11/08/2024 1:21 PM CDT) SCRIBED Cholesterol, Total 136 30 - 199 mg/dL EXTERNAL LAB SCRIBED Triglycerides 52 <=149 mg/dL EXTERNAL LAB SCRIBED HDL 52 >=40 mg/dL EXTERNAL LAB SCRIBED LDL 71 <=129 mg/dL EXTERNAL LAB Scribed Non-HDL Cholesterol 84 NONE mg/dL EXTERNAL LAB SCRIBED Total Cholesterol/HDL Ratio 136 NONE EXTERNAL LAB Blood Historical Provider LAB BLOOD ORDERABLES Edit ed Result - Final EXTERNAL LAB * Cardiology Document Scan (10/25/2024 1:38 PM CDT) Anatomical Region Laterality Modality Other us Julito Taveras MD [facility] PROCEDURES F inal Result * Cardiology Document Scan (10/24/2024 2:49 PM CDT) Anatomical Region Laterality Modality Other Travis Ac MD [facility] CARDIAC SERVICES PROCE DURES Final Result from Last 3 Months Insurance [employer] CHO[employer] MEDICARE PPO Care Teams Health Associate Relationship Specialty Start Date End Date Herlinda Peña NP [address] [place] [address] PCP - General Family Medicine 11/16/24
--- OUTSIDE RECORDS SUMMARY | 2025-01-24 16:54 | XMS_ITS | Clinical Summary ---
Author Organization [facility] Address [address] [place] [phone] Phone Care Team Providers Care Blade Groover Name Role Phone Provider, None Primary Care [...] Health Maintenance Due Date Last Done Comments Hepatitis C Virus (HCV) Screening 1935 TdaP Immunization 1935 Zoster Immunization (1 of 2) 12/05/1985 Respiratory Syncytial Virus (RSV) Immunization (Adult) (1 - 1-dose 75+ series) 12/05/2010 SARS-COV-2 Immunization ( season) 2024 03/03/2022, 07/03/2021, 06/12/2021, Additional history exists Influenza Immunization (#1) 02/04/202504/06, 04/21/2021, 03/27/2020, Additional history exists Pneumococcal Immunization (50+ years) Completed 12/22/2021, 02/10/2017 Hepatitis B Immunization Aged Out No longer eligible based on patient's age to complete this topic Human Papillomavirus (HPV) Immunization Aged Out No longer eligible based on patient's age to complete this topic Meningococcal Immunization (ACWY) Aged Out No longer eligible based on patient's age to complete this topic Rotavirus Immunization Aged Out No lo nger eligible based on patient's age to complete this topic Insurance MEDICARE C [employer] Care Teams Blade Groover Relationship Specialty Start Date End Date Provider, None [place] PCP - General 09/07/22
[2025-01-27 15:08] LABS: H. pylori Stool Ag, EIA Negative (Negative)
== END 2025-01-24 16:50 | disposition home or self-care (01) ==
PROVIDERS: Visit Provider Nurse Practitioner Family
DX: K29.70 Gastritis, unspecified, without bleeding (principal); B96.81 Helicobacter pylori [H. pylori] as the cause of diseases classified elsewhere
CPT/HCPCS: 87338